=== PATIENT | female | born 1955 | race Caucasian/White ===

== ENCOUNTER 2023-08-23 14:17 | Inpatient (IN) ==
--- NOTE | 2023-08-23 14:42 | Emergency Department Note ---
Impression & Plan Abdominal pain, acute, epigastric, Small bowel obstruction, Enteritis ED Provider Note Provider: Willie Mcdonnell MD DATE OF SERVICE: 08/23/2023 CHIEF COMPLAINT: Abdominal pain HISTORY OF PRESENT ILLNESS: Patient is a 67-year-old female history of arthritis, GERD/ulcers, and stroke presenting here today reporting significant upper abdominal pain radiating to her back developing today with nausea. No trauma or syncope. No diarrhea. No history of similar. States it started around 7 AM. Had some food and did not change anything. Took some Tums at home and did not change pain. Has moderate a little bit from when she left [place] to come here. No trauma. No syncope. Pain in the epigastrium rating to the back as well as some chest discomfort. No pain in the arms or upper back or chest pain. History of appendectomy. PAST MEDICAL HISTORY: As noted above MEDICATIONS: Reviewed home medications includes aspirin daily as well as PPI SOCIAL HISTORY: Rare alcohol. Non-smoker PHYSICAL EXAM: GENERAL: alert and oriented in no acute distress on stretcher Head: normocephalic and atraumatic EYES: No injection, discharge or icterus. NECK: Trachea midline. ENT: Mucous membranes pink and moist. LUNGS: Airway patent. No retractions. Breath sounds clear HEART: Regular rate and rhythm. No chest wall tenderness ABDOMEN: Soft with some epigastric tenderness and guarding. No lower abdominal tenderness. BACK: No bilateral flank tenderness. SKIN: Acyanotic, warm, dry, without rashes EXTREMITIES: Without swelling, tenderness or deformity with some arthritic deformities to the hand NEUROLOGICAL: No focal deficits. No aphasia. No facial droop or slurred speech. Ambulatory. EK bpm normal sinus rhythm. No PVC or PAC. No acute ST segment elevation or depression with a QTc of 459. CONTINUOUS CARDIAC MONITORING: was ordered and showed a heart rate of 70s bpm in normal sinus rhythm Patient's laboratory studies and imaging reviewed. Differential includes Appendicitis, infections, diverticulitis, UTI, obstruction, mesenteric ischemia, aortic pathology, CAD/KS/ACS, inflammatory bowel disease, renal colic, PUD, pancreatitis, biliary pathology, hernia, volvulus, constipation, as well as other pathologies. IMPRESSION/MEDICAL DECISION MAKING: Patient without focal deficit and in good spirits. Moderate pain in the epigastrium radiating to the back. EKG obtained without significant acute changes. Is somewhat hypertensive here. Question if this is GI related such as pancreatitis, gastric ulcer/gastritis, or biliary related. Will wish to exclude dissection given location of pain. Troponin will be sent for completeness but seems less likely be true ACS. Doubt primary pulmonary complaint denies shortness of breath. Not hypoxic here. Nausea has moderated at this point. Given some morphine for pain. Will send for CTA of the chest and abdomen pelvis in addition to blood work for further elucidation of underlying pathology of her complaints. Blood work without anemia or thrombocytopenia. Slight leukocytosis of 13.7 as noted on blood work. Normal renal function. No significant LFT abnormalities or lipase elevation and doubt hepatitis or pancreatitis. Normal troponin. CT of the chest per radiology without evidence of dissection with small and trace pleural effusions and some coronary artery calcification. Abdominal CT without evidence of dissection per report but with some evidence however concerning for nonspecific enteritis as well as an area in the left mid abdomen that may be an associated ileus or developing small bowel obstruction. No free air or pneumatosis is noted. Given her symptoms do question if this might be a developing SBO. Discussed with the patient recommend that we monitor here at the hospital. Do not believe NG tube is needed at this point but low threshold. Not peritoneal and severe pain after dose of morphine and doubt ischemia. Discussed with hospitalist team for further care here. DIAGNOSIS: Epigastric pain, enteritis, SBO DISPOSITION: Hospitalist will evaluate Patient was agreeable with this plan. Past Med/Surg History Medical History CVA (cerebral vascular accident) History of nonmelanoma skin cancer Steroid dependence Primary insomnia Obesity Rheumatoid arthritis GERD (gastroesophageal reflux disease) Vasculopathy HTN (hypertension) Reactive airway disease without complication Dyslipidemia Surgical History Hx of tonsillectomy S/P appy S/P total knee arthroplasty Social History Smoking Status: Former smoker Tobacco Type: Cigarettes Cigarettes Per Day: 1 1/2 PPD; Hx Alcohol Use: Yes Hx Substance Use: No Preferred Language: Turkish Communication Ability: Effective Primary Products Inspectors Required: No Beliefs That Will Affect Care: None Current Living Situation: Spouse Feels Safe at Home: Yes Safety Concerns: Feels Safe At This Time Assistive Devices: Hearing Aid - Bilateral Allergies Allergies Allergy/AdvReac Type Severity Reaction Status Date / Time leflunomide [From Arava] AdvReac Unknown Unknown Verified 08/23/23 16:34 Sulfa (Sulfonamide AdvReac Unknown Unknown Verified 08/23/23 16:34 Antibiotics) Home Meds Home Medications Medication Instructions Recorded Confirmed abatacept 125 mg/mL subcutaneous 125 mg subcut WK 08/23/23 08/23/23 syringe (Orencia) albuterol sulfate 90 mcg/actuation 2 puff inhalation Q4H PRN 08/23/23 08/23/23 aerosol inhaler Shortness Of Breath alendronate 70 mg tablet 70 mg PO WK 08/23/23 08/23/23 aspirin 325 mg tablet 325 mg PO DAILY 08/23/23 08/23/23 cholecalciferol (vitamin D3) 125 125 mcg PO DAILY 08/23/23 08/23/23 mcg (5,000 unit) capsule fluticasone furoate 100 2 inh inhalation QAM 08/23/23 08/23/23 mcg-vilanterol 25 mcg/dose inhalation powder (Breo Ellipta) folic acid 1 mg tablet 1 mg PO QAM 08/23/23 08/23/23 hydrochlorothiazide 25 mg tablet 25 mg PO QAM 08/23/23 08/23/23 hydrocodone 5 mg-acetaminophen 325 1 tab PO Q6H PRN Pain 08/23/23 08/23/23 mg tablet hydroxychloroquine 200 mg tablet 200 mg PO HS 08/23/23 08/23/23 losartan 25 mg tablet 25 mg PO QAM 08/23/23 08/23/23 methotrexate sodium 2.5 mg tablet 20 mg PO WK 08/23/23 08/23/23 metoprolol succinate 25 mg 25 mg PO HS 08/23/23 08/23/23 tablet,extended release 24 hr multivitamin 1 tab PO DAILY 08/23/23 08/23/23 omeprazole 20 mg capsule,delayed 20 mg PO BID 08/23/23 08/23/23 release pravastatin 20 mg tablet 20 mg PO HS 08/23/23 08/23/23 prednisone 5 mg tablet 5 mg PO DAILY 08/23/23 08/23/23 temazepam 30 mg capsule 15 mg PO HS 08/23/23 08/23/23 Results & Data (ED) Vital Signs Vital Signs - 24 hr 08/23/23 14:21 08/23/23 14:46 08/23/23 14:46 Temperature 36.4 C L Temperature Source Temporal Artery Scan Pulse Rate 78 75 Pulse Rate [Right Finger] 73 Respiratory Rate 20 16 16 Respiratory Effort / Characteristics Non-Labored Spontaneous Respiratory Depth Normal Blood Pressure 160/92 H Blood Pressure [Left Arm] 140/83 Blood Pressure Mean 114 Blood Pressure Mean [Left Arm] 102 Pulse Oximetry 95 96 96 Oxygen Delivery Method Room Air Room Air Room Air Sepsis Recent Fever Within 48 Hours No Sepsis New/Unexplained Change in Mental Status N/A Sepsis Action Taken by Nursing No Action Required 08/23/23 16:17 Temperature Temperature Source Pulse Rate Pulse Rate [Right Finger] 72 Respiratory Rate 18 Respiratory Effort / Characteristics Respiratory Depth Blood Pressure Blood Pressure [Left Arm] 140/83 Blood Pressure Mean Blood Pressure Mean [Left Arm] 102 Pulse Oximetry 97 Oxygen Delivery Method Sepsis Recent Fever Within 48 Hours Sepsis New/Unexplained Change in Mental Status Sepsis Action Taken by Nursing Laboratory Data 08/23/23 14:40 08/23/23 14:40 Lab Results 08/23/23 Range/Units 14:40 WBC 13.70 H (4.8-10.8) K/ul RBC 4.60 (4.20-5.40) M/uL Hgb 14.3 (12.0-16.0) g/dl POC Hgb 14.6 (12.0-16.0) g/dl Hct 42.5 (37.0-47.0) % POC Hct 43 (37-47) % MCV 92.4 (80.0-100.0) fL MCH 31.1 (25.0-34.0) pg MCHC 33.6 (32.0-36.0) g/dL RDW Std Deviation 44.2 (36.4-46.3) fL RDW Coeff of Viraj 13.2 (11.5-14.5) % Plt Count 292 (130-400) K/uL MPV 10.5 (9.4-12.4) fL Immature Gran % (Auto) 0.5 % Neut % (Auto) 80.5 % Lymph % (Auto) 11.6 % Mesa % (Auto) 6.9 % Eos % (Auto) 0.2 % Baso % (Auto) 0.3 % Neut # (Auto) 11.03 H (1.40-6.50) K/uL Lymph # (Auto) 1.59 (1.20-3.40) K/uL Mesa # (Auto) 0.94 H (0.11-0.59) K/uL Eos # (Auto) 0.03 (0.00-0.50) K/uL Baso # (Auto) 0.04 (0.00-0.20) K/uL Immature Gran # (Auto) 0.07 (0.01-0.20) K/uL PT 11.1 (9.0-12.0) Seconds INR 1.0 (0.9-1.1) POC Sodium 133 L (135-144) mmol/L Sodium 133 L (136-145) mmol/L POC Potassium 3.4 (3.3-5.0) mmol/L Potassium 3.6 (3.5-5.1) mmol/L POC Chloride 96 L (101-112) mmol/L Chloride 97 L (98-107) mmol/L Carbon Dioxide 28 (21-32) mmol/L POC Total CO2 26 (24-31) mmol/L Anion Gap 8 (3-11) POC Anion Gap 14.0 L (16-25) mmol/L POC BUN 13 (7-18) mg/dl BUN 14 (6-23) mg/dl Creatinine 0.67 (0.6-1.2) mg/dl POC Creatinine 0.7 (0.6-1.3) mg/dl Est Cr Clr Drug Dosing 81.6 ml/min Est GFR ( Amer) 103.9 ml/min Est GFR (Non-Af Amer) 89.7 ml/min BUN/Creatinine Ratio 20.9 H (10-20) Glucose 117 H (70-99(Fasting)) mg/dl POC Glucose (other) 121 H (70-99) mg/dl Calcium 9.7 (8.6-10.3) mg/dl POC Ioniz Calcium Mikala 1.14 (1.12-1.32) mmol/l Total Bilirubin 0.9 (0.2-1.0) mg/dl AST 13 (13-39) U/L ALT 12 (7-52) U/L Alkaline Phosphatase 61 (34-104) U/L Troponin I High Sens 8.0 (0-14) pg/ml Total Protein 6.9 (6.0-8.3) gm/dl Albumin 4.1 (3.4-5.0) gm/dl Globulin 2.8 (2.5-4.0) gm/dl Albumin/Globulin Ratio 1.5 (0.9-2) Lipase 4 L (11-82) U/L Administered Medications Hydroxychloroquine Sulfate (Hydroxychloroquine Sulfate 200 Mg Tab) 200 mg PO HS PAOLA Stop: 09/22/23 20:59 Last Admin: 08/23/23 21:06 Dose: 200 mg Documented By: SAVANAH Potassium Chloride/Dextrose/Sod Cl (D5w And 1/2nss + 20meq Kcl) 20 meq in 1,000 mls @ 100 mls/hr IV .Q10H PAOLA; Protocol Stop: 09/22/23 18:14 Last Admin: 08/23/23 20:40 Dose: 100 mls/hr Documented By: SAVANAH Metoprolol Succinate (Metoprolol Succ 25mg Ext Rel Tab) 25 mg PO HS [facility] Stop: 09/22/23 20:59 Last Admin: 08/23/23 21:06 Dose: 25 mg Documented By: SAVANAH Pantoprazole Sodium (Pantoprazole 40 Mg Tab) 40 mg PO BID PAOLA Stop: 09/22/23 20:59 Last Admin: 08/23/23 21:06 Dose: 40 mg Documented By: SAVANAH Temazepam (Temazepam 15 Mg Capsule) 15 mg PO HS [facility] Stop: 09/22/23 20:59 Last Admin: 08/23/23 21:09 Dose: 15 mg Documented By: SAVANAH Discontinued Medications Ioversol (Optiray 350 500ml) 112 ml IV ONCE ONE Stop: 08/23/23 14:53 Last Admin: 08/23/23 14:52 Dose: 112 ml Documented By: MERCY Morphine Sulfate (Morphine Sulfate 4 Mg/Ml 1 Ml Carp\Vial) 4 mg IV NOW STA Stop: 08/23/23 14:43 Last Admin: 08/23/23 15:13 Dose: 4 mg Documented By: LYDIA Imaging Data Radiologist's Impression: Abdomen/Pelvis CTA 08/23/23 14:39 CT ANGIOGRAM OF THE ABDOMEN AND PELVIS CLINICAL HISTORY: Epigastric abdominal pain. COMPARISON STUDY: No priors. TECHNIQUE: Following the IV administration of 112 cc of Optiray 350, CT angiogram of the abdomen and pelvis was performed from the lung bases the proximal femora. Images are reviewed in the axial, sagittal, and coronal planes. 3-D MIPS images are created and assessed. IV contrast was administered without complication. A dose lowering technique was utilized adhering to the principles of ALARA. FINDINGS: Lower chest: The heart is enlarged and without pericardial effusion. The coronary arteries are densely calcified. There are small pleural effusions, left larger than right noting bibasilar scarring/atelectasis. There is no airspace consolidation typical for pneumonia. Liver: The contrast-enhanced liver is normal in size, contour, and attenuation. There is no intrahepatic biliary ductal dilatation. The main portal veins appear patent. Gallbladder: Unremarkable. Spleen: Normal in size and attenuation noting heterogeneous arterial phase enhancement. Pancreas: Unremarkable. Adrenal glands: There is nonspecific thickening of the adrenal glands. Kidneys: The contrast enhanced kidneys are normal in size and without hydronephrosis. The kidneys enhance symmetrically. Abdominal aorta and iliac arteries: There is advanced atherosclerotic calcification and mild ectasia of the abdominal aorta. The abdominal aorta is patent. No dissection is seen. The iliac arteries are patent bilaterally noting advanced atherosclerotic plaque and irregularity. Major branches of the abdominal aorta: The celiac trunk, superior mesenteric, and inferior mesenteric arteries are widely patent. Hepatic arterial anatomy is conventional. The splenic artery is patent. Single bilateral renal arteries are widely patent. Bowel: There are hyperemic appearing loops of relatively decompressed small bowel in the left lower quadrant (best seen on axial image #482) with surrounding infiltration and trace interloop fluid. There are distended and fluid-filled loops of more proximal small bowel in the left midabdomen which measure up to 2.8 cm in diameter. There is an apparent focal twisting/transition point in the left midabdomen seen on axial image #371. The distal small bowel appears decompressed. There is no pneumatosis intestinalis or portal venous gas. There are scattered colonic diverticula without CT evidence of acute diverticulitis. Mild/moderate fecal retention is noted throughout the colon. A small duodenal diverticulum is noted. The appendix is not visualized. Peritoneum: There is no intraperitoneal free air or abdominal ascites. Lymphadenopathy: None. Pelvic viscera: The bladder, uterus, and adnexa are normal as visualized. There are bilateral adnexal surgical clips. A small volume of free fluid is seen in the cul-de-sac. Skeletal structures: The skeletal structures are osteopenic. There is mild to moderate lumbosacral spondylosis. No lytic or blastic bony lesions are seen. Advanced arthritic changes seen in the left hip. IMPRESSION: 1. Unremarkable CT angiogram of the abdominal aorta and its major branches. 2. There are decompressed loops of small bowel in the left mid to lower abdomen which appear hyperemic with surrounding mesenteric infiltration and fluid. The appearance is consistent with a nonspecific enteritis. 3. The proximal small bowel loops are distended, and there is an apparent focal transition point in the left mid abdomen. Although this may be related to an associated ileus, a developing small bowel obstruction is not excluded. The distal small bowel loops are decompressed. Clinical correlation will be essential. 4. No intraperitoneal free air is identified. There is no pneumatosis intestinalis or portal venous gas. 5. Cardiomegaly and small pleural effusions. 6. Additional findings as above.. ACT 112: Negative or not required by law. Electronically signed by: Jorje Hu M.D. 08/23/2023 3:39 PM Chest CTA 08/23/23 14:39 CT ANGIOGRAPHY OF THE CHEST DISSECTION PROTOCOL CLINICAL HISTORY: chest/epigastric pain to back COMPARISON STUDY: No previous studies for comparison. TECHNIQUE: Before and following the IV administration of 112 mL of Optiray, helical axial images of the chest were obtained. Maximal intensity projections and sagittal and coronal reformats were viewed on an independent 3D workstation. IV contrast was administered without complication. Automated exposure control was utilized for the study. A dose lowering technique was utilized adhering to the principles of ALARA. CT DOSE: 2571.78 mGy.cm FINDINGS: The caliber of the thoracic aorta is normal. There is no thoracic aortic dissection or intramural hematoma. There is moderate atherosclerotic plaque of the thoracic aorta. The heart is mildly enlarged. There is no pericardial effusion. There is moderate coronary artery calcification. Small left and trace right pleural effusions are present. Subpleural opacities favor atelectasis. There is no consolidation to suggest pneumonia. Suspected mild pulmonary edema with interlobular septal thickening. There are no pulmonary emboli. No acute fractures within the bony thorax. The abdomen and pelvis CT will be reported separately. IMPRESSION: 1. No thoracic aortic dissection. 2. Small left and trace right pleural effusions. 3. Mild cardiomegaly and moderate coronary artery calcification. 4. Mild interstitial pulmonary edema. ACT 112: Negative or not required by law. Electronically signed by: Claudio Sterling M.D. 08/23/2023 3:15 PM Discharge Plan Visit Data Chief Complaint: Abdominal Pain Stated Complaint: ABD PAIN, BACK PAIN ED Provider: Willie Mcdonnell Discharge Problem: Abdominal pain, acute, epigastric, Small bowel obstruction, Enteritis Patient Disposition: Admitted As Inpatient Discharge Instructions Interventions: ED Discharge Assessment Last Done: 08/23/23 17:38
[2023-08-23] MEDS: OPTIRAY 350 500ml IV ONE (14:52)
[2023-08-23 14:53] LABS: iSTAT Creatinine 0.7 mg/dl (0.6-1.3); iSTAT Hemoglobin 14.6 g/dl (12.0-16.0); iSTAT Ionized Calcium 1.14 mmol/l (1.12-1.32); iSTAT Potassium 3.4 mmol/L (3.3-5.0)
[2023-08-23 15:02] LABS: Basophils # (auto) 0.04 K/uL (0.00-0.20); Basophils % (auto) 0.3 %; Eosinophils # (auto) 0.03 K/uL (0.00-0.50); Eosinophils % (auto) 0.2 %; Hematocrit (blood only) 42.5 % (37.0-47.0); Hemoglobin 14.3 g/dl (12.0-16.0); Immature Granulocytes # (auto) 0.07 K/uL (0.01-0.20); Immature Granulocytes % (auto) 0.5 %; Lymphocytes # (auto) 1.59 K/uL (1.20-3.40); Lymphocytes % (auto) 11.6 %; Mean Corpuscular Hemoglobin 31.1 pg (25.0-34.0); Mean Corpuscular Hgb Conc 33.6 g/dL (32.0-36.0); Mean Corpuscular Volume 92.4 fL (80.0-100.0); Mean Platelet Volume 10.5 fL (9.4-12.4); Monocytes # (auto) 0.94 K/uL (0.11-0.59); Monocytes % (auto) 6.9 %; Neutrophils # (auto) 11.03 K/uL (1.40-6.50); Neutrophils % (auto) 80.5 %; Platelet Count 292 K/uL (130-400); RDW Coefficient of Variation 13.2 % (11.5-14.5); RDW Standard Deviation 44.2 fL (36.4-46.3)
[2023-08-23] MEDS: MoRPHine SULFATE 4 MG/ML 1 ML CARP\\VIAL IV STA (15:13)
--- NOTE | 2023-08-23 15:16 | CT Scan Report ---
CT ANGIOGRAPHY OF THE CHEST DISSECTION PROTOCOL CLINICAL HISTORY: chest/epigastric pain to back COMPARISON STUDY: No previous studies for comparison. TECHNIQUE: Before and following the IV administration of 112 mL of Optiray, helical axial images of t he chest were obtained. Maximal intensity projections and sagittal and coronal reformats were viewed on an independent 3D workstation. IV contrast was administered without complication. Automated exp osure control was utilized for the study. A dose lowering technique was utilized adhering to the cassidy Monteiro. CT DOSE: 2571.78 mGy.cm FINDINGS: The caliber of the thoracic aorta is normal. There is no thoracic aortic dissection or int ramural hematoma. There is moderate atherosclerotic plaque of the thoracic aorta. The heart is mildly enlarged. There is no pericardial effusion. There is moderate coronary artery calcification. Small l eft and trace right pleural effusions are present. Subpleural opacities favor atelectasis. There is n o consolidation to suggest pneumonia. Suspected mild pulmonary edema with interlobular septal thicken ing. There are no pulmonary emboli. No acute fractures within the bony thorax. The abdomen and pelvis CT will be reported separately. IMPRESSION: 1. No thoracic aortic dissection. 2. Small left and trace right pleural effusions. 3. Mild cardiomegaly and moderate coronary artery calcification. 4. Mild interstitial pulmonary edema. ACT 112: Negative or not required by law. Electronically signed by: Claudio Sterling M.D. 08/23/2023 3:15 PM
[2023-08-23 15:17] LABS: Albumin Globulin Ratio 1.5 (0.9-2); Albumin Level 4.1 gm/dl (3.4-5.0); BUN Creatinine Ratio 20.9 (10-20); Bilirubin,Total 0.9 mg/dl (0.2-1.0); Calcium 9.7 mg/dl (8.6-10.3); Creatinine Clr Calc Pharmacy 81.6 ml/min; Est GFR (African American) 103.9 ml/min; Est GFR (Non-African American) 89.7 ml/min; Globulin 2.8 gm/dl (2.5-4.0); Potassium 3.6 mmol/L (3.5-5.1); Total Protein 6.9 gm/dl (6.0-8.3)
[2023-08-23 15:33] LABS: Prothrombin Time 11.1 Seconds (9.0-12.0)
--- NOTE | 2023-08-23 15:39 | Electrocardiogram Report ---
Test Reason : Blood Pressure : / mmHG Vent. Rate : 077 BPM Atrial Rate : 077 BPM P-R Int : 146 ms QRS Dur : 094 ms QT Int : 406 ms P-R-T Axes : 034 005 031 degrees QTc Int : 459 ms Normal sinus rhythm Minimal voltage criteria for LVH, may be normal variant Possible Inferior infarct , age undetermined Abnormal ECG No previous ECGs available Confirmed by Ayan Sams ([id number]) on 08/23/2023 3:38:25 PM Referred By: Confirmed By:Adrian Sams
--- NOTE | 2023-08-23 15:40 | CT Scan Report ---
CT ANGIOGRAM OF THE ABDOMEN AND PELVIS CLINICAL HISTORY: Epigastric abdominal pain. COMPARISON STUDY: No priors. TECHNIQUE: Following the IV administration of 112 cc of Optiray 350, CT angiogram of the abdomen and pelvis was performed from the lung bases the proximal femora. Images are reviewed in the axial, sagit binh, and coronal planes. 3-D MIPS images are created and assessed. IV contrast was administered witho ut complication. A dose lowering technique was utilized adhering to the principles of ALARA. FINDINGS: Lower chest: The heart is enlarged and without pericardial effusion. The coronary arteries are densel y calcified. There are small pleural effusions, left larger than right noting bibasilar scarring/atel ectasis. There is no airspace consolidation typical for pneumonia. Liver: The contrast-enhanced liver is normal in size, contour, and attenuation. There is no intrahepa tic biliary ductal dilatation. The main portal veins appear patent. Gallbladder: Unremarkable. Spleen: Normal in size and attenuation noting heterogeneous arterial phase enhancement. Pancreas: Unremarkable. Adrenal glands: There is nonspecific thickening of the adrenal glands. Kidneys: The contrast enhanced kidneys are normal in size and without hydronephrosis. The kidneys enh ance symmetrically. Abdominal aorta and iliac arteries: There is advanced atherosclerotic calcification and mild ectasia of the abdominal aorta. The abdominal aorta is patent. No dissection is seen. The iliac arteries are patent bilaterally noting advanced atherosclerotic plaque and irregularity. Major branches of the abdominal aorta: The celiac trunk, superior mesenteric, and inferior mesenteric arteries are widely patent. Hepatic arterial anatomy is conventional. The splenic artery is patent. Single bilateral renal arteries are widely patent. Bowel: There are hyperemic appearing loops of relatively decompressed small bowel in the left lower q uadrant (best seen on axial image #482) with surrounding infiltration and trace interloop fluid. Ther e are distended and fluid-filled loops of more proximal small bowel in the left midabdomen which penelope ure up to 2.8 cm in diameter. There is an apparent focal twisting/transition point in the left midabd omen seen on axial image #371. The distal small bowel appears decompressed. There is no pneumatosis i ntestinalis or portal venous gas. There are scattered colonic diverticula without CT evidence of acut e diverticulitis. Mild/moderate fecal retention is noted throughout the colon. A small duodenal diver ticulum is noted. The appendix is not visualized. Peritoneum: There is no intraperitoneal free air or abdominal ascites. Lymphadenopathy: None. Pelvic viscera: The bladder, uterus, and adnexa are normal as visualized. There are bilateral adnexal surgical clips. A small volume of free fluid is seen in the cul-de-sac. Skeletal structures: The skeletal structures are osteopenic. There is mild to moderate lumbosacral sp ondylosis. No lytic or blastic bony lesions are seen. Advanced arthritic changes seen in the left hip . IMPRESSION: 1. Unremarkable CT angiogram of the abdominal aorta and its major branches. 2. There are decompressed loops of small bowel in the left mid to lower abdomen which appear hyperemi c with surrounding mesenteric infiltration and fluid. The appearance is consistent with a nonspecific enteritis. 3. The proximal small bowel loops are distended, and there is an apparent focal transition point in t he left mid abdomen. Although this may be related to an associated ileus, a developing small bowel ob struction is not excluded. The distal small bowel loops are decompressed. Clinical correlation will b e essential. 4. No intraperitoneal free air is identified. There is no pneumatosis intestinalis or portal venous g as. 5. Cardiomegaly and small pleural effusions. 6. Additional findings as above.. ACT 112: Negative or not required by law. Electronically signed by: Jorje Hu M.D. 08/23/2023 3:39 PM
--- NOTE | 2023-08-23 16:09 | History & Physical Report ---
Date of Service August 23, 2023 History of Present Illness Chief Complaint: abdominal pain Primary Care Provider: Ellis Matos MD Patient is 67 year old female with PMH reports this morning started with epigastric discomfort radiated to back and nausea and vomiting Past Med/Surg History Social History Smoking Status: Former smoker Preferred Language: Mauritian Feels Safe at Home: Yes Results & Data Results & Data Vital Signs (Past 12 Hours) Vital Signs Temp Pulse Pulse Resp BP BP Pulse Ox 08/23/23 14:46 75 16 96 08/23/23 14:46 73 16 140/83 96 08/23/23 14:21 36.4 C L 78 20 160/92 H 95 O2 Del Method 08/23/23 14:46 Room Air 08/23/23 14:46 Room Air 08/23/23 14:21 Room Air
--- NOTE | 2023-08-23 16:28 | History & Physical Report ---
Date of Service August 23, 2023 Assessment & Plan (1) Abdominal pain, acute, epigastric: (2) Small bowel obstruction: Plan: Patient is a 67-year-old female with PMH HTN, dyslipidemia, CVA, RA, chronic prednisone use, vasculopathy presents to the ER with abdominal pain, nausea that started today. Denies vomiting, fever/chills. Last BM yesterday In ER afebrile, vital stable. WBC: 13.7, lipase: 4, negative troponin CT abdomen pelvis: Unremarkable CT angiogram of the abdominal aorta and its major branches. There are decompressed loops of small bowel in the left mid to lower abdomen which appear hyperemic with surrounding mesenteric infiltration and fluid. The appearance is consistent with a nonspecific enteritis. The proximal small bowel loops are distended, and there is an apparent focal transition point in the left mid abdomen. Although this may be related to an associated ileus, a developing small bowel obstruction is not excluded. The distal small bowel loops are decompressed. No intraperitoneal free air is identified. There is no pneumatosis intestinalis or portal venous gas. CTA chest: No thoracic aortic dissection. Small left and trace right pleural effusions. Mild cardiomegaly and moderate coronary artery calcification. Mild interstitial pulmonary edema. In ER given morphine 4 mg IV Patient denies any recurrent abdominal pain. Patient reports nausea has resolved. Has not had any vomiting during ER course NPO Gentle IVF If develops worsening nausea, vomiting plan to place NG tube KUB in a.m. General surgery consult CBC, BMP in a.m. (3) Rheumatoid arthritis: (4) Steroid dependence: Plan: Follows with Dr. Sierra On abatacept and methotrexate weekly Continue prednisone, hydroxychloroquine (5) HTN (hypertension): Plan: BP stable Continue losartan, metoprolol succinate, HCTZ (6) GERD (gastroesophageal reflux disease): Plan: Continue PPI (7) Dyslipidemia: Plan: Hold pravastatin for now (8) CVA (cerebral vascular accident): Plan: History CVA On aspirin. Hold statin for now (9) Obesity: Plan: BMI: 33 DVT Prophylaxis SCDs for now Full Code as per discussion with pt Follows with Dr Matos for routine care Pt was seen and care coordinated with Dr Billings. See addendum I spent a total of 76 minutes reviewing notes, outpatient records, labs, medication, coordinating, documenting and providing care for this patient excluding time spent in the performance of separately billed services. History of Present Illness Chief Complaint: Abdominal pain Primary Care Provider: Ellis Matos MD Patient is a 67-year-old female presents to the ER with abdominal pain that started today. This began approximately 24 hours prior to arrival with patient seeing her primary care provider via telemedicine on the morning of just prior to coming to the ER. She reported experiencing upper abdominal pain since this morning and has been burping more feeling intermittent nausea. She denies any fevers chills dysphagia odynophagia vomiting constipation or diarrhea. Last bowel movement was yesterday. Reports two loose BM's yesterday but this in not unusual for patient. Patient reported history of appendectomy 15 years ago. She is steroid-dependent taking prednisone daily for rheumatoid arthritis and takes omeprazole 20 mg twice daily. She reports a history of EGD with ulcers in the past last noted EGD was March 2019 with a normal esophagus and nonbleeding gastric ulcers that were biopsied and negative and normal examined duodenum. Patient had telemedicine visit today and sucralfate was to be given however decision was made to be evaluated at ER instead. Given that her pain was worsening as the day progressed she presented to the ER. Per ER provider her upper abdominal pain/lower chest radiates to her back. Patient has no history of trauma or syncope and no history of similar symptoms in the past. She reports that when symptoms began around 7 AM and initially thought she was hungry so had granola bar and that did not change her pain. Pain progressed throughout the day. She also took Tums at home which did not help. She has no pain in the arms or upper back and no other chest pain. Denies fever/chills, diaphoresis, melena, hematochezia, CHENG, dizziness, syncope, vision changes, neck pain, CP, SOB, orthopnea, palpitations, rhinorrhea, paresthesias, weakness, extremity edema, rashes, urinary symptoms. In ER an EKG was obtained without significantly acute changes. CTA of the chest abdomen pelvis ruled out evidence of dissection. This did find evidence of nonspecific enteritis versus associated ileus versus small bowel obstruction. No free air or pneumatosis was noted. No NG tube was placed at this point as she was stable and not vomiting. Allergies Allergy/AdvReac Type Severity Reaction Status Date / Time leflunomide [From Arava] AdvReac Unknown Unknown Verified 08/23/23 16:34 Sulfa (Sulfonamide AdvReac Unknown Unknown Verified 08/23/23 16:34 Antibiotics) Home Medications Medication Instructions Recorded Confirmed Type abatacept 125 mg/mL subcutaneous 125 mg subcut WK 08/23/23 08/23/23 History syringe (Orencia) albuterol sulfate 90 mcg/actuation 2 puff inhalation Q4H PRN 08/23/23 08/23/23 History aerosol inhaler Shortness Of Breath alendronate 70 mg tablet 70 mg PO WK 08/23/23 08/23/23 History aspirin 325 mg tablet 325 mg PO DAILY 08/23/23 08/23/23 History cholecalciferol (vitamin D3) 125 125 mcg PO DAILY 08/23/23 08/23/23 History mcg (5,000 unit) capsule fluticasone furoate 100 2 inh inhalation QAM 08/23/23 08/23/23 History mcg-vilanterol 25 mcg/dose inhalation powder (Breo Ellipta) folic acid 1 mg tablet 1 mg PO QAM 08/23/23 08/23/23 History hydrochlorothiazide 25 mg tablet 25 mg PO QAM 08/23/23 08/23/23 History hydrocodone 5 mg-acetaminophen 325 1 tab PO Q6H PRN Pain 08/23/23 08/23/23 History mg tablet hydroxychloroquine 200 mg tablet 200 mg PO HS 08/23/23 08/23/23 History losartan 25 mg tablet 25 mg PO QAM 08/23/23 08/23/23 History methotrexate sodium 2.5 mg tablet 20 mg PO WK 08/23/23 08/23/23 History metoprolol succinate 25 mg 25 mg PO HS 08/23/23 08/23/23 History tablet,extended release 24 hr multivitamin 1 tab PO DAILY 08/23/23 08/23/23 History omeprazole 20 mg capsule,delayed 20 mg PO BID 08/23/23 08/23/23 History release pravastatin 20 mg tablet 20 mg PO HS 08/23/23 08/23/23 History prednisone 5 mg tablet 5 mg PO DAILY 08/23/23 08/23/23 History temazepam 30 mg capsule 15 mg PO HS 08/23/23 08/23/23 History Past Med/Surg History Medical History (Updated 08/23/23 @ 18:18 by Kirsten Marley PA-C) CVA (cerebral vascular accident) History of nonmelanoma skin cancer Steroid dependence Primary insomnia Obesity Rheumatoid arthritis GERD (gastroesophageal reflux disease) Vasculopathy HTN (hypertension) Reactive airway disease without complication Dyslipidemia Surgical History Hx of tonsillectomy S/P appy S/P total knee arthroplasty Social History (Updated 08/23/23 @ 17:11 by Kirsten Marley PA-C) Smoking Status: Former smoker Hx Alcohol Use: Yes (1 mixed drink a week) Hx Substance Use: No Preferred Language: Sami Feels Safe at Home: Yes Review of Systems Review of Systems: All systems reviewed & are unremarkable except as noted in HPI & below Physical Exam Physical Exam: General: no acute distress, non-ill appearing, overweight female Head: normocephalic, atraumatic Eyes: conjunctiva non-injected, anicteric ENT: normal inspection external ears, nose, mucous membranes moist Neck: supple, trachea midline Lungs: clear, no respiratory distress, no wheezing/rhonchi/rales CV: RRR, no murmur Abd: normal BS, soft, +tender to palpation epigastric and slight to LLE without rebound or guarding Ext: no cyanosis, no calf tenderness, BLE large without pitting edema Neuro: A&O x 3, no focal deficits noted, normal affect Skin: warm, dry Results & Data Results & Data Vital Signs (Past 12 Hours) Vital Signs Temp Pulse Pulse Resp BP BP Pulse Ox 08/23/23 14:46 75 16 96 08/23/23 14:46 73 16 140/83 96 08/23/23 14:21 36.4 C L 78 20 160/92 H 95 O2 Del Method 08/23/23 14:46 Room Air 08/23/23 14:46 Room Air 08/23/23 14:21 Room Air Laboratory Results Short CBC 08/23/23 Range/Units 14:40 WBC 13.70 H (4.8-10.8) K/ul Hgb 14.3 (12.0-16.0) g/dl Hct 42.5 (37.0-47.0) % Plt Count 292 (130-400) K/uL BMP 08/23/23 14:40 Sodium 133 L Potassium 3.6 Chloride 97 L Carbon Dioxide 28 BUN 14 Creatinine 0.67 Glucose 117 H Calcium 9.7 Liver Function 08/23/23 Range/Units 14:40 Total Bilirubin 0.9 (0.2-1.0) mg/dl AST 13 (13-39) U/L ALT 12 (7-52) U/L Alkaline Phosphatase 61 (34-104) U/L Albumin 4.1 (3.4-5.0) gm/dl Diagnostic Findings Abdomen/Pelvis CTA 08/23/23 14:39 CT ANGIOGRAM OF THE ABDOMEN AND PELVIS CLINICAL HISTORY: Epigastric abdominal pain. COMPARISON STUDY: No priors. TECHNIQUE: Following the IV administration of 112 cc of Optiray 350, CT angiogram of the abdomen and pelvis was performed from the lung bases the proximal femora. Images are reviewed in the axial, sagittal, and coronal planes. 3-D MIPS images are created and assessed. IV contrast was administered without complication. A dose lowering technique was utilized adhering to the principles of ALARA. FINDINGS: Lower chest: The heart is enlarged and without pericardial effusion. The coronary arteries are densely calcified. There are small pleural effusions, left larger than right noting bibasilar scarring/atelectasis. There is no airspace consolidation typical for pneumonia. Liver: The contrast-enhanced liver is normal in size, contour, and attenuation. There is no intrahepatic biliary ductal dilatation. The main portal veins appear patent. Gallbladder: Unremarkable. Spleen: Normal in size and attenuation noting heterogeneous arterial phase enhancement. Pancreas: Unremarkable. Adrenal glands: There is nonspecific thickening of the adrenal glands. Kidneys: The contrast enhanced kidneys are normal in size and without hydronephrosis. The kidneys enhance symmetrically. Abdominal aorta and iliac arteries: There is advanced atherosclerotic calcification and mild ectasia of the abdominal aorta. The abdominal aorta is patent. No dissection is seen. The iliac arteries are patent bilaterally noting advanced atherosclerotic plaque and irregularity. Major branches of the abdominal aorta: The celiac trunk, superior mesenteric, and inferior mesenteric arteries are widely patent. Hepatic arterial anatomy is conventional. The splenic artery is patent. Single bilateral renal arteries are widely patent. Bowel: There are hyperemic appearing loops of relatively decompressed small bowel in the left lower quadrant (best seen on axial image #482) with surrounding infiltration and trace interloop fluid. There are distended and fluid-filled loops of more proximal small bowel in the left midabdomen which measure up to 2.8 cm in diameter. There is an apparent focal twisting/transition point in the left midabdomen seen on axial image #371. The distal small bowel appears decompressed. There is no pneumatosis intestinalis or portal venous gas. There are scattered colonic diverticula without CT evidence of acute diverticulitis. Mild/moderate fecal retention is noted throughout the colon. A small duodenal diverticulum is noted. The appendix is not visualized. Peritoneum: There is no intraperitoneal free air or abdominal ascites. Lymphadenopathy: None. Pelvic viscera: The bladder, uterus, and adnexa are normal as visualized. There are bilateral adnexal surgical clips. A small volume of free fluid is seen in the cul-de-sac. Skeletal structures: The skeletal structures are osteopenic. There is mild to moderate lumbosacral spondylosis. No lytic or blastic bony lesions are seen. Advanced arthritic changes seen in the left hip. IMPRESSION: 1. Unremarkable CT angiogram of the abdominal aorta and its major branches. 2. There are decompressed loops of small bowel in the left mid to lower abdomen which appear hyperemic with surrounding mesenteric infiltration and fluid. The appearance is consistent with a nonspecific enteritis. 3. The proximal small bowel loops are distended, and there is an apparent focal transition point in the left mid abdomen. Although this may be related to an associated ileus, a developing small bowel obstruction is not excluded. The distal small bowel loops are decompressed. Clinical correlation will be essential. 4. No intraperitoneal free air is identified. There is no pneumatosis intestinalis or portal venous gas. 5. Cardiomegaly and small pleural effusions. 6. Additional findings as above.. ACT 112: Negative or not required by law. Electronically signed by: Jorje Hu M.D. 08/23/2023 3:39 PM Chest CTA 08/23/23 14:39 CT ANGIOGRAPHY OF THE CHEST DISSECTION PROTOCOL CLINICAL HISTORY: chest/epigastric pain to back COMPARISON STUDY: No previous studies for comparison. TECHNIQUE: Before and following the IV administration of 112 mL of Optiray, helical axial images of the chest were obtained. Maximal intensity projections and sagittal and coronal reformats were viewed on an independent 3D workstation. IV contrast was administered without complication. Automated exposure control was utilized for the study. A dose lowering technique was utilized adhering to the principles of ALARA. CT DOSE: 2571.78 mGy.cm FINDINGS: The caliber of the thoracic aorta is normal. There is no thoracic aortic dissection or intramural hematoma. There is moderate atherosclerotic plaque of the thoracic aorta. The heart is mildly enlarged. There is no pericardial effusion. There is moderate coronary artery calcification. Small left and trace right pleural effusions are present. Subpleural opacities favor atelectasis. There is no consolidation to suggest pneumonia. Suspected mild pulmonary edema with interlobular septal thickening. There are no pulmonary emboli. No acute fractures within the bony thorax. The abdomen and pelvis CT will be reported separately. IMPRESSION: 1. No thoracic aortic dissection. 2. Small left and trace right pleural effusions. 3. Mild cardiomegaly and moderate coronary artery calcification. 4. Mild interstitial pulmonary edema. ACT 112: Negative or not required by law. Electronically signed by: Claudio Sterling M.D. 08/23/2023 3:15 PM Supervising Physician Co-Signing Physician Notes I have seen and examined the patient and have discussed the case with the provider above. I have reviewed the advanced practitioner's documentation, and I agree with, and take responsibility for that plan of care. 67-year-old female presented with abdominal pain that began today. After treatment in the ER today she feels better but is still having diffuse abdominal pain. Notably she is on chronic opiate therapy and takes hydrocodone/a cetaminophen multiple times daily. She denies any recent abnormal food that may have contributed to a food related infection. She denies any history of diarrhea but has a chronic IBS issue at baseline. She denies any nausea or vomiting. She did take Pepcid and Tums this morning with no relief. On exam she is hemodynamically stable and afebrile and oxygenating well on room air. She is oriented with capacity to make decisions. She is obese. Abdomen is soft with diffuse tenderness worse in the left upper quadrant and right and left lower quadrants. There is no distention. Exam is otherwise noted above. Workup including CBC reveals an elevated white blood cell count of 14 K with left shift. Electrolytes are within normal limits with some evidence of possible mild dehydration. Lipase is normal. Imaging ruled out dissection but did reveal possible enteritis that is nonspecific and proximal small bowel loops that were distended with a focal transition point which may be related to an ileus versus developing small bowel obstruction. 1. Abdominal pain secondary to possible developing small bowel obstruction in the setting of chronic opiate use. Minimize opiate use and patient is aware of this part of the plan. Conservative measures including bowel rest and IV fluid hydration for the time being. Mitigate nausea with antiemetics as needed. Monitor for clinical resolution of symptoms. DO Manuelito
[2023-08-23] MEDS ORDERED: HYDROCODONE/ACETAMOPHEN 5/325MG TAB PO PRN (16:37)
[2023-08-23] MEDS ORDERED: ONDANSETRON INJ 2 MG/ML 2 ML VIAL IV PRN (18:06)
[2023-08-23] MEDS ORDERED: MoRPHine SULFATE 2 MG/ML CARP IV PRN (18:06)
[2023-08-23] MEDS ORDERED: ACETAMINOPHEN 325 MG TAB PO PRN (18:06)
--- NOTE | 2023-08-23 18:26 | Surgery Consultation ---
Date of Consultation August 23, 2023 Assessment & Plan (1) Small bowel obstruction: (2) Abdominal pain, acute, epigastric: Plan 67-year-old woman with prior history of appendectomy presents with enteritis versus possibly developing small bowel obstruction. No surgical intervention is required at this time. Recommend conservative management including n.p.o., IV fluids, bowel rest. We will continue to monitor. We will await return of bowel function. History of Present Illness Reason for Consultation: Possible small bowel obstruction Requesting Physician: Jerri Billings DO Attending Physician: Jerri Billings DO History of Present Illness 67-year-old woman with a past surgical history of open appendectomy presents with a 1 day history of increasing abdominal pain in the upper abdomen. This was accompanied by nausea but no vomiting. She denies fevers or chills. She last had a bowel movement yesterday. She denies passing flatus today. She has been burping. She denies any diarrhea. CT scan demonstrates enteritis versus possibly developing small bowel obstruction. Allergies Allergy/AdvReac Type Severity Reaction Status Date / Time leflunomide [From Arava] AdvReac Unknown Unknown Verified 08/23/23 16:34 Sulfa (Sulfonamide AdvReac Unknown Unknown Verified 08/23/23 16:34 Antibiotics) Home Medications Medication Instructions Recorded Confirmed Type abatacept 125 mg/mL subcutaneous 125 mg subcut WK 08/23/23 08/23/23 History syringe (Orencia) albuterol sulfate 90 mcg/actuation 2 puff inhalation Q4H PRN 08/23/23 08/23/23 History aerosol inhaler Shortness Of Breath alendronate 70 mg tablet 70 mg PO WK 08/23/23 08/23/23 History aspirin 325 mg tablet 325 mg PO DAILY 08/23/23 08/23/23 History cholecalciferol (vitamin D3) 125 125 mcg PO DAILY 08/23/23 08/23/23 History mcg (5,000 unit) capsule fluticasone furoate 100 2 inh inhalation QAM 08/23/23 08/23/23 History mcg-vilanterol 25 mcg/dose inhalation powder (Breo Ellipta) folic acid 1 mg tablet 1 mg PO QAM 08/23/23 08/23/23 History hydrochlorothiazide 25 mg tablet 25 mg PO QAM 08/23/23 08/23/23 History hydrocodone 5 mg-acetaminophen 325 1 tab PO Q6H PRN Pain 08/23/23 08/23/23 History mg tablet hydroxychloroquine 200 mg tablet 200 mg PO HS 08/23/23 08/23/23 History losartan 25 mg tablet 25 mg PO QAM 08/23/23 08/23/23 History methotrexate sodium 2.5 mg tablet 20 mg PO WK 08/23/23 08/23/23 History metoprolol succinate 25 mg 25 mg PO HS 08/23/23 08/23/23 History tablet,extended release 24 hr multivitamin 1 tab PO DAILY 08/23/23 08/23/23 History omeprazole 20 mg capsule,delayed 20 mg PO BID 08/23/23 08/23/23 History release pravastatin 20 mg tablet 20 mg PO HS 08/23/23 08/23/23 History prednisone 5 mg tablet 5 mg PO DAILY 08/23/23 08/23/23 History temazepam 30 mg capsule 15 mg PO HS 08/23/23 08/23/23 History Patient History Medical History CVA (cerebral vascular accident) History of nonmelanoma skin cancer Steroid dependence Primary insomnia Obesity Rheumatoid arthritis GERD (gastroesophageal reflux disease) Vasculopathy HTN (hypertension) Reactive airway disease without complication Dyslipidemia Surgical History Hx of tonsillectomy S/P appy S/P total knee arthroplasty Social History Smoking Status: Former smoker Tobacco Type: Cigarettes Cigarettes Per Day: 1 1/2 PPD; Hx Alcohol Use: Yes Hx Substance Use: No Preferred Language: Omani Communication Ability: Effective License Registration Examiner Required: No Beliefs That Will Affect Care: None Current Living Situation: Spouse Feels Safe at Home: Yes Safety Concerns: Feels Safe At This Time Assistive Devices: Hearing Aid - Bilateral Review of Systems Review of Systems: All systems reviewed & are unremarkable except as noted in HPI & below Physical Exam Constitutional: WD/WN, vitals as above Eyes: PERRL, conjunctivae normal, anicteric sclerae Neck: trachea midline, no thyromegaly Respiratory: normal respiratory effort; no respiratory distress and no labored breathing Cardiovascular: Rate/Rhythm: regular rate and regular rhythm Gastrointestinal (Abdomen): Inspection/Auscultation: abdomen normal to inspection; abdomen not distended Percussion/Palpation: + abdomen tender ( Upper abdomen with deep palpation) and abdomen soft; no guarding and abdomen not rigid McBurney's incision scar Skin: no rashes, warm and dry Psychiatric: A+Ox3, euthymic affect Results & Data Vital Signs (Past 12 Hours) Vital Signs Temp Pulse Pulse Resp BP BP Pulse Ox 08/23/23 18:07 36.7 C 78 18 159/83 H 97 08/23/23 18:06 159/83 H 97 08/23/23 17:36 69 08/23/23 16:17 72 18 140/83 97 08/23/23 14:46 75 16 96 08/23/23 14:46 73 16 140/83 96 08/23/23 14:21 36.4 C L 78 20 160/92 H 95 O2 Del Method 08/23/23 18:07 Room Air 08/23/23 18:06 Room Air 08/23/23 17:36 08/23/23 16:17 08/23/23 14:46 Room Air 08/23/23 14:46 Room Air 08/23/23 14:21 Room Air Laboratory Results 08/23/23 Range/Units 14:40 WBC 13.70 H (4.8-10.8) K/ul RBC 4.60 (4.20-5.40) M/uL Hgb 14.3 (12.0-16.0) g/dl POC Hgb 14.6 (12.0-16.0) g/dl Hct 42.5 (37.0-47.0) % POC Hct 43 (37-47) % MCV 92.4 (80.0-100.0) fL MCH 31.1 (25.0-34.0) pg MCHC 33.6 (32.0-36.0) g/dL RDW Std Deviation 44.2 (36.4-46.3) fL RDW Coeff of Viraj 13.2 (11.5-14.5) % Plt Count 292 (130-400) K/uL MPV 10.5 (9.4-12.4) fL Immature Gran % (Auto) 0.5 % Neut % (Auto) 80.5 % Lymph % (Auto) 11.6 % [place] % (Auto) 6.9 % Eos % (Auto) 0.2 % Baso % (Auto) 0.3 % Neut # (Auto) 11.03 H (1.40-6.50) K/uL Lymph # (Auto) 1.59 (1.20-3.40) K/uL [place] # (Auto) 0.94 H (0.11-0.59) K/uL Eos # (Auto) 0.03 (0.00-0.50) K/uL Baso # (Auto) 0.04 (0.00-0.20) K/uL Immature Gran # (Auto) 0.07 (0.01-0.20) K/uL PT 11.1 (9.0-12.0) Seconds INR 1.0 (0.9-1.1) POC Sodium 133 L (135-144) mmol/L Sodium 133 L (136-145) mmol/L POC Potassium 3.4 (3.3-5.0) mmol/L Potassium 3.6 (3.5-5.1) mmol/L POC Chloride 96 L (101-112) mmol/L Chloride 97 L (98-107) mmol/L Carbon Dioxide 28 (21-32) mmol/L POC Total CO2 26 (24-31) mmol/L Anion Gap 8 (3-11) POC Anion Gap 14.0 L (16-25) mmol/L POC BUN 13 (7-18) mg/dl BUN 14 (6-23) mg/dl Creatinine 0.67 (0.6-1.2) mg/dl POC Creatinine 0.7 (0.6-1.3) mg/dl Est Cr Clr Drug Dosing 81.6 ml/min Est GFR ( Amer) 103.9 ml/min Est GFR (Non-Af Amer) 89.7 ml/min BUN/Creatinine Ratio 20.9 H (10-20) Glucose 117 H (70-99(Fasting)) mg/dl POC Glucose (other) 121 H (70-99) mg/dl Calcium 9.7 (8.6-10.3) mg/dl POC Ioniz Calcium Mikala 1.14 (1.12-1.32) mmol/l Total Bilirubin 0.9 (0.2-1.0) mg/dl AST 13 (13-39) U/L ALT 12 (7-52) U/L Alkaline Phosphatase 61 (34-104) U/L Troponin I High Sens 8.0 (0-14) pg/ml Total Protein 6.9 (6.0-8.3) gm/dl Albumin 4.1 (3.4-5.0) gm/dl Globulin 2.8 (2.5-4.0) gm/dl Albumin/Globulin Ratio 1.5 (0.9-2) Lipase 4 L (11-82) U/L Diagnostic Findings CT ANGIOGRAM OF THE ABDOMEN AND PELVIS CLINICAL HISTORY: Epigastric abdominal pain. COMPARISON STUDY: No priors. TECHNIQUE: Following the IV administration of 112 cc of Optiray 350, CT angiogra m of the abdomen and pelvis was performed from the lung bases the proximal femora. Images are reviewed in the axial, sagittal, and coronal planes. 3-D MIPS images are created and assessed. IV contrast was administered without complication. A dose lowering technique was utilized adhering to the principles of ALARA. FINDINGS: Lower chest: The heart is enlarged and without pericardial effusion. The coronary arteries are densely calcified. There are small pleural effusions, left larger than right noting bibasilar scarring/atelectasis. There is no airspace consolidation typical for pneumonia. Liver: The contrast-enhanced liver is normal in size, contour, and attenuation. There is no intrahepatic biliary ductal dilatation. The main portal veins appear patent. Gallbladder: Unremarkable. Spleen: Normal in size and attenuation noting heterogeneous arterial phase enhancement. Pancreas: Unremarkable. Adrenal glands: There is nonspecific thickening of the adrenal glands. Kidneys: The contrast enhanced kidneys are normal in size and without hydronephrosis. The kidneys enhance symmetrically. Abdominal aorta and iliac arteries: There is advanced atherosclerotic calcification and mild ectasia of the abdominal aorta. The abdominal aorta is patent. No dissection is seen. The iliac arteries are patent bilaterally noting advanced atherosclerotic plaque and irregularity. Major branches of the abdominal aorta: The celiac trunk, superior mesenteric, and inferior mesenteric arteries are widely patent. Hepatic arterial anatomy is conventional. The splenic artery is patent. Single bilateral renal arteries are widely patent. Bowel: There are hyperemic appearing loops of relatively decompressed small bowel in the left lower quadrant (best seen on axial image #482) with surrounding infiltration and trace interloop fluid. There are distended and fluid-filled loops of more proximal small bowel in the left midabdomen which measure up to 2.8 cm in diameter. There is an apparent focal twisting/transition point in the left midabdomen seen on axial image #371. The distal small bowel appears decompressed. There is no pneumatosis intestinalis or portal venous gas. There are scattered colonic diverticula without CT evidence of acute diverticulitis. Mild/moderate fecal retention is noted throughout the colon. A small duodenal diverticulum is noted. The appendix is not visualized. Peritoneum: There is no intraperitoneal free air or abdominal ascites. Lymphadenopathy: None. Pelvic viscera: The bladder, uterus, and adnexa are normal as visualized. There are bilateral adnexal surgical clips. A small volume of free fluid is seen in the cul-de-sac. Skeletal structures: The skeletal structures are osteopenic. There is mild to moderate lumbosacral spondylosis. No lytic or blastic bony lesions are seen. Advanced arthritic changes seen in the left hip. IMPRESSION: 1. Unremarkable CT angiogram of the abdominal aorta and its major branches. 2. There are decompressed loops of small bowel in the left mid to lower abdomen which appear hyperemic with surrounding mesenteric infiltration and fluid. The appearance is consistent with a nonspecific enteritis. 3. The proximal small bowel loops are distended, and there is an apparent focal transition point in the left mid abdomen. Although this may be related to an associated ileus, a developing small bowel obstruction is not excluded. The distal small bowel loops are decompressed. Clinical correlation will be essential. 4. No intraperitoneal free air is identified. There is no pneumatosis intestinalis or portal venous gas. 5. Cardiomegaly and small pleural effusions. 6. Additional findings as above.. ACT 112: Negative or not required by law. Electronically signed by: Jorje Hu M.D. 08/23/2023 3:39 PM
[2023-08-23] MEDS: D5W AND 1/2NSS + 20MEQ KCL 20 MEQ/1,000 ML BAG IV SCH (20:40)
[2023-08-23] MEDS: HYDROXYCHLOROQUINE SULFATE 200 MG TAB PO SCH (21:06)
[2023-08-23] MEDS: PANTOprazole 40 MG TAB PO SCH (21:06)
[2023-08-23] MEDS: METOPROLOL SUCC 25MG EXT REL TAB PO SCH (21:06)
[2023-08-23] MEDS: TEMAZEPAM 15 MG CAPSULE PO SCH (21:09)
[2023-08-23 21:57] LABS: Appearance Urine Clear (Clear); Bilirubin Urine Negative (Negative); Blood Urine Negative (Negative); Color Urine Yellow; Glucose Urine UA Negative (Negative); Ketones Urine Negative (Negative); Leukocyte Esterase Urine Negative (Negative); Nitrite Urine Negative (Negative); Protein Urine Negative (Negative); Specific Gravity Urine 1.025 (1.000-1.030); Urobilinogen Urine Negative (Negative); pH Urine 7.5 (4.5-7.5)
[2023-08-24 07:07] LABS: Hematocrit (blood only) 39.6 % (37.0-47.0); Hemoglobin 13.5 g/dl (12.0-16.0); Mean Corpuscular Hemoglobin 31.3 pg (25.0-34.0); Mean Corpuscular Hgb Conc 34.1 g/dL (32.0-36.0); Mean Corpuscular Volume 91.7 fL (80.0-100.0); Mean Platelet Volume 10.2 fL (9.4-12.4); Platelet Count 264 K/uL (130-400); RDW Coefficient of Variation 13.3 % (11.5-14.5); RDW Standard Deviation 45.1 fL (36.4-46.3); Red Blood Count 4.32 M/uL (4.20-5.40); White Blood Count 7.97 K/ul (4.8-10.8)
[2023-08-24 07:35] LABS: BUN Creatinine Ratio 15.2 (10-20); Calcium 8.9 mg/dl (8.6-10.3); Creatinine Clr Calc Pharmacy 84.2 ml/min; Est GFR (African American) 104.5 ml/min; Est GFR (Non-African American) 90.1 ml/min; Magnesium 1.9 mg/dl (1.7-2.4); Phosphorus 3.5 mg/dl (2.5-4.9); Potassium 3.6 mmol/L (3.5-5.1)
--- NOTE | 2023-08-24 07:52 | XRay Report ---
KUB CLINICAL HISTORY: r/o sbo COMPARISON STUDY: CTA of the abdomen and pelvis August 23, 2023. FINDINGS: Tubal ligation clips and contrast within the bladder are incidentally noted. The bowel gas pattern is normal. Amount of stool is within normal limits. IMPRESSION: No radiographic evidence for a bowel obstruction. ACT 112: Negative or not required by law. Electronically signed by: Claudio Sterling M.D. 08/24/2023 7:50 AM
[2023-08-24] MEDS: predniSONE 5 MG TAB PO SCH (08:04)
[2023-08-24] MEDS: ASPIRIN 325 MG ECTAB PO SCH (08:04)
[2023-08-24] MEDS: LOSARTAN POTASSIUM 25 MG TAB PO SCH (08:04)
[2023-08-24] MEDS: hydroCHLOROthiazide 25 MG TAB PO SCH (08:04)
[2023-08-24] MEDS: FLUTICASONE/VILANTEROL 100/25MCG 14 PUFFS/INHALER INH SCH (08:04)
[2023-08-24] MEDS: FOLIC ACID 1 MG TAB PO SCH (08:05)
--- OUTSIDE RECORDS SUMMARY | 2023-08-24 08:30 | External Medical Summary | Summary of Care ---
Author Name Unknown Organization [facility] Address [address] [facility] [place] [address] Phone [phone] Care Team Providers Care Web Site Administrator Name Role Phone Ellis Matos MD Primary Care Provider [phone] Reason for Visit * Reason Onset Date Comments Appointment 08/07/2023 Pre Cert Number 08/07/2023 Encounter Details Date Type Department Care Team (Late st Contact Info) Description 08/07/2023 Telephone Rheumatology [facility], David Oliveira [address] [place] [address] [place] [address] Jeny Thompson, [facility] [address] [place] [address] Appointment; Pre Cert Number Allergies Active Allergy Reactions Criticality Noted Date Comments Leflunomide Rash 07/08/2014 Sulfa Antibiotics Rash 01/25/2011 documented as of this encounter (statuses as of 08/13/2023) Medications Medication Sig Dispensed Refills Start Date End Date Status CALTRATE 600+D 600-400 MG-UNIT PO TABS 1 daily 0 Active ASPIRIN 325 MG PO TABS 1 daily 0 Active MULTIVITAMINS PO TABS 1 daily 0 Active albuterol-ipratropiu m (DUONEB) 2.5-0.5 MG/3ML nebulizer solution As needed 0 10/16/2016 Active Cholecalciferol (VITAMIN D) 125 MCG (5000 UT) CAPS Take by mouth. 0 Active Triamcinolone Acetonide 0.1 % External Cream (Aristocort) Apply topically to affected area 2 times a day. Apply to rash on arms and legs 80 g 2 08/02/2020 Active Ventolin HFA 108 (90 Base) MCG/ACT Inhalation Aerosol Solution Inhale by mouth 2 Puffs every 4 hours as needed for Wheezing. 18 g 1 10/13/2021 Active valACYclovir HCl 1 GM Oral Tablet (Valtrex) Take 1 Tablet by mouth in the morning. 30 Tablet 5 11/27/2022 Active Alendronate Sodium 70 MG Oral Tablet (Fosamax) Take 1 Tablet by mouth once a week. 12 Tablet 2 12/05/2022 Active predniSONE 5 MG Oral Tablet (Deltasone)Indicatio ns:Rheumatoid arthritis involving multiple sites with positive rheumatoid factor (HCC) take 1-2 tablets by mouth every morning if needed 100 Tablet 2 12/19/2022 Active Pravastatin Sodium 20 MG Oral Tablet (Pravachol)Indicatio ns:History of CVA (cerebrovascular accident) Take 1 Tablet by mouth in the morning. 90 Tablet 0 01/09/2023 Active Omeprazole 20 MG Oral Capsule Delayed Release (PriLOSEC) take 1 capsule by mouth every morning AND 1 CAPSULE BEFORE BEDTIME 180 Capsule 3 01/18/2023 Active Albuterol Sulfate 0.63 MG/3ML Inhalation Nebulization Solution (Accuneb) Inhale 1 Vial via nebulizer every 4 hours as needed for Wheezing. 300 mL 1 02/13/2023 Active Temazepam 30 MG Oral Capsule (Restoril) Take 1 Capsule by mouth at bedtime as needed for Sleep. 30 Capsule 3 04/24/2023 Active Hydroxychloroquine Sulfate 200 MG Oral Tablet (Plaquenil)Indicatio ns:Rheumatoid arthritis involving multiple sites with positive rheumatoid factor (HCC) take 1 tablet by mouth at bedtime 90 Tablet 3 04/26/2023 Active Metoprolol Succinate ER 25 MG Oral Tablet Extended Release 24 Hour (toPROL XL)Indications:HTN, goal below 130/80 take 1 tablet by mouth once daily 90 Tablet 2 04/24/2023 Active Folic Acid 1 MG Oral Tablet take 1 tablet by mouth once daily 90 Tablet 3 05/16/2023 Active Breo Ellipta 100-25 MCG/ACT Inhalation Aerosol Powder Breath Activated inhale 1 puff by mouth and INTO THE LUNGS once daily - RINSE MOUTH WELL AFTER USE 0 04/02/2023 Active Benzonatate 100 MG Oral Capsule (Tessalon Perlzac) take 1 capsule by mouth three times a day if needed 0 03/12/2023 Active Methotrexate 2.5 MG Oral TabletIndications:Rh eumatoid arthritis involving multiple sites with positive rheumatoid factor (HCC) Take 8 Tablets by mouth once a week. 32 Tablet 5 07/19/2023 Active HYDROcodone-Acetamin ophen 5-325 MG Oral TabletIndications:Rh eumatoid arthritis involving multiple sites with positive rheumatoid factor (HCC) Take 1 Tablet by mouth every 6 hours as needed for Pain, Moderate. For ongoing therapy. May fill 07/19/23 or later 120 Tablet 0 07/19/2023 Active documented as of this encounter (statuses as of 08/13/2023) Active Problems Problem Noted Date Diagnosed Date Hx of nonmelanoma skin cancer 06/13/2023 Overview: basal cell carcinoma (mid forehead 12/22, L caodaism hairline 12/22) S/P total knee arthroplasty, left 12/10/2022 Obesity, Class II, BMI 35-39.9, isolated (see ac tual BMI) 12/01/2021 Reactive airway disease without complication 09/2021 Gastroesophageal reflux disease with esophagitis 05/22/2019 History of CVA (cerebrovascular accident) 2018 Dyslipidemia 11/24/2018 Primary insomnia 11/24/2018 Long-term use of immunosuppressant medication Vasculopathy 08/29/2017 Overview: Palmar side of fingers - rheumatology treating with trental Rheumatoid arthritis involvi ng multiple sites with positive rheumatoid factor 01/20/2016 HTN, goal below 130/80 MEDICATION USE AGREEMENT documented as of this encounter (statuses as of 08/13/2023) Resolved Problems Problem Noted Date Diagnosed Date Resolved Date History of 2019 novel mcgowan virus disease (COVID-19) 08/02/2021 12/01/2021 Primary osteoarthritis of both knees 11/30/2020 12/25/2022 Primary osteoarthritis of left knee 12/13/2017 11/30/2020 Preoperative general physical examination 09/17/2016 12/25/2022 Encounter for long-term (cur rent) use of medications 08/11/2012 11/24/2018 Overview: ICD-10 update of inactive term ARTHRITIS,RHEUMATOID 016 documented as of this encounter (statuses as of 08/13/2023) Immunizations Name Administration Dates Next Due COVID-19 mRNA, LNP-s, No Pre serve, 2-Dose Series (Moderna) 02/06/2021,07/29/2020,07/01/2020 COVID-19, mRNA, LNP-s, PF, B ooster, 100mcg/0.5mg (Moderna) 08/22/2021 PPD 08/01/2009 Pneumococcal Conjugate Vacc, 13 Valent (Prevnar) 05/22/2019 Pneumococcal Polysaccharide PPV23 (Pneumovax) 04/04/2018,09/17/2016,07/18/2010 Season Influenza, Quad, PF, Adjuvanted, 65+ Yrs, IM (FLUAD) 04/17/2023,02/17/2020 Seasonal Influenza Virus Vac cine, Unspecified Formulation 06/06/2021,02/17/2020,05/22/2019,05/12,03/27/2017,03/09/2015 Seasonal Influenza, PF, 6 M & above, IM , (FluLaval or Fluzone) 05/22/2019 Seasonal Influenza, QUAD, wi th Preserv, 6 mons & Above, 0.5 mL, IM 05/12/2018 Seasonal Influenza, Quadriva lent Hd (Fluzone Hd) 06/06/2021 Seasonal Influenza, Split, I IV3, With Preserve, Inj 03/27/2017,03/09/2015,04/07/2014,03/09,04/23/2012,05/03/2011 TD - Tetanus/Diptheria (ADULT) 03/02/2013 documented as of this encounter Social History Tobacco Use Types Packs/Day Years Used Date Smoking Tobacco: Former Cigarettes Q uit: 12/01/1998 Smokeless Tobacco: Never Alcohol Use Standard Drinks/Week Comments Yes 0 (1 standard drink = 0.6 oz pur e alcohol) rarely PHQ-2 Answer Date Recorded PHQ-2 Score 0 02/17/2020 Hunger Vital Sign Answer Date Recorded Within the past 12 months, y ou worried that your food would run out before you got the money to buy more. Never true 11/16/19 23 Within the past 12 months, t he food you bought just didn't last and you didn't have money to get more. Never true 11/15/2022 Sex and Gender Information Value Date Recorded Sex Assigned at Female 05/31/2020 3:31 PM EST Gender Identity Female 05/31/2020 3:31 PM EST Sexual Orientation Straight 05/31/2020 3: 31 PM EST Job Start Date Occupation Industry Not on file Not on file Not on file documented as of this encounter Functional Status Functional Status Response Date of Assess ment Are you deaf or do you have serious difficulty h earing? No 12/10/2022 Are you blind or do you have serious difficulty seeing, even when wearing glasses? No 12/10/2022 Do you have serious difficul ty walking or climbing stairs? (5 years old or older) No 12/10/2022 Do you have difficulty dress ing or bathing? (5 years old or older) No 12/10/2022 Because of a physical, menta l, or emotional condition, do you have difficulty doing errands alone such as visiting a doctor s office or shopping? (15 years old or older) No 12/11/19 Cognitive Status Response Date of Assessm ent Because of a physical, menta l, or emotional condition, do you have serious difficulty concentrating, remembering, or making decisions? (5 years old or older) No 12/10/2022 documented as of this encounter Miscellaneous Notes * Telephone Encounter - Ashely Garcia CPhT - 08/13/2023 7:52 AM EDT Patient Phone Numbers Spoke with patient to schedule MTDM appointment for Medication Management. Appointment scheduled asnoted below. 08/12/23 Thank you, Ashely hCau CPhT [employer] III [facility] ([facility] (Formerly Telepharm[facility]) 08/13/2023,7:52 AM * Telephone Encounter - Jeny Thompson RP - 08/07/2023 10:08 AM EST LMOM for non qual Rheumatology Pharmacist Appointment Request Department & Provider: Rheumatology [facility] [[id number]] - Pharmacist Rheumatology [facility] [[id number]] Patient to be scheduled for visit type: Telephonic Medicine Visit [[id number]] Length of visit: 30 min Reason for visit: Medication Co-management nonqual Time Frame: within 2 weeks Request routed to [facility] Specialty Scheduling Pool ([id number]) Please route this encounter back to Rheum Pharmacist Refill Pool/Class [p [phone]] if unable to schedule patient after 3 attempts. documented in this encounter Plan of Treatment Upcoming Encounters Date Type Department Care Team (Late st Contact Info) Description 11/04/2023 3:40 PM EDT Office Visit Rheumatology [place] [id number] [place] [address] Josh Sierra MD [facility] [place] [address] 12/12/2023 10:00 AM EDT Office Visit Orthopaedics [facility] [address] [place] [address] Mirza Chapman, [address] [place] [address] 07/30/2024 10:20 AM EST Office Visit [address] [place] [address] Diana Olivares PA-C [address] [place] [address] [place] [address] Scheduled Procedures Name Priority Associated Diagnoses Date/Ti me COLONOSCOPY FLEXIBLE PROXIMAL DIAGNOSTIC Recall History of colon polyps Health Maintenance Due Date Last Done Comments Zoster Vaccines (1 of 2) 1972 DTaP,Tdap,and Td Vaccines (1 - Tdap) 03/03/2013 03/02/2013 Depression Screening 02/16/2021 02/17/2020 COVID-19 Vaccine (5 - 2022- season) 2023 08/22/2021, 02/06/2021, 07/29/2020, Additional history exists Pneumococcal Vaccine: 65+ Years (4 of 4 - PPSV23 or PCV20) 04/04/2023 05/22/2019, 04/04/2018, 09/17/2016, Additional history exists COLONOSCOPY-EVERY 5 YRS AGES 18-100 03/03/2024 03/03/2019, 03/03/2019 GFR 06/28/2024 06/28/2023, 05/03, 01/31/2023, Additional history exists Albumin/Creatinine Ratio 07/13/2024 07/13/2021 Mammogram 07/29/2024 07/29/2023, 07/05, 03/01/2020, Additional history exists Diabetes Screening 06/28/2026 06/28/2023, 1 07/17/2022, 01/31/2023, Additional history exists Lipid Panel 05/13/2028 05/13/2023, 01/03, 12/05/2021, Additional history exists DXA Scan 04/16/2029 04/16/2022, 04/03, 02/07/2016, Additional history exists Influenza Vaccine (FLU shot) Completed , 06/06/2021, 06/06/2021, Additional history exists GARDASIL-HPV IMMUNIZATION SERIES Aged Out No longer eligible based on patient's age to complete this topic Hepatitis B Aged Out No longer eligi ble based on patient's age to complete this topic MENINGOCOCCAL (MENACTRA/MENVEO) Aged Out No longer eligible based on patient's age to complete this topic documented as of this encounter Medical Devices Implanted Type Area Pcb Design Engineer Device Identifier Shelf Expiration Date Model / Serial / Lot Knee Triathlon Bead No Amol L 3 - [id number] Implanted:Qty: 1 on 12/10/2022 by Mirza Chapman DO at OR [facility] Left: Knee KATIE : ORTHOPAEDICS 08/02/2027 5517-[id number] / / [id number] Baseplate #3 Tritanium - [id number] Implanted:Qty: 1 on 12/10/2022 by Mirza Chapman, DO at OR [facility] Left: Knee KATIE : ORTHOPAEDICS 09/04/2027 5536-[id number] / / [id number] Knee X3 Ins Pos Cs Sz3 11 - [id number] Implanted:Qty: 1 on 12/10/2022 by Mirza Chapman, DO at OR [facility] Left: Knee KATIE : ORTHOPAEDICS 08/26/2027 [id number] / / [id number] documented as of this encounter Advance Directives Documents on File Type Date Recorded 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 Question Answer Comments Discussion of Advance Directives occurred with: Patient Care Teams Web Site Administrator Relationship Specialty Start Date End Date Ellis Matos MD [address] [place] [address] PCP - General Family Medicine 11/24/18 documented as of this encounter
--- OUTSIDE RECORDS SUMMARY | 2023-08-24 08:30 | External Medical Summary | Summary of Care ---
Author Name Unknown Organization [facility] Address [address] [place] [address] Phone [phone] Care Team Providers Care Scientific Aide Name Role Phone Ellis Matos MD Primary Care Provider [phone] Reason for Visit * Reason Comments Rheum Follow Up Dosage Adjustment Via Phone (anticoag Cl inic) Encounter Details Date Type Department Care Team (Late st Contact Info) Description 08/12/2023 12:00 PM EDT [facility] [address], [place] [id number] Agc5, Pharmacist Rheumatology [address] [place] [address] Rheumatoid arthritis involving multiple sites with positive rheumatoid factor (HCC)* Allergies Active Allergy Reactions Criticality Noted Date Comments Leflunomide Rash 07/08/2014 Sulfa Antibiotics Rash 01/25/2011 documented as of this encounter (statuses as of 08/12/2023) Medications Medication Sig Dispensed Refills Start Date End Date Status CALTRATE 600+D 600-400 MG-UNIT PO TABS 1 daily 0 Active ASPIRIN 325 MG PO TABS 1 daily 0 Active MULTIVITAMINS PO TABS 1 daily 0 Active albuterol-ipratrop ium (DUONEB) 2.5-0.5 MG/3ML nebulizer solution As needed 0 10/16/2016 Active Cholecalciferol (VITAMIN D) 125 MCG (5000 UT) CAPS Take by mouth. 0 Ac tive Triamcinolone Acetonide 0.1 % External Cream (Aristocort) [...] 12/05/2022 Active predniSONE 5 MG Oral Tablet (Deltasone)Indicat ions:Rheumatoid arthritis involving multiple sites with positive rheumatoid factor (HCC) take 1-2 tablets by mouth every morning if needed 100 Tablet 2 12/19/2022 Active Pravastatin Sodium 20 MG Oral Tablet (Pravachol)Indicat ions:History of CVA (cerebrovascular accident) Take 1 Tablet [...] Active Hydroxychloroquine Sulfate 200 MG Oral Tablet (Plaquenil)Indicat ions:Rheumatoid arthritis involving multiple sites with positive rheumatoid factor (HCC) take 1 tablet by mouth at bedtime 90 Tablet 3 04/26/2023 Active Metoprolol Succinate ER 25 MG Oral Tablet Extended Release 24 Hour (toPROL XL)Indications:HTN , goal below 130/80 take 1 tablet by [...] Active Benzonatate 100 MG Oral Capsule (Tessalon Perles) take 1 capsule by mouth three times a day if needed 0 03/12/2023 Active Methotrexate 2.5 MG Oral TabletIndications: Rheumatoid arthritis involving multiple sites with positive rheumatoid factor (HCC) Take 8 Tablets by mouth once a week. 32 Tablet 5 07/19/2023 Active HYDROcodone-Acetam inophen 5-325 MG Oral TabletIndications: Rheumatoid arthritis involving multiple sites with positive rheumatoid factor (HCC) Take 1 Tablet by mouth every 6 hours as needed for Pain, Moderate. For ongoing therapy. May fill 07/19/23 or later 120 Tablet 0 07/19/2023 Active Losartan Potassium 25 MG Oral Tablet (Cozaar)Indication s:HTN, goal below 130/80 take 1 tablet by mouth every morning 90 Tablet 1 08/07/2023 Active hydroCHLOROthiazid e 25 MG Oral Tablet (Hydrodiuril)Indic ations:HTN, goal below 130/80 take 1 tablet by mouth every morning 90 Tablet 3 08/10/2023 Active Orencia 125 MG/ML Subcutaneous Solution Prefilled Syringe (Abatacept)Indicat ions:Rheumatoid arthritis involving multiple sites with positive rheumatoid factor (HCC) Inject 125 mg under the skin once a week. 4 mL 11 08/12/2023 Active Orencia 125 MG/ML Subcutaneous Solution Prefilled Syringe (Abatacept)Indicat ions:Rheumatoid arthritis involving multiple sites with positive rheumatoid factor (HCC) Inject 125 mg (1 pen) under the skin once a week. 4 mL 11 05/21/2023 4 Discontinue d(Refill) documented as of this encounter (statuses as of 08/12/2023) Active Problems Problem Noted Date Diagnosed Date Hx of nonmelanoma skin cancer 06/13/2023 Overview: basal cell carcinoma (mid forehead 12/22, L yarsani hairline 12/22) S/P total knee arthroplasty, left [...] as of this encounter (statuses as of 08/12/2023) Resolved Problems Problem Noted Date Diagnosed Date Resolved Date History of 2018 novel mcgowan virus disease (COVID-19) 08/02/2021 12/01/2021 Primary osteoarthritis of both knees 11/30/2020 12/25/2022 Primary osteoarthritis of left knee 12/13/2017 11/30/2020 Preoperative general physical examination 09/17/2016 12/25/2022 Encounter for long-term (cur rent) use of medications 08/11/2012 11/24/2018 Overview: ICD-10 update of inactive term ARTHRITIS,RHEUMATOID 016 documented as of this encounter (statuses as of 08/12/2023) Immunizations Name Administration Dates Next Due COVID-19 [...] money to buy more. Never true 11/16/19 Within the past 12 months, t he [...] No 12/10/2022 documented as of this encounter Progress Notes * Mary Alvarez, [facility] - 08/12/2023 1:54 PM EDT After connecting to the patient via telephone, the patient was identified by name and date of . Patient was then informed that this was a telephone call only visit. The patient agreed to participate. Visit Disposition: Routine follow-up Total call duration was 10 minutes. Clinical Pharmacy Service (Rheumatology): Medication Management PHYSICIAN ACTION NEEDED: No action needed PROTOCOL IN PLACE Visit: status check ASSESSMENT (M05.79) Rheumatoid arthritis involving multiple sites with positive rheumatoid factor (HCC) (primary encounter diagnosis) Patient is on the following medication(s): Orencia 125mg once weekly - patient reports taking this once every 10 days MTX 2.5mg - 8 tablets once weekly FA 1mg - one tablet daily except for day of MTX Hydroxychloroquine 200mg - one tablet daily Prednisone 5mg - one tablet daily Hydrocodone/acetaminophen 5-325mg - one tablet every 6 hours as needed for pain - patient reports usually taking 1 tablet daily Patient reports cold weather and rain have been aggravating factors lately. Otherwise, reports no changes since last appointment with . PLAN OF ACTION Medication Regimen: CONTINUE as follows: Orencia 125mg every 10 days MTX 2.5mg - 8 tablets once weekly FA 1mg - one tablet daily except for day of MTX Hydroxychloroquine 200mg - one tablet daily Prednisone 5mg - one tablet daily Hydrocodone/acetaminophen 5-325mg - one tablet every 6 hours as needed for pain Follow-Up Appointment(s): Pharmacist: no follow-up necessary Physician: 11/04/2023 with Lore A Forsht is a 67 year old year old female presently on a medication regimen of Orencia, MTX/FA, hydroxychloroquine, prednisone, hydrocodone/acetaminophen. CURRENT MEDICATION REGIMEN Patient has been on this medication for over a year Patient account of regimen effectiveness: improvement in condition/symptoms Patient reports side effects while being on medication: no Chronic use of prednisone or NSAIDS: yes DISEASE ACTIVITY ASSESSMENT Morning stiffness lasting more than 30 minutes in the morning: no Symptoms improve throughout the day: yes Any flares in the past month?: no Infections: yes , had a cold and was on a z pack, finished this about 3 weeks ago and feels much better Swelling: yes - in the hands, comes and goes LABORATORY VALUES Lab Results Component Value Date/Time WBC 7.94 06/28/2023 10:11 AM WBC 11.10 (H) 05/16/2023 10:19 AM WBC 11.75 (H) 01/31/2023 10:54 AM WBC 9.44 05/31/2020 03:59 PM WBC 10.67 03/01/2020 01:26 PM WBC 16.94 (H) 11/10/2019 03:34 PM Lab Results Component Value Date/Time HGB 13.6 06/28/2023 10:11 AM HGB 13.0 05/16/2023 10:19 AM HGB 13.6 01/31/2023 10:54 AM HGB 13.5 05/31/2020 03:59 PM HGB 13.8 03/01/2020 01:26 PM HGB 14.5 11/10/2019 03:34 PM Lab Results Component Value Date/Time HCT 41.6 06/28/2023 10:11 AM HCT 39.3 05/16/2023 10:19 AM HCT 41.7 01/31/2023 10:54 AM HCT 42.2 05/31/2020 03:59 PM HCT 41.5 03/01/2020 01:26 PM HCT 43.1 11/10/2019 03:34 PM Lab Results Component Value Date/Time PLT 257 06/28/2023 10:11 AM PLT 295 05/16/2023 10:19 AM PLT 288 01/31/2023 10:54 AM PLT 249 05/31/2020 03:59 PM PLT 253 03/01/2020 01:26 PM PLT 290 11/10/2019 03:34 PM Lab Results Component Value Date/Time CREATININE - [facility] 0.8 06/28/2023 10:11 AM CREATININE - [facility] 0.7 05/16/2023 10:19 AM CREATININE - [facility] 0.7 01/31/2023 10:54 AM CREATININE - [facility] 1.0 05/31/2020 03:59 PM CREATININE - [facility] 0.8 03/01/2020 01:26 PM CREATININE - [facility] 0.9 11/10/2019 03:34 PM CREATININE SIXTO 56 07/30/2019 10:17 AM CREATININE SIXTO 104 02/27/2018 11:32 AM CREATININE SIXTO 50 01/15/2017 10:30 AM CREATININE SIXTO - [facility] 115 05/16/2023 10:24 AM CREATININE SIXTO - [facility] 22 08/02/2021 12:57 PM CREATININE SIXTO - [facility] 52 08/02/2020 11:44 AM CREATININE, RANDOM URINE - [facility] 33 07/13/2021 11:09 AM Lab Results Component Value Date/Time BUN - [facility] 14 06/28/2023 10:11 AM BUN - [facility] 10 05/16/2023 10:19 AM BUN - [facility] 13 01/31/2023 10:54 AM BUN - [facility] 13 05/31/2020 03:59 PM BUN - [facility] 10 03/01/2020 01:26 PM BUN - [facility] 19 11/10/2019 03:34 PM Lab Results Component Value Date/Time AST - [facility] 16 06/28/2023 10:11 AM AST - [facility] 17 05/16/2023 10:19 AM AST - [facility] 17 01/31/2023 10:54 AM AST - [facility] 18 05/31/2020 03:59 PM AST - [facility] 16 03/01/2020 01:26 PM AST - [facility] 16 11/10/2019 03:34 PM Lab Results Component Value Date/Time ALT - [facility] 16 06/28/2023 10:11 AM ALT - [facility] 18 05/16/2023 10:19 AM ALT - [facility] 17 01/31/2023 10:54 AM ALT - [facility] 24 05/31/2020 03:59 PM ALT - [facility] 14 03/01/2020 01:26 PM ALT - [facility] 12 11/10/2019 03:34 PM Lab Results Component Value Date/Time LDL (CALCULATED)-OUTSIDE LAB 106 (A) 04/18/2017 12:00 AM LDL CHOLESTEROL (CALCULATED) - [facility] 119 05/13/2023 11:39 AM LDL CHOLESTEROL (CALCULATED) - [facility] 133 (H) 01/31/2023 10:54 AM LDL CHOLESTEROL (CALCULATED) - [facility] 122 12/05/2021 12:12 PM LDL CHOLESTEROL (CALCULATED) - [facility] 148 (H) 11/10/2019 03:32 PM LDL CHOLESTEROL (CALCULATED) - [facility] 132 (H) 01/01/2019 11:41 AM LDL CHOLESTEROL (DIRECT MEASURE) - [facility] NOT APPLICABLE 11/10/2019 03:32 PM Mary Alvarez RPh [facility] Clinical Pharmacist Rheumatology Department 08/12/2023,1:54 PM documented in this encounter Plan of Treatment Upcoming Encounters Date Type Department Care Team (Late st Contact Info) Description 11/04/2023 3:40 PM EDT Office Visit Rheumatology [address] [place] [address] Josh Sierra MD [address] [place] [address] [place] [address] 12/12/2023 10:00 AM EDT Office Visit Orthopaedics [facility] [address] [place] [address] Mirza Chapman DO [address] [place] [address] 07/30/2024 10:20 AM EST [address] [address] Diana Olivares, PAJv [address] [place] [address] [place] [phone] Scheduled Procedures Name Priority Associated Diagnoses Date/Ti [...] Additional history exists Lipid Panel 05/13/2028 05/13/2023, 08/06/2022, 12/05/2021, Additional history exists DXA Scan 04/16/2029 [...] this encounter Medical Devices Implanted Type Area Motor Assembly Supervisor Device Identifier Shelf Expiration Date Model / Serial / Lot Knee Triathlon Bead No Amol L 3 - [id number] Implanted:Qty: 1 on 12/10/2022 by Mirza Chapman DO at OR [facility] Left: Knee KATIE : ORTHOPAEDICS 08/02/2027 5517-F-301 / / [id number] Baseplate #3 Tritanium - [id number] Implanted:Qty: 1 on 12/10/2022 by Mirza Chapman DO at OR [facility] Left: Knee KATIE : ORTHOPAEDICS 09/04/2027 5536-B-300 / / [id number] Knee X3 Ins Pos Cs Sz3 11 - [id number] Implanted:Qty: 1 on 12/10/2022 by Mirza Chapman DO at OR [facility] Left: Knee KATIE : ORTHOPAEDICS 08/26/2027 5531-G-311 -[id number] / / [id number] documented as of this encounter Visit Diagnoses Diagnosis Rheumatoid arthritis involving multiple sites with positive rheumatoid factor (HCC)- Primary documented in this encounter Advance Directives Documents on File Type Date Recorded 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 Question Answer Comments Discussion of Advance Directives occurred with: Patient Care Teams Scientific Aide Relationship Specialty Start Date End Date Ellis Matos MD [address] [place] [address] PCP - General Family Medicine 11/24/18 documented as of this encounter
--- OUTSIDE RECORDS SUMMARY | 2023-08-24 08:30 | External Medical Summary | Summary of Care ---
Author Name Unknown Organization [facility] Address [address] [facility] [place] [address] Phone [phone] Care Team Providers Care Staff Analyst Name Role Phone Gael Matos MD Primary Care Provider [phone] Reason for Visit * Reason Comments eRx-Medication Refill Encounter Details Date Type Department Care Team (Late st Contact Info) Description 08/17/2023 Refill Family [facility] [address] [place] [address] Gael Matos MD [address] [place] [address] HTN, goal below 130/80 Allergies Active Allergy Reactions Criticality Noted Date Comments Leflunomide Rash 07/08/2014 Sulfa Antibiotics Rash 01/25/2011 documented as of this encounter (statuses as of 08/19/2023) Medications Medication Sig Dispensed Refills Start Date [...] the morning. 30 Tablet 5 11/27/2022 Active predniSONE 5 MG Oral Tablet (Deltasone)Indicatio [...] Active Losartan Potassium 25 MG Oral Tablet (Cozaar)Indications: HTN, goal below 130/80 take 1 tablet by mouth every morning 90 Tablet 1 08/07/2023 Active hydroCHLOROthiazide 25 MG Oral Tablet (Hydrodiuril)Indicat ions:HTN, goal below 130/80 take 1 tablet by mouth every morning 90 Tablet 3 08/10/2023 Active Alendronate Sodium 70 MG Oral Tablet (Fosamax) Take 1 Tablet by mouth once a week. 12 Tablet 1 08/14/2023 Active Orencia 125 MG/ML Subcutaneous Solution Prefilled Syringe (Abatacept)Indicatio ns:Rheumatoid arthritis involving multiple sites with positive rheumatoid factor (HCC) Inject 125 mg (1 syringe) under the skin once a week. 4 mL 11 08/12/2023 Active documented as of this encounter (statuses as of 08/19/2023) Active Problems Problem Noted Date Diagnosed Date Hx of nonmelanoma skin cancer 06/13/2023 Overview: basal cell carcinoma (mid forehead 12/22, L christian hairline 12/22) S/P total knee arthroplasty, left [...] as of this encounter (statuses as of 08/19/2023) Resolved Problems Problem Noted Date Diagnosed Date [...] as of this encounter (statuses as of 08/19/2023) Immunizations Name Administration Dates Next Due COVID-19 [...] encounter Miscellaneous Notes * Telephone Encounter - Gael Zuluaga [facility] - 08/19/2023 12:38 PM EDT Refused Prescriptions: Disp Refills Losartan Potassium 25 MG Oral Tablet (Coza*90 Tab*1 Sig: take 1tablet by mouth every morningRefused By: GAEL ZULUAGA for Refusal: Duplicate Request--- documented in this encounter Plan of Treatment Upcoming Encounters Date Type Department Care Team (Late st Contact Info) Description 11/04/2023 3:40 PM EDT Office [address] [place] [address] Josh Sierra MD [address] [place] [address] [place] [address] 12/12/2023 10:00 AM EDT Office Visit Orthopaedics [facility] [address] [place] [address] Mirza Chapman, [address] [place] [address] 07/30/2024 10:20 AM EST Office Visit Dermatology[address], [place] [phone] Diana Olivares, PA-C [address] [place] [address] [place] [phone] Scheduled Procedures Name Priority Associated Diagnoses Date/Ti me COLONOSCOPY FLEXIBLE PROXIMAL DIAGNOSTIC Recall History of colon polyps Health Maintenance Due Date Last Done Comments Zoster Vaccines (1 of 2) 1972 DTaP,Tdap,and Td Vaccines (1 - Tdap) 03/03/2013 03/02/2013 Depression Screening 02/16/2021 02/17/2020 COVID-19 Vaccine (5 - 2022-24 season) 2023 08/22/2021, 02/06/2021, 07/29/2020, Additional history [...] this encounter Medical Devices Implanted Type Area Production Clerk Device Identifier Shelf Expiration Date Model / Serial / Lot Knee Triathlon Bead No Amol L 3 - [id number] Implanted:Qty: 1 on 12/10/2022 by Mirza Chapman, DO at OR [facility] Left: Knee KATIE : ORTHOPAEDICS 08/02/2027 5517-F-301 / / [id number] Baseplate #3 Tritanium - [id number] Implanted:Qty: 1 on 12/10/2022 by Mirza Chapman, DO at OR [facility] Left: Knee KATIE : ORTHOPAEDICS 09/04/2027 5536-B-300 / / [id number] Knee X3 Ins Pos Cs Sz3 11 - [id number] Implanted:Qty: 1 on 12/10/2022 by Mirza Chapman, at OR [facility] Left: Knee KATIE : ORTHOPAEDICS 08/26/2027 5531-G-311 -[id number] / / [id number] documented as of this encounter Visit Diagnoses Diagnosis HTN, goal below 130/80 Unspecified essential hypertension documented in this encounter Advance Directives Documents on File Type Date Recorded Patient Supervisor Telephone Answering Service 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 Question Answer Comments Discussion of Advance Directives occurred with: Patient Care Teams Staff Analyst Relationship Specialty Start Date End Date Gael Matos MD [address] [place] [address] PCP - General Family Medicine 11/24/18 documented as of this encounter
--- OUTSIDE RECORDS SUMMARY | 2023-08-24 08:30 | External Medical Summary | Summary of Care ---
Author Name Unknown Organization [facility] Address [address] [facility] [facility] [address] Phone [phone] Care Team Providers Care Lidder Name Role Phone Ellis Matos MD Primary Care Provider [phone] Reason for Visit * Reason Onset Date Comments Medication Refill 08/09/2023 Encounter Details Date Type Department Care Team (Late st Contact Info) Description 08/09/2023 Refill Rheumatology [place] [address] [facility] [place] [address] Bradford Briseno MD [facility] [place] [address] Encounter for long-term (current) use of medications* Allergies Active Allergy Reactions Criticality Noted Date Comments Leflunomide Rash 07/08/2014 Sulfa Antibiotics Rash 01/25/2011 documented as of this encounter (statuses as of 08/14/2023) Medications Medication Sig Dispensed Refills Start Date [...] 11/27/2022 Active predniSONE 5 MG Oral Tablet (Deltasone)Indicat [...] a week. 12 Tablet 1 08/14/2023 Active Alendronate Sodium 70 MG Oral Tablet (Fosamax) Take 1 Tablet by mouth once a week. 12 Tablet 2 12/05/2022 4 Discontinue d(Refill) Orencia 125 MG/ML Subcutaneous Solution Prefilled Syringe (Abatacept)Indicat ions:Rheumatoid arthritis involving multiple sites with positive rheumatoid factor (HCC) Inject 125 mg (1 pen) under the skin once a week. 4 mL 11 05/21/2023 4 Discontinue d(Refill) documented as of this encounter (statuses as of 08/14/2023) Active Problems Problem Noted Date Diagnosed Date Hx of nonmelanoma skin cancer 06/13/2023 Overview: basal cell carcinoma (mid forehead 12/22, L pentecostal hairline 12/22) S/P total knee arthroplasty, left [...] as of this encounter (statuses as of 08/14/2023) Resolved Problems Problem Noted Date Diagnosed Date [...] as of this encounter (statuses as of 08/14/2023) Immunizations Name Administration Dates Next Due COVID-19 [...] encounter Miscellaneous Notes * Telephone Encounter - Isacc Nova, [facility] - 08/14/2023 1:08 PM EDTSigned Prescriptions: Disp Refills Alendronate Sodium 70 MG Oral Tablet (Fosa*12 Tab*1 Sig: Take 1 Tablet by mouth once a week.Authorizing Provider: BRADFORD BRISENO User: ISACC NOVA E * Telephone Encounter - Isacc Nova [facility] - 08/14/2023 1:01 PM EDT Rheumatology: Refill Request(s) Per review of the refill parameters, Medication was refilled Vitamin D lab ordered to be completed with next routine labs. Isacc Nova [facility] Clinical Pharmacist Rheumatology Department 08/14/2023,1:01 PM * Telephone Encounter - Thiago Winters - 08/10/2023 8:22 AM ESTPending Prescriptions: Disp Refills Alendronate Sodium 70 MG Oral Tablet (Fosa*12 Tab*2 Sig: Take 1 Tablet by mouth once a week. * Telephone Encounter - Thiago Winters - 08/10/2023 8:20 AM EST Did you pend patient's preferred pharmacy and medication before forwarding?yes Pharmacy: [id number] [address] [facility] Pending Prescriptions: Disp Refills Alendronate Sodium 70 MG Oral Tablet (Fos*12 Tab*2 Sig: Take 1 Tablet by mouth once a week. Last Visit: 05/16/2023 (in office), Visit date not found (telemedicine) Next Visit: 11/04/2023 If no future appointments scheduled, and last appointment is greater than a year ago, please schedule patient for a follow-up appointment Last date the medication was ordered: 12/05/2022 Is this request for a controlled substance?No Urine Drug Screen: Results for orders placed or performed in visit on 05/16/23 PAIN MANAGEMENT DRUG PANEL, URINE W/ INTERPRETATION Result Value Compliance Interpretation Based on the medication information provided: The absence of hydrocodone, dihydrocodeine and hydromorphone could be due to low-dose and/or intermittent use of hydrocodone. The presence of temazepam and oxazepam is CONSISTENT with the temazepam use. Amphetamines Screen, U Negative Benzodiazepines Screen, U Refer to confirmation results (A) Cannabinoids Screen, U Negative Cocaine Metabolite Screen, U Negative Fentanyl Screen, U Negative Hydrocodone Screen, U Refer to confirmation results (A) Methadone Metabolite Screen, U Negative Morphine/Codeine Screen, U Negative Oxycodone Screen, U Negative Valid Interpretation Normal Creatinine, U 115 Narrative Cutoff Concentrations: Drug Level Amphetamines 500 ng/mL Benzodiazepines 100 ng/mL Cannabinoids 50 ng/mL Cocaine Metabolite 150 ng/mL Fentanyl 1 ng/mL Hydrocodone / Hydromorphone 300 ng/mL Methadone Metabolite 100 ng/mL Morphine / Codeine 300 ng/mL Oxycodone / Oxymorphone 100 ng/mL Screening results are presumptive and can only be used for medical purposes. Confirmatory testing is available upon request. Results for orders placed or performed in visit on 02/27/18 OPIOIDS/BENZO COMPLIANCE MONITORING TEST Result Value URINE DRUG SCREEN RESULT Amphetamine NEGATIVE Barbiturates NEGATIVE Benzodiazepines NEGATIVE Cannabinoids NEGATIVE Cocaine Metabolite NEGATIVE METHADONE METABOLITE NEGATIVE Morphine / Codeine REFER TO CONFIRMATION RESULT (A) OXYCODONE REFER TO CONFIRMATION RESULT (A) COMMENT THE ABOVE SCREENING RESULTS ARE PRESUMPTIVE AND CAN ONLY BE USED FOR MEDICAL PURPOSES. CONFIRMATORY TESTING IS AVAILABLE UPON REQUEST. Cutoff Concentration URINE VALID INTERP NORMAL CREATININE SIXTO 104 NITRITE SIXTO 38 pH SIXTO 5.3 Patient Phone Numbers [place] [phone] Labs: Lab Results Component Value Date/Time CREAT 0.8 06/28/2023 10:11 AM CREAT 1.0 05/31/2020 03:59 PM POTASSIUM 3.9 06/28/2023 10:11 AM POTASSIUM 4.4 05/31/2020 03:59 PM LDLCALC 119 05/13/2023 11:39 AM LDLCALC 148 (H) 11/10/2019 03:32 PM LDLDIRECT NOT APPLICABLE 11/10/2019 03:32 PM ALT 16 06/28/2023 10:11 AM ALT 24 05/31/2020 03:59 PM HGBA1C 5.4 11/20/2022 11:26 AM documented in this encounter Plan of Treatment Upcoming Encounters Date Type Department Care Team (Late st Contact Info) Description 11/04/2023 3:40 PM EDT Office Visit Rheumatology [address] [place] [address] Bradford Briseno MD [address] [place] [address] [place] [address] 12/12/2023 10:00 AM EDT [facility] [place] [address] Mirza Chapman DO [address] [place] [address] 07/30/2024 10:20 AM EST Office [address], [address] [address] Diana Olivares PAJv [address] [place] [address] [place] [address] Scheduled Orders Name Type Priority Associated Diagnoses Orde r Schedule 25-HYDROXY VITAMIN D Lab Routine Encounter for long-term (current) use of medications Expected: 08/28/2023 (Approximate), Expires: 08/13/2024 Scheduled Procedures Name Priority Associated Diagnoses Date/Ti [...] this encounter Medical Devices Implanted Type Area Refuse Driver Device Identifier Shelf Expiration Date Model / Serial / Lot Knee Triathlon Bead No Amol L 3 - [id number] Implanted:Qty: 1 on 12/10/2022 by Mirza Chapman DO at OR [facility] Left: Knee KATIE : ORTHOPAEDICS 08/02/2027 5517-F-301 / / [id number] Baseplate #3 Tritanium - [id number] Implanted:Qty: 1 on 12/10/2022 by Mirza Chapman DO at OR [facility] Left: Knee KATIE : ORTHOPAEDICS 09/04/2027 5536-B-300 / / [id number] Knee X3 Ins Pos Cs Sz3 11 - [id number] Implanted:Qty: 1 on 12/10/2022 by Mirza Chapman DO at OR [facility] Left: Knee KATIE : ORTHOPAEDICS 08/26/2027 5531-G-311 -[id number] / / [id number] documented as of this encounter Visit Diagnoses Diagnosis Encounter for long-term (current) use of medications- Primary Encounter for long-term (current) use of other medications documented in this encounter Advance Directives Documents on File Type Date Recorded 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 Question Answer Comments Discussion of Advance Directives occurred with: Patient Care Teams Lidder Relationship Specialty Start Date End Date Ellis Matos MD [address] [facility] [place] [address] PCP - General Family Medicine 11/24/18 documented as of this encounter
--- OUTSIDE RECORDS SUMMARY | 2023-08-24 08:31 | External Medical Summary | Summary of Care ---
Author Name Unknown Organization [facility] Address [address] [facility] [place] [address] Phone [phone] Care Team Providers Care Temporary Staff Accountant Name Role Phone Gael De La Cruz MD Primary Care Provider [phone] Reason for Visit * Reason Comments eRx-Medication Refill Encounter Details Date Type Department Care Team (Late st Contact Info) Description 08/06/2023 Refill Family [facility] [address] [place] [address] Gael De La Cruz MD [address] [place] [address] HTN, goal below 130/80 Allergies Active Allergy Reactions Criticality Noted Date Comments Leflunomide Rash 07/08/2014 Sulfa Antibiotics Rash 01/25/2011 documented as of this encounter (statuses as of 08/07/2023) Medications Medication Sig Dispensed Refills Start Date End Date Status CALTRATE 600+D 600-400 MG-UNIT PO TABS 1 daily 0 Active ASPIRIN 325 MG PO TABS 1 daily 0 Active MULTIVITAMINS PO TABS 1 daily 0 Active albuterol-ipratro pium (DUONEB) 2.5-0.5 MG/3ML nebulizer solution As needed [...] for Wheezing. 18 g 1 10/13/2021 Active hydroCHLOROthiazi de 25 MG Oral Tablet (Hydrodiuril)Shoshana cations:HTN, goal below 130/80 Take 1 Tablet by mouth in the morning. 90 Tablet 3 08/20/2022 Active valACYclovir HCl 1 GM Oral Tablet (Valtrex) Take 1 Tablet by mouth in the morning. 30 Tablet 5 11/27/2022 Active Alendronate Sodium 70 MG Oral Tablet (Fosamax) Take 1 Tablet by mouth once a week. 12 Tablet 2 12/05/2022 Active predniSONE 5 MG Oral Tablet (Deltasone)Indica tions:Rheumatoid arthritis involving multiple sites with positive rheumatoid factor (HCC) take 1-2 tablets by mouth every morning if needed 100 Tablet 2 12/19/2022 Active Pravastatin Sodium 20 MG Oral Tablet (Pravachol)Indica tions:History of CVA (cerebrovascular accident) Take 1 Tablet [...] for Sleep. 30 Capsule 3 04/24/2023 Active Hydroxychloroquin e Sulfate 200 MG Oral Tablet (Plaquenil)Indica tions:Rheumatoid arthritis involving multiple sites with positive rheumatoid factor (HCC) take 1 tablet by mouth at bedtime 90 Tablet 3 04/26/2023 Active Metoprolol Succinate ER 25 MG Oral Tablet Extended Release 24 Hour (toPROL XL)Indications:HT N, goal below 130/80 take 1 tablet by [...] a day if needed 0 03/12/2023 Active Orencia 125 MG/ML Subcutaneous Solution Prefilled Syringe (Abatacept)Indica tions:Rheumatoid arthritis involving multiple sites with positive rheumatoid factor (HCC) Inject 125 mg (1 pen) under the skin once a week. 4 mL 11 05/21/2023 Active Methotrexate 2.5 MG Oral TabletIndications :Rheumatoid arthritis involving multiple sites with positive rheumatoid factor (HCC) Take 8 Tablets by mouth once a week. 32 Tablet 5 07/19/2023 Active HYDROcodone-Aceta minophen 5-325 MG Oral TabletIndications :Rheumatoid arthritis involving multiple sites with positive rheumatoid factor (HCC) Take 1 Tablet by mouth every 6 hours as needed for Pain, Moderate. For ongoing therapy. May fill 07/19/23 or later 120 Tablet 0 07/19/2023 Active Losartan Potassium 25 MG Oral Tablet (Cozaar)Indicatio ns:HTN, goal below 130/80 take 1 tablet by mouth every morning 90 Tablet 1 08/07/2023 Active Losartan Potassium 25 MG Oral Tablet (Cozaar)Indicatio ns:HTN, goal below 130/80 TAKE ONE TABLET BY MOUTH EVERY DAY IN THE MORNING 90 Tablet 3 08/20/2022 4 Discontinued documented as of this encounter (statuses as of 08/07/2023) Active Problems Problem Noted Date Diagnosed Date Hx of nonmelanoma skin cancer 06/13/2023 Overview: basal cell carcinoma (mid forehead 12/22, L spiritism hairline 12/22) S/P total knee arthroplasty, left [...] as of this encounter (statuses as of 08/07/2023) Resolved Problems Problem Noted Date Diagnosed Date [...] as of this encounter (statuses as of 08/07/2023) Immunizations Name Administration Dates Next Due COVID-19 [...] encounter Miscellaneous Notes * Telephone Encounter - Shawn Melvin [facility] - 08/07/2023 12:44 PM EST Signed Prescriptions: Disp Refills Losartan Potassium 25 MG Oral Tablet (Coza*90 Tab*1 Sig: take 1 tablet by mouth every morningAuthorizing Provider: GAEL DE LA CRUZ User: SHAWN MELVIN documented in this encounter Plan of Treatment Upcoming Encounters Date Type Department Care Team (Late st Contact Info) Description 11/04/2023 3:40 PM EDT Office Visit [facility]umatology [address] [place] [address] Josh Sierra MD [address] [place] [address] [place] [address] 12/12/2023 10:00 AM EDT Office Visit Orthopaedics [facility] [address] [place] [address] Mirza Chapman DO [address] [place] [address] 07/30/2024 10:20 AM EST Office Visit [address] [place] [phone] Diana Olivares PA-C [address] [place] [address] [place] [phone] Scheduled Procedures Name Priority Associated Diagnoses Date/Ti [...] this encounter Medical Devices Implanted Type Area Chief Of Surgery Device Identifier Shelf Expiration Date Model / Serial / Lot Knee Triathlon Bead No Amol L 3 - [id number] Implanted:Qty: 1 on 12/10/2022 by Mirza Chapman, at OR [facility] Left: Knee KATIE : ORTHOPAEDICS 08/02/2027 5517-F-301 / / [id number] Baseplate #3 Tritanium - [id number] Implanted:Qty: 1 on 12/10/2022 by Mirza Chapman, DO at [facility] Left: Knee KATIE : ORTHOPAEDICS 09/04/2027 5536-B-300 / / [id number] Knee X3 Ins Pos Cs Sz3 11 - [id number] Implanted:Qty: 1 on 12/10/2022 by Mirza Chapman, DO at OR [facility] Left: Knee KATIE : ORTHOPAEDICS 08/26/2027 5531-G-311 -[id number] / / [id number] documented as of this encounter Visit Diagnoses Diagnosis HTN, goal below 130/80 Unspecified essential hypertension documented in this encounter Advance Directives Documents on File Type Date 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 Question Answer Comments Discussion of Advance Directives occurred with: Patient Care Teams Temporary Staff Accountant Relationship Specialty Start Date End Date Gael De La Cruz MD [address] [place] [address] PCP - General Family Medicine 11/24/18 documented as of this encounter
--- OUTSIDE RECORDS SUMMARY | 2023-08-24 08:31 | External Medical Summary ---
Author Name Unknown Address Unknown Organization K0G:[facility] [address] [place] [id number] Laboratory Report Ordering Provider Test Date Status SUZANNA FELDER 06/28/2023 10:11:42 Final Observation Date Value Abnormality Reference (Units ) Status BUN 06/28/2023 10:11:42 14 6-20 (mg/dL) Final Creatinine 06/28/2023 10:11:42 0.8 0.5-1.0 (mg/dL) Final Glomerular filtration rate/1.73 sq M.predicted [Volume Rate/Area] in Serum, Plasma or Blood by Creatinine-based formula (CKD-EPI) 06/28/2023 10:11:42 82 >=60 (mL/min) Final eGFR is calculated based on the CKD-EPI 2020 equation SODIUM 06/28/2023 10:11:42 140 135-146 (m mol/L) Final Potassium 06/28/2023 10:11:42 3.9 3.5-5.1 (m mol/L) Final Cl 06/28/2023 10:11:42 100 98-107 (mm ol/L) Final CO2 06/28/2023 10:11:42 26 22-32 (mmo l/L) Final Anion gap 06/28/2023 10:11:42 14 7-15 (mmol /L) Final Glucose 06/28/2023 10:11:42 74 70-120 (mg /dL) Final Albumin 06/28/2023 10:11:42 4.0 3.8-5.0 (g /dL) Final AST (Aspartate aminotransferase) 06/28/2023 10:11:42 16 10-35 (U/L) Final Alk Phos 06/28/2023 10:11:42 75 35-130 (U/ L) Final Bilirubin, Total 06/28/2023 10:11:42 0.5 <=1 .2 (mg/dL) Final Calcium 06/28/2023 10:11:42 9.2 8.4-10.2 ( mg/dL) Final Protein 06/28/2023 10:11:42 6.4 6.0-8.3 (g /dL) Final ALT (Alanine aminotransferase) 06/28/2023 10:11:42 16 10-35 (U/L) Final Performing Location [facility] [address] [facility] [address]
--- OUTSIDE RECORDS SUMMARY | 2023-08-24 08:31 | External Medical Summary ---
Author Name Unknown Address Unknown Organization [facility] [address] [facility] [address] [place] [id number] Laboratory Report Ordering Provider Test Date Status SUZANNA FELDER 06/28/2023 10:11:42 Final Observation Date Value Abnormality Reference (Units ) Status WBC, Total 06/28/2023 10:11:42 7.94 4.00-10.8 0 (K/uL) Final RBC 06/28/2023 10:11:42 4.28 3.85-5.15 (M/uL) Final Hemoglobin 06/28/2023 10:11:42 13.6 12.0-15.3 (g/dL) Final HCT 06/28/2023 10:11:42 41.6 36.0-45.2 (%) Final MCV 06/28/2023 10:11:42 97.2 81.5-97.5 (fL) Final MCH 06/28/2023 10:11:42 31.8 27.0-34.0 (pg) Final MCHC 06/28/2023 10:11:42 32.7 32.0-36.0 (g/dL) Final RDW 06/28/2023 10:11:42 13.4 11.5-15.5 (%) Final Platelets 06/28/2023 10:11:42 257 140-400 (K /uL) Final MPV 06/28/2023 10:11:42 11.1 6.6-11.1 ( fL) Final Performing [facility] [address] [place] [id number]
--- OUTSIDE RECORDS SUMMARY | 2023-08-24 08:31 | External Medical Summary | Summary of Care ---
Author Name Unknown Organization [facility] Address [address] [facility] [place] [address] Phone [phone] Care Team Providers Care Slice Cutting Machine Operator Name Role Phone Ellis Matos MD Primary Care Provider [phone] Reason for Visit * Reason Comments eRx-Medication Refill Encounter Details Date Type Department Care Team (Late st Contact Info) Description 07/17/2023 Refill Rheumatology [place] [address] [place] [address] Josh Sierra MD [facility] [place] [address] Rheumatoid arthritis involving multiple sites with positive rheumatoid factor (HCC) Allergies Active Allergy Reactions Criticality Noted Date Comments Leflunomide Rash 07/08/2014 Sulfa Antibiotics Rash 01/25/2011 documented as of this encounter (statuses as of 07/19/2023) Medications Medication Sig Dispensed Refills Start Date End Date Status CALTRATE 600+D 600-400 MG-UNIT PO TABS 1 daily 0 Active ASPIRIN 325 MG PO TABS 1 daily 0 Active MULTIVITAMINS PO TABS 1 daily 0 Active albuterol-ipratropi um (DUONEB) 2.5-0.5 MG/3ML nebulizer solution As needed [...] for Wheezing. 18 g 1 10/13/2021 Active hydroCHLOROthiazide 25 MG Oral Tablet (Hydrodiuril)Indica tions:HTN, goal below 130/80 Take 1 Tablet by mouth in the morning. 90 Tablet 3 08/20/2022 Active valACYclovir HCl 1 GM Oral Tablet (Valtrex) Take 1 Tablet by mouth in the morning. 30 Tablet 5 11/27/2022 Active Alendronate Sodium 70 MG Oral Tablet (Fosamax) Take 1 Tablet by mouth once a week. 12 Tablet 2 12/05/2022 Active Losartan Potassium 25 MG Oral Tablet (Cozaar)Indications :HTN, goal below 130/80 TAKE ONE TABLET BY MOUTH EVERY DAY IN THE MORNING 90 Tablet 3 08/20/2022 08/20/2023 Active predniSONE 5 MG Oral Tablet (Deltasone)Indicati ons:Rheumatoid arthritis involving multiple sites with positive rheumatoid factor (HCC) take 1-2 tablets by mouth every morning if needed 100 Tablet 2 12/19/2022 Active Methotrexate 2.5 MG Oral TabletIndications:R heumatoid arthritis involving multiple sites with positive rheumatoid factor (HCC) take 8 tablets by mouth every week 32 Tablet 5 01/02/2023 Active Pravastatin Sodium 20 MG Oral Tablet (Pravachol)Indicati ons:History of CVA (cerebrovascular accident) Take 1 Tablet [...] for Sleep. 30 Capsule 3 04/24/2023 Active HYDROcodone-Acetami nophen 5-325 MG Oral TabletIndications:R heumatoid arthritis involving multiple sites with positive rheumatoid factor (HCC) Take 1 Tablet by mouth every 6 hours as needed for Pain, Moderate. For ongoing therapy. May fill 04/24/23 or later 120 Tablet 0 04/24/2023 Active Hydroxychloroquine Sulfate 200 MG Oral Tablet (Plaquenil)Indicati ons:Rheumatoid arthritis involving multiple sites with positive rheumatoid [...] Orencia 125 MG/ML Subcutaneous Solution Prefilled Syringe (Abatacept)Indicati ons:Rheumatoid arthritis involving multiple sites with positive rheumatoid factor (HCC) Inject 125 mg (1 pen) under the skin once a week. 4 mL 11 05/21/2023 Active documented as of this encounter (statuses as of 07/19/2023) Active Problems Problem Noted Date Diagnosed Date Hx of nonmelanoma skin cancer 06/13/2023 Overview: basal cell carcinoma (mid forehead 12/22, L uatsdin hairline 12/22) S/P total knee arthroplasty, left [...] as of this encounter (statuses as of 07/19/2023) Resolved Problems Problem Noted Date Diagnosed Date [...] as of this encounter (statuses as of 07/19/2023) Immunizations Name Administration Dates Next Due COVID-19 [...] Miscellaneous Notes * Telephone Encounter - Isacc Jackson, [facility] - 07/19/2023 11:06 AM EST Refused Prescriptions: Disp Refills Methotrexate Sodium 2.5 MG Oral Tablet 32 Tab*5 Sig: take 8 tablets by mouth every weekRefused By: ISACC JACKSONeason for Refusal: Duplicate Request-------- * Telephone Encounter - Isacc Jackson RP - 07/19/2023 10:58 AM EST Duplicate request. See RE 07/18/23. Thank you, Isacc Jackson, PharmD [facility] Clinical Pharmacist Rheumatology Department [phone] 07/19/2023 documented in this encounter Plan of Treatment Upcoming Encounters Date Type Department Care Team (Late st Contact Info) Description 07/25/2023 10:00 AM EST Office Visit Family Practice [facility] [address] [place] [address] Bijal Hernandez CRNP [address] [place] [address] 07/29/2023 12:00 PM EST Imaging Radiology [facility] 1st Floor, [place] [address] [place] [address] 11/04/2023 3:40 PM EDT Office Visit Rheumatology [address] [place] [address] Josh Sierra MD [address] [place] [address] [place] [address] 12/12/2023 10:00 AM EDT Office Visit Orthopaedics [facility] [address] [place] [address] Mirza Chapman, DO [address] [place] [address] 07/30/2024 10:20 AM EST Office Visit Dermatology, [place] [address] [facility] [place] [address] Diana Olivares, DAMIAN [address] [place] [address] [place] [address] Scheduled Procedures Name Priority Associated Diagnoses Date/Ti me COLONOSCOPY FLEXIBLE PROXIMAL DIAGNOSTIC Recall History of colon polyps Health Maintenance Due Date Last Done Comments Zoster Vaccines (1 of 2) 1972 DTaP,Tdap,and Td Vaccines (1 - Tdap) 03/03/2013 03/02/2013 Depression Screening 02/16/2021 02/17/2020 COVID-19 Vaccine (5 - season) 2023 08/22/2021, 02/06/2021, 07/29/2020, Additional history exists Pneumococcal Vaccine: 65+ Years (4 of 4 - PPSV23 or PCV20) 04/04/2023 05/22/2019, 04/04/2018, 09/17/2016, Additional history exists Mammogram 07/25/2023 07/25/2022, 02/02, 10/30/2018, Additional history exists COLONOSCOPY-EVERY 5 YRS AGES 18-100 03/03/2024 03/03/2019, 03/03/2019 GFR 06/28/2024 06/28/2023, 05/03, 01/31/2023, Additional history exists Albumin/Creatinine Ratio 07/13/2024 07/13/2021 Diabetes Screening 06/28/2026 06/28/2023, 1 07/17/2022, 01/31/2023, [...] this encounter Medical Devices Implanted Type Area Risk Management Specialist Device Identifier Shelf Expiration Date Model / Serial / Lot Knee Triathlon Bead No Amol L 3 - [id number] Implanted:Qty: 1 on 12/10/2022 by Mirza Chapman, DO at OR [facility] Left: Knee KATIE : ORTHOPAEDICS 08/02/2027 5517-F-301 / / [id number] Baseplate #3 Tritanium - [id number] Implanted:Qty: 1 on 12/10/2022 by Mirza Chapman, DO at [facility] Left: Knee KATIE : ORTHOPAEDICS 09/04/2027 5536-B-300 / / [id number] Knee X3 Ins Pos Cs Sz3 11 - [id number] Implanted:Qty: 1 on 12/10/2022 by Mirza Chapman, DO at OR [facility] Left: Knee KATIE : ORTHOPAEDICS 08/26/2027 [id number]-G-[id number] -[id number] / / [id number] documented as of this encounter Visit Diagnoses Diagnosis Rheumatoid arthritis involving multiple sites with positive rheumatoid factor (HCC) documented in this encounter Advance Directives Documents on File Type Date Recorded 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 Question Answer Comments Discussion of Advance Directives occurred with: Patient Care Teams Slice Cutting Machine Operator Relationship Specialty Start Date End Date Ellis Matos MD [address] [place] [address] PCP - General Family Medicine 11/24/18 documented as of this encounter
--- OUTSIDE RECORDS SUMMARY | 2023-08-24 08:31 | External Medical Summary | Summary of Care ---
Author Name Unknown Organization [facility] Address [address] [facility] [place] [address] Phone [phone] Care Team Providers Care Micropaleontologist Name Role Phone Ellis Matos MD Primary Care Provider [phone] Reason for Visit * Reason Onset Date Comments Scheduling 06/28/2023 Encounter Details Date Type Department Care Team (Late st Contact Info) Description 06/28/2023 Telephone Family Practice [facility] [address] [place] [address] Ellis Matos MD [address] [place] [address] Scheduling Allergies Active Allergy Reactions Criticality Noted Date Comments Leflunomide Rash 07/08/2014 Sulfa Antibiotics Rash 01/25/2011 documented as of this encounter (statuses as of 07/02/2023) Medications Medication Sig Dispensed Refills Start Date [...] as of this encounter (statuses as of 07/02/2023) Active Problems Problem Noted Date Diagnosed Date Hx of nonmelanoma skin cancer 06/13/2023 Overview: basal cell carcinoma (mid forehead 12/22, L sabianism hairline 12/22) S/P total knee arthroplasty, left [...] as of this encounter (statuses as of 07/02/2023) Resolved Problems Problem Noted Date Diagnosed Date [...] as of this encounter (statuses as of 07/02/2023) Immunizations Name Administration Dates Next Due COVID-19 [...] encounter Miscellaneous Notes * Telephone Encounter - Rosalee Baker MED ASSIST - 06/29/2023 8:01 AM EST Ok to schedule with AP * Telephone Encounter - Elmo James OSA - 06/28/2023 10:05 AM EST Pt's appt was canceled and rescheduled, pt did not get the message and stopped at my desk in clinic. I told her the date she was rescheduled for, this appt will not work for the pt. Please advise if there's any way to reschedule something sooner, [facility]'s next opening isn't until September. Ok to offer AP? documented in this encounter Plan of Treatment Upcoming Encounters Date Type Department Care Team (Late st Contact Info) Description 07/25/2023 10:00 AM EST Office Visit Family Practice [facility] [address] [place] [address] Bijal Hernandez CRNP [address] [place] [address] 07/29/2023 12:00 PM EST Imaging Radiology [facility] [facility] [address] [place] [address] 11/04/2023 3:40 PM EDT Office Visit Rheumatology [address] [place] [address] Josh Sierra MD [address] [place] [address] [place] [address] 12/12/2023 10:00 AM EDT Office Visit Orthopaedics [facility] [address] [place] [address] Mirza Chapman DO [address] [place] [address] 07/30/2024 10:20 AM EST Office Visit Dermatology[address] [place] [address] Diana Olivares PA-C [address] [place] [address] [place] [address] Scheduled Procedures Name Priority Associated Diagnoses Date/Ti me COLONOSCOPY FLEXIBLE PROXIMAL DIAGNOSTIC Recall History of colon polyps Health Maintenance Due Date Last Done Comments Zoster Vaccines (1 of 2) 1972 DTaP,Tdap,and Td Vaccines (1 - Tdap) 03/03/2013 03/02/2013 Depression Screening 02/16/2021 02/17/2020 COVID-19 Vaccine (5 - 2022- season) 2023 08/22/2021, 02/06/2021, 07/29/2020, Additional history exists Pneumococcal Vaccine: 65+ Years (4 - PPSV23 or PCV20) 04/04/2023 05/22/2019, 04/04/2018, 09/17/2016, Additional history exists Mammogram 07/25/2023 07/25/2022, 02/02, 10/30/2018, Additional history exists COLONOSCOPY-EVERY 5 YRS AGES 18-100 03/03/2024 03/03/2019, 03/03/2019 GFR 06/28/2024 06/28/2023, 05/03, 01/31/2023, Additional history exists Albumin/Creatinine Ratio 07/13/2024 07/13/2021 Diabetes Screening 06/28/2026 06/28/2023, 1 07/17/2022, 01/31/2023, Additional history exists Lipid Panel 05/13/2028 05/13/2023, 0806/2022, 12/05/2021, Additional history exists DXA Scan 04/16/2029 04/16/2022, 09/0 11/2015, 02/07/2016 Influenza Vaccine (FLU shot) Completed , 06/06/2021, [...] this encounter Medical Devices Implanted Type Area Straight Knife Cutter Machine Device Identifier Shelf Expiration Date Model / Serial / Lot Knee X3 Ins Pos Cs Sz3 11 - [id number] Implanted:Qty: 1 on 12/10/2022 by Mirza Chapman DO at OR [facility] Left: Knee KATIE : ORTHOPAEDICS 08/26/2027 [id number]-G-[id number] / / [id number] documented as of this encounter Advance Directives Documents on File Type Date Recorded 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 Question Answer Comments Discussion of Advance Directives occurred with: Patient Care Teams Micropaleontologist Relationship Specialty Start Date End Date Ellis Matos MD [address] [facility] [place] [address] PCP - General Family Medicine 11/24/18 documented as of this encounter
--- OUTSIDE RECORDS SUMMARY | 2023-08-24 08:31 | External Medical Summary | Summary of Care ---
Author Name Unknown Organization [facility] Address [address] [facility] [address] Phone [phone] Care Team Providers Care Staff Registered Nurse Name Role Phone Ellis Matos MD Primary Care Provider [phone] Encounter Details Date Type Department Care Team ([facility] st Contact Info) Description 07/17/2023 Specialty Pharmacy [facility], [address] [address] Medication, [place] Specialty Refill, [address] [address] Allergies Active Allergy Reactions Criticality Noted Date Comments Leflunomide Rash 07/08/2014 Sulfa Antibiotics Rash 01/25/2011 documented as of this encounter (statuses as of 07/17/2023) Medications Medication Sig Dispensed Refills Start Date [...] as of this encounter (statuses as of 07/17/2023) Active Problems Problem Noted Date Diagnosed Date Hx of nonmelanoma skin cancer 06/13/2023 Overview: basal cell carcinoma (mid forehead 12/22, L roman catholic hairline 12/22) S/P total knee arthroplasty, left [...] as of this encounter (statuses as of 07/17/2023) Resolved Problems Problem Noted Date Diagnosed Date [...] as of this encounter (statuses as of 07/17/2023) Immunizations Name Administration Dates Next Due COVID-19 [...] as of this encounter Progress Notes * Dana Hernandez CPhT - 07/17/2023 8:26 AM EST Prescribed medication: Medication: Orencia Shipment date: 07/22 Delivery method: Specialty Mail Location Medication Delivered too? Prescription Address: [address] [place] [address] [place] [address] Dana Hernandez CPhT [facility] 07/17/2023,8:26 AM documented in this encounter Plan of Treatment Upcoming Encounters Date Type Department Care Team (Late st Contact Info) Description 07/25/2023 10:00 AM EST Office Visit Family Practice [facility] [address] [facility] [place] [address] Bijal Hernandez CRNP [address] [facility] [place] [address] 07/29/2023 12:00 PM EST Imaging Radiology [facility] [facility] [address] [facility] [place] [address] 11/04/2023 3:40 PM EDT Office Visit Rheumatology [address] [place] [address] Josh Sierra MD [address] [place] [address] [place] [address] 12/12/2023 10:00 AM EDT Office Visit Orthopaedics [facility] [address] [facility] [place] [address] Mirza Chapman DO [address] [facility] [place] [address] 07/30/2024 10:20 AM EST Office Visit Dermatology[address] [place] [address] Diana Olivares PAJv [address] [place] [address] [place] [address] Scheduled Procedures Name Priority Associated Diagnoses Date/Ti me COLONOSCOPY FLEXIBLE PROXIMAL DIAGNOSTIC Recall History of colon polyps Health Maintenance Due Date Last Done Comments Zoster Vaccines (1 of 2) 1972 DTaP,Tdap,and Td Vaccines (1 - Tdap) 03/03/2013 03/02/2013 Depression Screening 02/16/2021 02/17/2020 COVID-19 Vaccine ( - 2022- season) 2023 08/22/2021, 02/06/2021, 07/29/2020, [...] this encounter Medical Devices Implanted Type Area Drafter Refrigeration Device Identifier Shelf Expiration Date Model / Serial / Lot Knee X3 Ins Pos Cs Sz3 11 - [id number] Implanted:Qty: 1 on 12/10/2022 by Mirza Chapman, DO at OR [facility] Left: Knee KATIE : ORTHOPAEDICS 08/26/2027 [id number]-G-[id number] / / [id number] documented as of this encounter Advance Directives Documents on File Type Date Recorded 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 Question Answer Comments Discussion of Advance Directives occurred with: Patient Care Teams Staff Registered Nurse Relationship Specialty Start Date End Date Ellis Matos MD [address] [place] [address] PCP - General Family Medicine 11/24/18 documented as of this encounter
--- OUTSIDE RECORDS SUMMARY | 2023-08-24 08:31 | External Medical Summary | Summary of Care ---
Author Name Unknown Organization [facility] Address [address] [facility] [place] [address] Phone [phone] Care Team Providers Care Supervisor Clam Bed Name Role Phone Gael Matos MD Primary Care Provider [phone] Reason for Visit * Reason Comments Follow Up Lesions check on gregg k Encounter Details Date Type Department Care Team (Late st Contact Info) Description 06/20/2023 9:20 AM EST Office Visit Dermatology[address] [address] Diana Olivares PA-C [address] [place] [address] [place] [address] Hx of nonmelanoma skin cancer*; Nevus lipomatosus cutaneous superficialis; Multiple nevi; Seborrheic keratosis; Scar condition and fibrosis of skin Allergies Active Allergy Reactions Criticality Noted Date Comments Leflunomide Rash 07/08/2014 Sulfa Antibiotics Rash 01/25/2011 documented as of this encounter (statuses as of 06/21/2023) Medications Medication Sig Dispensed Refills Start Date [...] as of this encounter (statuses as of 06/21/2023) Active Problems Problem Noted Date Diagnosed Date Hx of nonmelanoma skin cancer 06/13/2023 Overview: basal cell carcinoma (mid forehead 12/22, L sikh hairline 12/22) S/P total knee arthroplasty, left [...] as of this encounter (statuses as of 06/21/2023) Resolved Problems Problem Noted Date Diagnosed Date [...] as of this encounter (statuses as of 06/21/2023) Immunizations Name Administration Dates Next Due COVID-19 [...] No 12/10/2022 documented as of this encounter Patient Instructions * Patient Instructions* Diana Olivares PA-C - 06/20/2023 9:00 AM EST SUNSCREEN USE AND SUN PROTECTION: 1. The best protection is sun avoidance. Seek shade if you can, especially between 10am to 4pm (peak sun hours). 2. Use sunscreen with an SPF (Sun Protection Factor - the number on most sunscreen bottles) of 30 or more that protects from Ultraviolet A (UVA) and Ultraviolet B (UVB) wavelength light (strongly recommend SPF 50). This is referred to as broad spectrum sun protection because it protects from most wa velengths in both spectrums of UVA and UVB light. Unfortunately, even though the protection is broad it is not complete, therefore making sun avoidance the best protection. UVB and UVA have both beenimplicated in causing skin cancers. Older sunscreens only protected from UVB and sunscreens with added UVA protection should contain Titanium dioxide, Zinc oxide, or Avobenzone. Other oil free, non-comedogenic lotion with SPF 30 or greater is fine. 3. Use sun protection if outside for 15 minutes or more. Apply 20-30 minutes before going out and reapply every 1-2 hours. No sunscreen is truly water ''proof'' and it will wash away with sweat, swimming and rubbing. 4. Wear tightly woven, loose fitting (cooler) long sleeved clothing, UV-blocking sun glasses (eyes need protection as well) and wide-brimmed hatwear (no straw hats with holes because light still getsthrough). Strongly recommended *Neutrogena Pure and Free Baby SPF 60 (have separate face and body lotions) orCeraVe AM facial lotion (with SPF 30). If looking for non toxic alternatives-look for non-savita particle zinc. Product examples; Think sport, Think baby, Ricco, [employer] botanicals, [place]ba TriActives, [place] baby. "Baby" products can be used for all ages. documented in this encounter Progress Notes * Hardeep Carl MD - 06/21/2023 9:12 AM EST I have seen and examined the patient via teledermatology review of chart note and photos with Diana Olivares PA-C. I have reviewed and agree with the assessment and plan. * Diana Olivares PA-C - 06/20/2023 8:58 AM EST SUBJECTIVE: HPI: Lore Brito is a 67 year old female seen at the request of Gael Matos MD for evaluation and treatment of lesion/full skin exam. No vulvar exams performed, no vulvar discoloration and/or lesions to be assessed per pt. - Tanning bed history. + Blistering sunburns. Found lesion on back 2+ weeks ago, asymptomatic. No tx to date. Previous Drs. Arriaza/Cirilo/Dewayne patient. RA, treated with MTX, prednisone, plaquenil. 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 REVIEW OF SYSTEMS: SKIN: No other new or changing moles. HEME/LYMPH: No new or enlarging lumps or bumps. CONSTITUTIONAL: No nausea, vomiting, fevers, chills, diarrhea. No recent unintended weight loss, night sweats, appetite or malaise. RESP: negative MSK/EXT: Negative or as per HPI GI: negative CV: Negative or as per HPI Rest of systems are negative or as per HPI SKIN CANCER HX: basal cell carcinoma (mid forehead 12/22, L sikh/hairline 12/22) Reviewed, same day as visit, 0 [facility] Dermatology lab work(s)/pathology report(s) as well as those sent by referring provider prior to seeing pt. Past Medical History: Diagnosis Date Arthritis, rheumatoid (HCC) CVA (cerebral infarction) 11/2014 Dyslipidemia 11/24/2018 Gastroesophageal reflux disease with esophagitis 05/22/2019 History of 2019 novel coronavirus disease (COVID-19) History of CVA (cerebrovascular accident) 05/22/2019 HTN, goal below 130/80 HTN, goal to be determined Long-term use of immunosuppressant medication 11/24/2018 MEDICATION USE AGREEMENT Motion sickness Obesity, Class II, BMI 35-39.9, isolated (see actual BMI) 12/01/2021 Primary insomnia 11/24/2018 Primary osteoarthritis of both knees 11/30/2020 Reactive airway disease without complication 06/06/2021 TIA (transient ischemic attack) 2000 FAMILY HISTORY: Skin CA: None Skin Disorders: none SOCIAL HISTORY: Social History Tobacco Use Smoking status: Former Types: Cigarettes Quit date: 12/01/1998 Years since quittin.5 Smokeless tobacco: Never Substance Use Topics Alcohol use: Yes Comment: rarely Vaping/E-Cigarette Use Vaping/E-Cigarette Use Never User Vaping/E-Cigarette Substances Vaping/E-Cigarette Devices MEDICA TIONS: Current Outpatient Medications Medication Sig Dispense Refill CALTRATE 600+D 600-400 MG-UNIT PO TABS 1 daily ASPIRIN 325 MG PO TABS 1 daily MULTIVITAMINS PO TABS 1 daily albuterol-ipratropium (DUONEB) 2.5-0.5 MG/3ML nebulizer solution As needed 0 Cholecalciferol (VITAMIN D) 125 MCG (5000 UT) CAPS Take by mouth. Triamcinolone Acetonide 0.1 % External Cream (Aristocort) Apply topically to affected area 2 times a day. Apply to rash on arms and legs 80 g 2 Ventolin HFA 108 (90 Base) MCG/ACT Inhalation Aerosol Solution Inhale by mouth 2 Puffs every 4 hours as needed for Wheezing. 18 g 1 hydroCHLOROthiazide 25 MG Oral Tablet (Hydrodiuril) Take 1 Tablet by mouth in the morning. 90 Tablet 3 valACYclovir HCl 1 GM Oral Tablet (Valtrex) Take 1 Tablet by mouth in the morning. 30 Tablet 5 Alendronate Sodium 70 MG Oral Tablet (Fosamax) Take 1 Tablet by mouth once a week. 12 Tablet 2 Losartan Potassium 25 MG Oral Tablet (Cozaar) TAKE ONE TABLET BY MOUTH EVERY DAY IN THE MORNING 90 Tablet 3 predniSONE 5 MG Oral Tablet (Deltasone) take 1-2 tablets by mouth every morning if needed 100 Tablet 2 Methotrexate 2.5 MG Oral Tablet take 8 tablets by mouth every week 32 Tablet 5 Pravastatin Sodium 20 MG Oral Tablet (Pravachol) Take 1 Tablet by mouth in the morning. 90 Tablet 0 Omeprazole 20 MG Oral Capsule Delayed Release (PriLOSEC) take 1 capsule by mouth every morning AND 1 CAPSULE BEFORE BEDTIME 180 Capsule 3 Albuterol Sulfate 0.63 MG/3ML Inhalation Nebulization Solution (Accuneb) Inhale 1 Vial via nebulizer every 4 hours as needed for Wheezing. 300 mL 1 Temazepam 30 MG Oral Capsule (Restoril) Take 1 Capsule by mouth at bedtime as needed for Sleep. 30 Capsule 3 HYDROcodone-Acetaminophen 5-325 MG Oral Tablet Take 1 Tablet by mouth every 6 hours as needed for Pain, Moderate. For ongoing therapy. May fill 04/24/23 or later 120 Tablet 0 Hydroxychloroquine Sulfate 200 MG Oral Tablet (Plaquenil) take 1 tablet by mouth at bedtime 90 Tablet 3 Metoprolol Succinate ER 25 MG Oral Tablet Extended Release 24 Hour (toPROL XL) take 1 tablet by mouth once daily 90 Tablet 2 Folic Acid 1 MG Oral Tablet take 1 tablet by mouth once daily 90 Tablet 3 Breo Ellipta 100-25 MCG/ACT Inhalation Aerosol Powder Breath Activated inhale 1 puff by mouth and INTO THE LUNGS once daily - RINSE MOUTH WELL AFTER USE Benzonatate 100 MG Oral Capsule (Tessalon Perles) take 1 capsule by mouth three times a day if needed Orencia 125 MG/ML Subcutaneous Solution Prefilled Syringe (Abatacept) Inject 125 mg (1 pen) under the skin once a week. 4 mL 11 No current facility-administered medications for this visit. ALLERGY: Arava [leflunomide] and Sulfa antibiotics OBJECT CHARLOTTE: GEN: alert, no distress, appears oriented, pleasant, and cooperative. SKIN: Detailed exam of hair, face including lids and lips, neck, chest, abdomen, back, bilateral upper ext. (arm, hand, fingers), bilateral lower ext. (leg, foot, toes), palpation of scalp, fingernails, toenails, inguinal areas, groin (mons pubis), buttocks, and anus completed: 1. L sikh and mid forehead-2 white linear atrophic scars. 2. L lower back and R groin crease- 2 1-4cm skin colored soft fleshy pedunculated plaques. 3. Scalp/face/neck/trunk/bilat arms and legs-Many sharply defined, variegated brown, waxy flat papules with velvety to finely verrucous surfaces. 4. Trunk/bilat arms and legs-About 50 total; 2-4mm light and light-medium brown macules and very few soft papules. ASSESS MENT/PLAN: 1. Scars s/p squamous cell carcinomas on L sikh and mid forehead-No sign of recurrence. 2. 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 3. Seborrheic/Benign Keratosis(-es) on scalp/face/neck/trunk/bilat arms and legs-no tx needed, pt given reassurance and written education about diagnosis. 4. Nevi on trunk/bilat arms and legs-no tx needed, pt given reassurance and written education aboutdiagnosis. Skin cancer brochure given and ABCDE's discussed with patient. Annual full body skin examination (unless I recommended otherwise), self-examination, and sun protection (SPF 30+ daily to sun exposed areas, with reapplication every 1-2 hours when out in sun for long periods of time) advised and discussed. Recommended sooner follow up for new or changing lesions. These changes include rapid enlargement, changes in color or shape or symptoms, bleeding, or other concerns. The common features and behavior of non-melanoma skin cancers (e.g. BCC/SCC) as well as the ABCDEs and ugly duckling features of melanoma were also reviewed. Patient alone today. Photo(s) of #1-4 taken, pt verbally consented to having photo(s) taken. Follow-up: 1 year for full skin exam Photos and chart reviewed by Dr. Hardeep Carl. Presum ed diagnoses, expected natural histories, and management options discussed with the patient at length. Questions were addressed and anticipatory guidance provided. They were instructed to contact me if additional questions, concerns, or problems develop in the interim. -There were no barriers to learning and no other pain was related to today's visit. The patient and/or person accompanying patient demonstrates understanding of the visit and treatment. Diana Olivares PA-C 06/20/2023 8:58 AM Ref: GAEL MATOS[[id number]] [address] [address] (office) [phone] (fax) PCP: GAEL MATOS [address] [address] [phone] documented in this encounter Nursing Notes * Clemencia Lew LPN - 06/20/2023 9:26 AM EST Patient identified by full name and date of . Chief Complaint Patient presents with Follow Up Lesions check on back documented in this encounter Plan of Treatment Upcoming Encounters Date Type Department Care Team (Late st Contact Info) Description 06/28/2023 10:20 AM EST Office Visit [facility] [address] [place] [address] Gael Matos MD [address] [place] [address] 07/29/2023 12:00 PM EST Imaging Radiology [facility] [address] [facility] [place] [address] 11/04/2023 3:40 PM EDT Office Visit Rheumatology [place] [id number] [facility] [place] [address] Josh Sierra MD [address] [facility] [place] [address] 12/12/2023 10:00 AM EDT Office Visit Orthopaedics [facility] [address] [place] [address] Mirza Chapman, [address] [place] [address] 07/30/2024 10:20 AM EST Office Visit [address] [place] [address] Diana Olivares, DAMIAN [address] [place] [address] [place] [address] Scheduled Procedures Name Priority Associated Diagnoses Date/Ti [...] YRS AGES 18-100 03/03/2024 03/03/2019, 03/03/2019 GFR 05/16/2024 05/16/2023, 01/03, 12/11/2022, Additional history exists Albumin/Creatinine Ratio 07/13/2024 07/13/2021 Diabetes Screening 05/16/2026 05/16/2023, 0 01/31/2023, 12/11/2022, Additional history exists Lipid Panel 05/13/2028 05/13/2023, 01/03, 12/05/2021, Additional history exists DXA Scan 04/16/2029 04/16/2022, 0911/2015, 02/07/2016 Influenza Vaccine (FLU shot) Completed , [...] this encounter Medical Devices Implanted Type Area Manager Programs Device Identifier Shelf Expiration Date Model / Serial / Lot Knee X3 Ins Pos Cs Sz3 11 - [id number] Implanted:Qty: 1 on 12/10/2022 by Mirza Chapman, at OR [facility] Left: Knee KATIE : ORTHOPAEDICS 08/26/2027 [id number]-G-[id number] / / [id number] documented as of this encounter Procedures Procedure Name Priority Date/Time Associated Diagnosis Comments DERM IMAGE (SITE) Routine 06/20/2023 Hx of nonmelanoma skin cancer Nevus lipomatosus cutaneous superficialis Multiple nevi Seborrheic keratosis Scar condition and fibrosis of skin documented in this encounter Results * DERM IMAGE (SITE) (06/20/2023) 06/20/2023 Diana Olivares PA-C DIGITAL PHOTOG MARISOL documented in this encounter Visit Diagnoses Diagnosis Hx of nonmelanoma skin cancer- Primary Personal history of other malignant neoplasm of skin Nevus lipomatosus cutaneous superficialis Lipoma of other skin and subcutaneous tissue Multiple nevi Benign neoplasm of skin, site unspecified Seborrheic keratosis Other seborrheic keratosis Scar condition and fibrosis of skin documented in this encounter Advance Directives Documents on File Type Date 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 Question Answer Comments Discussion of Advance Directives occurred with: Patient Care Teams Supervisor Clam Bed Relationship Specialty Start Date End Date Gael Matos MD [address] [facility] [place] [address] PCP - General Family Medicine 11/24/18 documented as of this encounter
--- OUTSIDE RECORDS SUMMARY | 2023-08-24 08:31 | External Medical Summary | Summary of Care ---
Author Name Unknown Organization [facility] Address [address] [place] [place] [place] [address] Phone [phone] Care Team Providers Care Forestry Adviser Name Role Phone Ellis Matos MD Primary Care Provider [phone] Reason for Visit * Reason Onset Date Comments Medication Refill 07/19/2023 Encounter Details Date Type Department Care Team (Late st Contact Info) Description 07/19/2023 Refill Rheumatology, [address] [address] Josh Briseno MD [facility] [place] [address] Rheumatoid arthritis involving multiple sites with positive [...] for Wheezing. 18 g 1 10/13/2021 Active hydroCHLOROthiazid e 25 MG Oral Tablet (Hydrodiuril)Indic ations:HTN, goal below 130/80 Take 1 Tablet by [...] Oral Tablet (Cozaar)Indication s:HTN, goal below 130/80 TAKE ONE TABLET BY MOUTH EVERY DAY IN THE MORNING 90 Tablet 3 08/20/2022 Active predniSONE 5 MG Oral Tablet (Deltasone)Indicat [...] a week. 4 mL 11 05/21/2023 Active HYDROcodone-Acetam inophen 5-325 MG Oral TabletIndications: Rheumatoid arthritis involving multiple sites with positive rheumatoid factor (HCC) Take 1 Tablet by mouth every 6 hours as needed for Pain, Moderate. For ongoing therapy. May fill 07/19/23 or later 120 Tablet 0 07/19/2023 Active Methotrexate 2.5 MG Oral TabletIndications: Rheumatoid arthritis involving multiple sites with positive rheumatoid factor (HCC) take 8 tablets by mouth every week 32 Tablet 5 01/02/2023 4 Discontinue d(Refill) HYDROcodone-Acetam inophen 5-325 MG Oral TabletIndications: Rheumatoid arthritis involving multiple sites with positive rheumatoid factor (HCC) Take 1 Tablet by mouth every 6 hours as needed for Pain, Moderate. For ongoing therapy. May fill 04/24/23 or later 120 Tablet 0 04/24/2023 4 Discontinue d(Refill) documented as of this encounter (statuses as of 07/19/2023) Active Problems Problem Noted Date Diagnosed Date Hx of nonmelanoma skin cancer 06/13/2023 Overview: basal cell carcinoma (mid forehead 12/22, L confucianist hairline 12/22) S/P total knee arthroplasty, left [...] encounter Miscellaneous Notes * Telephone Encounter - Josh Briseno MD - 07/19/2023 12:52 PM ESTSigned Prescriptions: Disp Refills HYDROcodone-Acetaminophen 5-325 MG Oral Ta*120 Ta*0 Sig: Take 1 Tablet by mouth every 6 hours as needed for Pain, Moderate. For ongoing therapy. May fill 07/19/23 orlaterAuthorizing Provider: JOSH BRISENO * Telephone Encounter - Josh Briseno MD - 07/19/2023 12:51 PM EST I have reviewed the patients controlled substance dispensing history in the Prescription Drug Monitoring Program in compliance with the [facility] regulations before prescribing a controlled substance. Last Tox Screen Results: Results for orders placed or performed in [...] 104 NITRITE SIXTO 38 pH SIXTO 5.3 * Telephone Encounter - Mera Chavis LPN - 07/19/2023 11:58 AM ESTPending Prescriptions: Disp Refills HYDROcodone-Acetaminophen 5-325 MG Oral Ta*120 Ta*0 Sig: Take 1 Tablet by mouth every 6 hours as needed for Pain, Moderate. For ongoing therapy. May fill 07/19/23 or later * Telephone Encounter - Mera Chavis LPN - 07/19/2023 11:58 AM EST Pending Prescriptions: Disp Refills HYDROcodone-Acetaminophen 5-325 MG Oral T*120 Ta*0 Sig: Take 1 Tablet by mouth every 6 hours as needed for Pain, Moderate. For ongoing therapy. May fill 07/19/23 or later Last Visit: Visit date not found (in office), Visit date not found (telemedicine) Next Visit: Visit date not found Patient Active Problem List Diagnosis Code HTN, goal below 130/80 I10 Rheumatoid arthritis involving multiple sites with positive rheumatoid factor (HCC) M05.79 MEDICATION USE AGREEMENT CX9142 Vasculopathy I99.9 Dyslipidemia E78.5 Primary insomnia F51.01 Long-term use of immunosuppressant medication Z79.60 Gastroesophageal reflux disease with esophagitis K21.00 History of CVA (cerebrovascular accident) Z86.73 Reactive airway disease without complication J45.909 Obesity, Class II, BMI 35-39.9, isolated (see actual BMI) E66.9 S/P total knee arthroplasty, left Z96.652 Hx of nonmelanoma skin cancer Z85.828 documented in this encounter Plan of Treatment Upcoming Encounters Date Type Department Care Team (Late st Contact Info) Description 07/25/2023 10:00 AM EST Office Visit Family Practice [facility] [address] [place] [address] Bijal Hernandez CRNP [address] [place] [address] 07/29/2023 12:00 PM EST Imaging Radiology [facility] [address] [place] [address] 11/04/2023 3:40 PM EDT Office Visit Rheumatology [address] [place] [address] Josh Briseno MD [address] [place] [address] [place] [address] 12/12/2023 10:00 AM EDT Office Visit Orthopaedics [facility] [address] [place] [address] Mirza Chapman DO [address] [place] [address] 07/30/2024 10:20 AM EST Office Visit Dermatology[address] [place] [address] Diana Olivares PA-C [address] [place] [address] [place] [phone] Scheduled Procedures Name Priority Associated Diagnoses Date/Ti [...] this encounter Medical Devices Implanted Type Area Vp Analytics Device Identifier Shelf Expiration Date Model / Serial / Lot Knee Triathlon Bead No Amol L 3 - [id number] Implanted:Qty: 1 on 12/10/2022 by Mirza Chapman, DO at [facility] Left: Knee KATIE : ORTHOPAEDICS 08/02/2027 [id number] / / [id number] Baseplate #3 Tritanium - [id number] Implanted:Qty: 1 on 12/10/2022 by Mirza Chapman, at [facility] Left: Knee KATIE : ORTHOPAEDICS 09/04/2027 [id number] / / [id number] Knee X3 Ins Pos Cs Sz3 11 - [id number] Implanted:Qty: 1 on 12/10/2022 by Mirza Chapman, DO at [facility] Left: Knee KATIE : ORTHOPAEDICS 08/26/2027 [id number] / / [id number] documented as of this encounter Visit Diagnoses Diagnosis Rheumatoid arthritis involving multiple sites with positive rheumatoid factor (HCC) documented in this encounter Advance Directives Documents on File Type Date Recorded Patient Office Support Specialist 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 Question Answer Comments Discussion of Advance Directives occurred with: Patient Care Teams Forestry Adviser Relationship Specialty Start Date End Date Ellis Matos MD [address] [place] [address] PCP - General Family Medicine 11/24/18 documented as of this encounter
--- OUTSIDE RECORDS SUMMARY | 2023-08-24 08:31 | External Medical Summary | Summary of Care ---
Author Name Unknown Organization [facility] [address] [facility] [address] Phone [phone] Care Team Providers Care Software Sales Consultant Name Role Phone Ellis Matos MD Primary Care Provider [phone] Reason for Visit * Reason Onset Date Comments Medication Refill 07/18/2023 Encounter Details Date Type Department Care Team (Late st Contact Info) Description 07/18/2023 Refill Rheumatology [place] [address] [place] [address] Bradford Briseno MD [facility] [place] [address] Rheumatoid arthritis involving multiple sites with positive [...] 11 05/21/2023 Active Methotrexate 2.5 MG Oral TabletIndications: Rheumatoid arthritis involving multiple sites with positive rheumatoid factor (HCC) Take 8 Tablets by mouth once a week. 32 Tablet 5 07/19/2023 Active Methotrexate 2.5 MG Oral TabletIndications: [...] basal cell carcinoma (mid forehead 12/22, L mandaen hairline 12/22) S/P total knee arthroplasty, left [...] encounter Miscellaneous Notes * Telephone Encounter - Bradford Briseno MD - 07/19/2023 12:53 PM ESTSigned Prescriptions: Disp Refills Methotrexate 2.5 MG Oral Tablet 32 Tab*5 Sig: Take 8 Tablets by mouth once a week.Authorizing Provider: BRADFORD BRISENO * Telephone Encounter - Bradford Briseno MD - 07/19/2023 12:53 PM EST Okay to continue with methotrexate. Will refill. * Telephone Encounter - Varsha Jackson [facility] - 07/19/2023 10:58 AM EST Pending Prescriptions: Disp Refills Methotrexate 2.5 MG Oral Tablet 32 Tab*5 Sig: Take 8 Tablets by mouth once a week. * Telephone Encounter - Varsha Jackson [facility] - 07/19/2023 10:43 AM EST Rheumatology: Refill Request(s) Per review of the refill parameters, Medication was NOT refilled d/t following concern: Chart review shows history of basal cell carcinoma being followed by Dermatology. Most recent derm OV 06/20/23 suggested follow up in 1 year. UpToDate lists basal cell carcinoma as a possible adverse reaction to MTX in postmarketing studies. Please approve refills if current tx remains appropriate. Most recent MTX monitoring labs on 06/28/23 were normal. Varsha Jackson [facility] Clinical Pharmacist Rheumatology Department 07/19/2023,10:43 AM * Telephone Encounter - Thiago Winters - 07/18/2023 7:44 PM ESTPending Prescriptions: Disp Refills Methotrexate 2.5 MG Oral Tablet 32 Tab*5 * Telephone Encounter - Thiago Winters - 07/18/2023 7:42 PM EST Did you pend patient's preferred pharmacy and medication before forwarding?yes Pharmacy: [id number] Pending Prescriptions: Disp Refills Methotrexate 2.5 MG Oral Tablet 32 Tab*5 Last Visit: 05/16/2023 (in office), Visit date not found (telemedicine) Next Visit: 11/04/2023 If no future appointments scheduled, and last appointment is greater than a year ago, please schedule patient for a follow-up appointment Last date the medication was ordered: 12/14/2022 Is this request for a controlled substance?No [...] 38 pH SIXTO 5.3 Patient Phone Numbers Labs: Lab Results Component Value Date/Time CREAT [...] Description 07/25/2023 10:00 AM EST Office Visit [address] [place] [address] Bijal Hernandez CRNP [address] [place] [address] 07/29/2023 12:00 PM EST Imaging Radiology [facility] 1st [facility] [place] [address] [place] [address] 11/04/2023 3:40 PM EDT Office Visit Rheumatology [address] [place] [address] Bradford Briseno MD [address] [place] [address] [place] [address] 12/12/2023 10:00 AM EDT Office Visit Orthopaedics [facility] [address] [place] [address] Mirza Chapman, 132 [facility] [place] [address] 07/30/2024 10:20 AM EST Office Visit [facility], [address] [address] Diana Olivares, PA-C [address] [place] [address] [place] [address] Scheduled Procedures Name Priority Associated Diagnoses Date/Ti [...] this encounter Medical Devices Implanted Type Area Service Line Layer Device Identifier Shelf Expiration Date Model / Serial / Lot Knee Triathlon Bead No Amol L 3 - [id number] Implanted:Qty: 1 on 12/10/2022 by Mirza Chapman DO at OR [facility] Left: Knee KATIE : ORTHOPAEDICS 08/02/2027 5517-F-[id number] / / [id number] Baseplate #3 Tritanium - [id number] Implanted:Qty: 1 on 12/10/2022 by Mirza Chapman DO at OR [facility] Left: Knee KATIE : ORTHOPAEDICS 09/04/2027 5536-B-300 / / [id number] Knee X3 Ins Pos Cs Sz3 11 - [id number] Implanted:Qty: 1 on 12/10/2022 by Mirza Chapman DO at OR [facility] Left: Knee KAITE : ORTHOPAEDICS 08/26/2027 5531-G-[id number] -[id number] / / [id number] documented as of this encounter Visit Diagnoses Diagnosis Rheumatoid arthritis involving multiple sites with positive rheumatoid factor (HCC) documented in this encounter Advance Directives Documents on File Type Date Recorded Patient Silhouette Artist 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 Question Answer Comments Discussion of Advance Directives occurred with: Patient Care Teams Software Sales Consultant Relationship Specialty Start Date End Date Ellis Matos MD [address] [place] [address] PCP - General Family Medicine 11/24/18 documented as of this encounter
--- OUTSIDE RECORDS SUMMARY | 2023-08-24 08:31 | External Medical Summary | Summary of Care ---
Author Name Unknown Organization [facility] Address [address] [facility] [place] [address] Phone [phone] Care Team Providers Care Restorative Aide Name Role Phone Ellis Matos MD Primary Care Provider [phone] Reason for Visit * Reason Onset Date Comments Health Maintenance 06/18/2023 Encounter Details Date Type Department Care Team (Late st Contact Info) Description 06/18/2023 Telephone Family Practice [facility] [address] [place] [address] Ellis Matos MD [address] [place] [address] Health Maintenance Allergies Active Allergy Reactions Criticality Noted Date Comments Leflunomide Rash 07/08/2014 Sulfa Antibiotics Rash 01/25/2011 documented as of this encounter (statuses as of 06/18/2023) Medications Medication Sig Dispensed Refills Start Date [...] needed for Pain, Moderate. For ongoing therapy. October/22/23 or later 120 Tablet 0 04/24/2023 Active [...] as of this encounter (statuses as of 06/18/2023) Active Problems Problem Noted Date Diagnosed Date Hx of nonmelanoma skin cancer 06/13/2023 Overview: basal cell carcinoma (mid forehead 12/22, L anabaptist hairline 12/22) S/P total knee arthroplasty, left [...] as of this encounter (statuses as of 06/18/2023) Resolved Problems Problem Noted Date Diagnosed Date [...] as of this encounter (statuses as of 06/18/2023) Immunizations Name Administration Dates Next Due COVID-19 [...] encounter Miscellaneous Notes * Telephone Encounter - Rayna LuuNAGI - 06/18/2023 3:27 PM EST Care Gaps Comprehensive Care Outreach Last Office/Telemedicine Visit: 12/25/2022 (in office), 06/27/2022 (telemedicine) Next Office Visit: 06/28/2023 Hemoglobin AIC Results: Lab Results Component Value Date/Time HEMOGLOBIN A1C - ADRIANER 5.4 11/20/2022 11:26 AM Reviewed Health Maintenance below: Health Maintenance Topic Date Due Zoster Vaccines (1 of 2) Never done DTaP,Tdap,and Td Vaccines (1 - Tdap) 03/03/2013 Depression Screening 02/16/2021 COVID-19 Vaccine ( - 2022- season) 2023 Pneumococcal Vaccine: 65+ Years (4 - PPSV23 or PCV20) 04/04/2023 Mammogram 07/25/2023 Mamm jul 25 already scheduled Awv my g Care Gap Outreach Action Taken: DSI MET-TECH message sent documented in this encounter Plan of Treatment Upcoming Encounters Date Type Department Care Team (Late st Contact Info) Description 06/20/2023 9:20 AM EST Office Visit Dermatology[address] [place] [address] Diana Olivares PA-C [address] [place] [address] [place] [address] 06/28/2023 10:20 AM EST Office Visit Family Practice [facility] [address] [place] [address] Ellis Matos MD 132 [facility] [place] [address] 07/29/2023 12:00 PM EST Imaging Radiology [facility] 1st [facility] [address] [place] [address] 11/04/2023 3:40 PM EDT Office Visit Rheumatology [address] [place] [address] Josh Sierra MD [address] [place] [address] [place] [address] 12/12/2023 10:00 AM EDT Office Visit Orthopaedics [facility] [address] [place] [address] Mirza Chapman, [address] [place] [address] Scheduled Procedures Name Priority Associated Diagnoses Date/Ti [...] this encounter Medical Devices Implanted Type Area Tower Truck Driver Device Identifier Shelf Expiration Date Model / Serial / Lot Knee X3 Ins Pos Cs Sz3 11 - [id number] Implanted:Qty: 1 on 12/10/2022 by Mirza Chapman, DO at OR [facility] Left: Knee KATIE : ORTHOPAEDICS 08/26/2027 5531-G-[id number] / / [id number] documented as of this encounter Advance Directives Documents on File Type Date Recorded Patient Track Dresser 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 Question Answer Comments Discussion of Advance Directives occurred with: Patient Care Teams Restorative Aide Relationship Specialty Start Date End Date Ellis Matos MD [address] [place] [address] PCP - General Family Medicine 11/24/18 documented as of this encounter
--- OUTSIDE RECORDS SUMMARY | 2023-08-24 08:31 | External Medical Summary | Summary of Care ---
Author Name Unknown Organization [facility] Address [address] [facility] [place] [address] Phone [phone] Care Team Providers Care Weather Strip Installer Name Role Phone Gael De La Cruz MD Primary Care Provider [phone] Reason for Visit * Reason Comments Follow Up Lesions check on gregg k Encounter Details Date Type Department Care Team (Late st Contact Info) Description 06/20/2023 9:20 AM EST Office Visit Dermatology[address] [address] Diana Olivares PA-C [address] [place] [address] [place] [address] Hx of nonmelanoma skin cancer*; Nevus lipomatosus cutaneous superficialis; Multiple nevi; Seborrheic keratosis; Scar condition and fibrosis of skin Allergies Active Allergy Reactions Criticality Noted Date Comments Leflunomide Rash 07/08/2014 Sulfa Antibiotics Rash 01/25/2011 documented as of this encounter (statuses as of 06/20/2023) Medications Medication Sig Dispensed Refills Start Date [...] as of this encounter (statuses as of 06/20/2023) Active Problems Problem Noted Date Diagnosed Date Hx of nonmelanoma skin cancer 06/13/2023 Overview: basal cell carcinoma (mid forehead 12/22, L hindu hairline 12/22) S/P total knee arthroplasty, left [...] as of this encounter (statuses as of 06/20/2023) Resolved Problems Problem Noted Date Diagnosed Date [...] as of this encounter (statuses as of 06/20/2023) Immunizations Name Administration Dates Next Due COVID-19 [...] Product examples; Think sport, Think baby, [employer], [employer], [employer] botanicals, [employer], [place] baby. "Baby" products can be used for all ages. documented in this encounter Progress Notes * Diana Olivares PA-C - 06/20/2023 8:58 AM EST SUBJECTIVE: HPI: Lore Brito is a 67 year old female seen at the request of Gael De La Cruz MD for evaluation and treatment of lesion/full skin exam. No vulvar exams performed, no vulvar discoloration and/or lesions to be assessed per pt. - Tanning bed history. + Blistering sunburns. Found lesion on back 2+ weeks ago, asymptomatic. No tx to date. Previous Drs. Arriaza/Cirilo/Dewayne patient. RA, treated with MTX, prednisone, plaquenil. Top Collar Baster Documentation Patient offered contract mail carrier and declined. REVIEW OF SYSTEMS: SKIN: No [...] basal cell carcinoma (mid forehead 12/22, L hindu/hairline 12/22) Reviewed, same day as visit, 0 [facility] Dermatology lab work(s)/pathology report(s) as well as [...] pubis), buttocks, and anus completed: 1. L hindu and mid forehead-2 white linear atrophic scars. [...] Scars s/p squamous cell carcinomas on L hindu and mid forehead-No sign of recurrence. 2. [...] Olivares PA-C 06/20/2023 8:58 AM Ref: GAEL DE LA CRUZ[[id number]] [address] [place] [address] (office) [phone] (fax) PCP: GAEL DE LA CRUZ [address] [place] [address] [phone] documented in this encounter Nursing Notes * Clemencia Lew LPN - 06/20/2023 9:26 AM EST Patient identified by full name and date of . Chief Complaint Patient presents with Follow Up Lesions check on back documented in this encounter Plan of Treatment Upcoming Encounters Date Type Department Care Team (Late st Contact Info) Description 06/28/2023 10:20 AM EST Office Visit Family Practice [facility] [address] [place] [address] Gael De La Cruz MD [address] [place] [address] 07/29/2023 12:00 PM EST Imaging Radiology [address] [place] [address] 11/04/2023 3:40 PM EDT Office Visit Rheumatology [address] [place] [address] Josh Sierra MD [address] [place] [address] [place], [place] [address] 12/12/2023 10:00 AM EDT Office Visit Orthopaedics [facility] [address] [place] [address] Mirza Chapman, DO [address] [place] [address] 07/30/2024 10:20 AM EST [facility] [address] [facility], [place] [address] Diana Olivares, PAAdelfoC [address] [place] [address] [place] [address] Scheduled Procedures Name Priority Associated Diagnoses Date/Ti [...] Additional history exists Lipid Panel 05/13/2028 05/13/2023, 08/3 06/2022, 12/05/2021, Additional history exists DXA Scan 04/16/2029 04/16/2022, 090 11/2015, 02/07/2016 Influenza Vaccine (FLU shot) Completed [...] this encounter Medical Devices Implanted Type Area Leaf Tinner Device Identifier Shelf Expiration Date Model / Serial / Lot Knee X3 Ins Pos Cs Sz3 11 - [id number] Implanted:Qty: 1 on 12/10/2022 by Mirza Chapman, at OR [facility] Left: Knee KATIE : ORTHOPAEDICS [...] Documents on File Type Date Recorded Patient Shanker Out 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 Question Answer Comments Discussion of Advance Directives occurred with: Patient Care Teams Weather Strip Installer Relationship Specialty Start Date End Date Gael De La Cruz MD [address] [place] [address] PCP - General Family Medicine 11/24/18 documented as of this encounter
--- OUTSIDE RECORDS SUMMARY | 2023-08-24 08:31 | External Medical Summary | Summary of Care ---
Author Name Unknown Organization [facility] Address [address] [facility] [place] [address] Phone [phone] Care Team Providers Care Relay Shop Tester Name Role Phone Ellis Matos MD Primary Care Provider [phone] Reason for Visit * Reason Comments Outpatient Testing Encounter Details Date Type Department Care Team (Latest Contact Info) Description 06/28/2023 10:40 AM EST Laboratory Laboratory, [facility] [address] [facility] [place] [address] [facility] [address] [facility] [address] Rheumatoid arthritis involving multiple sites with positive rheumatoid factor (HCC); Long-term use of immunosuppressant medication Allergies Active Allergy Reactions Criticality Noted Date Comments Leflunomide Rash 07/08/2014 Sulfa Antibiotics Rash 01/25/2011 documented as of this encounter (statuses as of 06/28/2023) Medications Medication Sig Dispensed Refills Start Date [...] as of this encounter (statuses as of 06/28/2023) Active Problems Problem Noted Date Diagnosed Date Hx of nonmelanoma skin cancer 06/13/2023 Overview: basal cell carcinoma (mid forehead 12/22, L synagogue hairline 12/22) S/P total knee arthroplasty, left [...] as of this encounter (statuses as of 06/28/2023) Resolved Problems Problem Noted Date Diagnosed Date [...] as of this encounter (statuses as of 06/28/2023) Immunizations Name Administration Dates Next Due COVID-19 [...] No 12/10/2022 documented as of this encounter Plan of Treatment Upcoming Encounters Date Type Department Care Team (Late st Contact Info) Description 07/17/2023 12:20 PM EST Office Visit Family Practice [facility] [address] [place] [address] Ellis Matos MD [address] [place] [address] 07/29/2023 12:00 PM EST Imaging Radiology [address] [place] [address] 11/04/2023 3:40 PM EDT Office Visit Rheumatology [address] [place], [place] [address] Josh Sierra MD [address] [place] [address] [place] [address] 12/12/2023 10:00 AM EDT Office Visit Orthopaedics [facility] [address] [place] [address] Mirza Chapman DO [address] [place] [address] 07/30/2024 10:20 AM EST Office Visit [address] [address] Diana Olivares, PAJv [address] [place] [address] [place] [address] Pending Results Name Type Priority Associated Diagnoses Date /Time COMPREHENSIVE METABOLIC PANEL Lab Routine Rheumatoid arthritis involving multiple sites with positive rheumatoid factor (HCC) Long-term use of immunosuppressant medication 06/28/2023 10:11 AM EST Scheduled Procedures Name Priority Associated Diagnoses Date/Ti me COLONOSCOPY FLEXIBLE PROXIMAL DIAGNOSTIC Recall History of colon polyps Health Maintenance Due Date Last Done Comments Zoster Vaccines (1 of 2) 1972 DTaP,Tdap,and Td Vaccines (1 - Tdap) 03/03/2013 03/02/2013 Depression Screening 02/16/2021 02/17/2020 COVID-19 Vaccine ( season) 2023 08/22/2021, 02/06/2021, 07/29/2020, Additional history [...] this encounter Medical Devices Implanted Type Area Truck Farmer Device Identifier Shelf Expiration Date Model / Serial / Lot Knee X3 Ins Pos Cs Sz3 11 - [id number] Implanted:Qty: 1 on 12/10/2022 by Mirza Chapman, DO at OR [facility] Left: Knee KATIE : ORTHOPAEDICS 08/26/2027 5531-G-[id number] -[id number] / / [id number] documented as of this encounter Procedures Procedure Name Priority Date/Time Associated Diagnosis Comments DIFFERENTIAL, AUTOMATED Routine 06/28/2023 10:11 AM EST Rheumatoid arthritis involving multiple sites with positive rheumatoid factor (HCC) Long-term use of immunosuppressant medication CBC Routine 06/28/2023 10:11 AM EST Rheumatoid arthritis involving multiple sites with positive rheumatoid factor (HCC) Long-term use of immunosuppressant medication CBC Routine 06/28/2023 10:11 AM EST Rheumatoid arthritis involving multiple sites with positive rheumatoid factor (HCC) Long-term use of immunosuppressant medication documented in this encounter Results * DIFFERENTIAL, AUTOMATED (06/28/2023 10:11 AM EST) Pathologist [facility] WBC 7.94 4.00 - 10.80 K/uL 06/28/2023 10:26 AM EST [facility] Neutrophils % 62.9 40.0 - 75.0 % 06/28/2023 10:26 AM EST [facility] [place] [facility] Lymphocytes % 22.8 18.0 - 42.0 % 06/28/2023 10:26 AM EST [facility] [place] [facility] Monocytes % 9.9 1.0 - 11.0 % 06/28/2023 10:26 AM EST [facility] [place] [facility] Eosinophils % 3.8 0.0 - 6.0 % 06/28/2023 10:26 AM EST [facility] [place] [facility] Basophils % 0.6 0.0 - 2.0 % 06/28/2023 10:26 AM EST [facility] [place] [facility] Absolute Neutrophils 4.99 1.80 - 7.70 K/uL 06/28/2023 10:26 AM EST [facility] [place] [facility] [facility] Absolute Lymphocytes 1.81 1.00 - 4.80 K/ul 06/28/2023 10:26 AM EST [facility] [place] [facility] [facility] Absolute Monocytes 0.79 0.00 - 1.10 K/uL 06/28/2023 10:26 AM EST [facility] [place] [facility] Absolute Eosinophils 0.30 0.00 - 0.70 K/uL 06/28/2023 10:26 AM EST [facility] [place] [facility] Absolute Basophils 0.05 0.00 - 0.20 K/uL 06/28/2023 10:26 AM EST [facility] [place] [facility] Blood Venous blood specimen / Unknown Venipuncture / Unknown 06/28/2023 10:11 AM EST 06/28/2023 10:11 AM EST Josh Sierra MD LAB BLOOD ORDERABLE S [facility] [place] [facility] [address] [place] [address] * CBC (06/28/2023 10:11 AM EST) WBC 7.94 4.00 - 10.80 K/uL 06/28/2023 10:26 AM EST [facility] [place] [facility] RBC 4.28 3.85 - 5.15 M/uL 06/28/2023 10:26 AM EST [facility] [place] [facility] HGB 13.6 12.0 - 15.3 g/dL 06/28/2023 10:26 AM EST [facility] [place] [facility] HCT 41.6 36.0 - 45.2 % 06/28/2023 10:26 AM EST [facility] [place] [facility] MCV 97.2 81.5 - 97.5 fL 06/28/2023 10:26 AM EST [facility] [place] [facility] MCH 31.8 27.0 - 34.0 pg 06/28/2023 10:26 AM EST [facility] [place] [facility] MCHC 32.7 32.0 - 36.0 g/dL 06/28/2023 10:26 AM EST [facility] [place] [facility] RDW 13.4 11.5 - 15.5 % 06/28/2023 10:26 AM EST [facility] [place] [facility] PLT 257 140 - 400 K/uL 06/28/2023 10:26 AM EST [facility] [place] [facility] [facility] MPV 11.1 6.6 - 11.1 fL 06/28/2023 10:26 AM EST [facility] [place] [facility] [facility] Blood Venous blood specimen / Unknown Venipuncture / Unknown 06/28/2023 10:11 AM EST 06/28/2023 10:11 AM EST Josh Sierra MD LAB BLOOD ORDERABLE S [facility] [place] [facility] [address] [place] [address] documented in this encounter Visit Diagnoses Diagnosis Rheumatoid arthritis involving multiple sites with positive rheumatoid factor (HCC) Long-term use of immunosuppressant medication Encounter for long-term (current) use of other medications documented in this encounter Advance Directives Documents on File Type Date Recorded 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 Question Answer Comments Discussion of Advance Directives occurred with: Patient Care Teams Relay Shop Tester Relationship Specialty Start Date End Date Ellis Matos MD [address] [place] [address] PCP - General Family Medicine 11/24/18 documented as of this encounter
--- OUTSIDE RECORDS SUMMARY | 2023-08-24 08:31 | External Medical Summary | Summary of Care ---
Author Name Unknown Organization [facility] Address [address] [facility] [place] [address] Phone [phone] Care Team Providers Care Clinical Educator Name Role Phone Gael De La Cruz MD Primary Care Provider [phone] [phone] Reason for Visit * Reason Comments eRx-Medication Refill Encounter Details Date Type Department Care Team (Late st Contact Info) Description 08/09/2023 Refill Family [facility] [address] [place] [address] Gael De La Cruz MD [address] [place] [address] HTN, goal below 130/80 Allergies Active Allergy Reactions Criticality Noted Date Comments Leflunomide Rash 07/08/2014 Sulfa Antibiotics Rash 01/25/2011 documented as of this encounter (statuses as of 08/10/2023) Medications Medication Sig Dispensed Refills Start Date [...] every morning 90 Tablet 1 08/07/2023 Active hydroCHLOROthiazi de 25 MG Oral Tablet (Hydrodiuril)Shoshana cations:HTN, goal below 130/80 take 1 tablet by mouth every morning 90 Tablet 3 08/10/2023 Active hydroCHLOROthiazi de 25 MG Oral Tablet (Hydrodiuril)Shoshana cations:HTN, goal below 130/80 Take 1 Tablet by mouth in the morning. 90 Tablet 3 08/20/2022 4 Discontinued documented as of this encounter (statuses as of 08/10/2023) Active Problems Problem Noted Date Diagnosed Date Hx of nonmelanoma skin cancer 06/13/2023 Overview: basal cell carcinoma (mid forehead 12/22, L bahai hairline 12/22) S/P total knee arthroplasty, left [...] as of this encounter (statuses as of 08/10/2023) Resolved Problems Problem Noted Date Diagnosed Date [...] as of this encounter (statuses as of 08/10/2023) Immunizations Name Administration Dates Next Due COVID-19 [...] encounter Miscellaneous Notes * Telephone Encounter - Heather Erickson, [facility] - 08/10/2023 8:19 AM EST Signed Prescriptions: Disp Refills hydroCHLOROthiazide 25 MG Oral Tablet (Hyd*90 Tab*3 Sig: take 1tablet by mouth every morningAuthorizing Provider: GAEL DE LA CRUZ User: HEATHER ERICKSON documented in this encounter Plan of Treatment Upcoming Encounters Date Type Department Care Team (Late st Contact Info) Description 11/04/2023 3:40 PM EDT Office Visit Rheumatology [address] [place] [address] Josh Sierra MD [address] [place] [address] [place] [address] 12/12/2023 10:00 AM EDT Office Visit Orthopaedics [facility] [address] [place] [place] [address] Mirza Chapman DO [address] [place] [address] 07/30/2024 10:20 AM EST Office Visit [address] [place] [address] Diana Olivares PA-C [address] [place] [address] [place] [id number] Scheduled Procedures Name Priority Associated Diagnoses Date/Ti [...] this encounter Medical Devices Implanted Type Area Ointment Mill Tender Device Identifier Shelf Expiration Date Model / Serial / Lot Knee Triathlon Bead No Amol L 3 - [id number] Implanted:Qty: 1 on 12/10/2022 by Mirza Chapman, at OR [facility] Left: Knee KATIE : ORTHOPAEDICS 08/02/2027 5517-F-[id number] / / [id number] Baseplate #3 Tritanium - [id number] Implanted:Qty: 1 on 12/10/2022 by Mirza Chapman, DO at OR [facility] Left: Knee KATIE : ORTHOPAEDICS 09/04/2027 5536-B-300 / / [id number] Knee X3 Ins Pos Cs Sz3 11 - [id number] Implanted:Qty: 1 on 12/10/2022 by Mirza Chapman, DO at OR [facility] Left: Knee KATIE : ORTHOPAEDICS 08/26/2027 5531-G-[id number] -[id number] / / [id number] documented as of this encounter Visit Diagnoses Diagnosis HTN, goal below 130/80 Unspecified essential hypertension documented in this encounter Advance Directives Documents on File Type Date Recorded 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 Question Answer Comments Discussion of Advance Directives occurred with: Patient Care Teams Clinical Educator Relationship Specialty Start Date End Date Gael De La Cruz MD [address] [place] [address] PCP - General Family Medicine 11/24/18 documented as of this encounter
--- OUTSIDE RECORDS SUMMARY | 2023-08-24 08:31 | External Medical Summary ---
Author Name Unknown Address Unknown Organization [facility] [address] [place] [address] Laboratory Report Ordering Provider Test Date Status SUZANNA FELDER 06/28/2023 10:11:42 Final Observation Date Value Abnormality Reference (Units ) Status SYNC LEUKOCYTES IN BLOOD BY AUTOMATED COUNT 06/28/2023 10:11:42 7.94 4.00-10.80 (K/uL) Final Segs 06/28/2023 10:11:42 62.9 40.0-75.0 (%) Final Lymphs % 06/28/2023 10:11:42 22.8 18.0-42.0 (%) Final Monos 06/28/2023 10:11:42 9.9 1.0-11.0 (%) Final Eosinophils 06/28/2023 10:11:42 3.8 0.0-6.0 (%) Final Basos 06/28/2023 10:11:42 0.6 0.0-2.0 (%) Final Absolute Segs 06/28/2023 10:11:42 4.99 1.80-7.70 (K/uL) Final Lymphs, absolute 06/28/2023 10:11:42 1.81 1.00-4.80 (K/ul) Final Monos, Abs 06/28/2023 10:11:42 0.79 0.00-1.10 (K/uL) Final Eos, Abs 06/28/2023 10:11:42 0.30 0.00-0.70 (K/uL) Final Basos, Abs 06/28/2023 10:11:42 0.05 0.00-0.20 (K/uL) Final [facility] Location [facility] [place] [address]
--- OUTSIDE RECORDS SUMMARY | 2023-08-24 08:32 | External Medical Summary | Summary of Care ---
Author Name Unknown Organization [facility] Address [address] [facility] [place] [address] Phone [phone] Care Team Providers Care Gas Distribution Supervisor Name Role Phone Ellis Matos MD Primary Care Provider +1 [phone] Reason for Visit * Reason Onset Date Comments Precert Denied 05/22/2023 Orencia Encounter Details Date Type Department Care Team (Late st Contact Info) Description 05/22/2023 Telephone Rheumatology [place] [address] [place] [address] Josh Sierra MD [facility] [place] [address] Precert Denied ( Orencia) Allergies Active Allergy Reactions Criticality Noted Date Comments Leflunomide Rash 07/08/2014 Sulfa Antibiotics Rash 01/25/2011 documented as of this encounter (statuses as of 06/10/2023) Medications Medication Sig Dispensed Refills Start Date [...] as of this encounter (statuses as of 06/10/2023) Active Problems Problem Noted Date Diagnosed Date S/P total knee arthroplasty, left 12/10/2022 Obesity, [...] as of this encounter (statuses as of 06/10/2023) Resolved Problems Problem Noted Date Diagnosed Date [...] as of this encounter (statuses as of 06/10/2023) Immunizations Name Administration Dates Next Due COVID-19 [...] Miscellaneous Notes * Telephone Encounter - Josh Sierra MD - 06/10/2023 2:51 PM EST Please fax and letter for expedited appeal * Telephone Encounter - Catherine Baker [facility] - 06/10/2023 2:16 PM EST Images from the original note were not included. Despite multiple attempts, P2P has not been received via call. Would now Suggest submitting an appeal * Telephone Encounter - Catherine Baker [facility] - 06/07/2023 10:49 AM EST P2P Scheduled Time to Expect Call: Today Case: EOC [id number] Provided Dr. Tovars phone number. Flagged as high priority as this 3rd attempt. * Telephone Encounter - Catherine Baker [facility] - 06/06/2023 3:44 PM EST P2P Scheduled Time to Expect Call: Today Case: EOC [id number] Provided Dr. Tovars phone number. * Telephone Encounter - Josh Sierra MD - 06/06/2023 12:12 PM EST I so far have not received any calls regarding this denial - I can give my cell number through teams (Do not want it in the chart) for them to call that * Telephone Encounter - Catherine Baker [facility] - 05/29/2023 2:24 PM EST P2P Scheduled Called back to provide office numbers, thanks! Time to Expect Call: Anytime 8 AM-3 PM on 06/04-06/06/23 Case: EOC [id number] Phone number to be calling in: [phone] Phone Number Provided: [phone] or [phone] * Telephone Encounter - Josh Sierra MD - 05/29/2023 2:16 PM EST I do not know what that 570 number is. We have the [phone] number to give. Our clinic number is [phone] but my nurses are not always able to answer it and there is no voice mail * Telephone Encounter - Catherine Baker RPh - 05/29/2023 2:14 PM EST The primary office number I had on file which is [phone] And then I provided my phone number as an alternative if they aren't able to reach you. Is there another phone number I should provide? * Telephone Encounter - Josh Sierra MD - 05/29/2023 2:10 PM EST What number did you give them to call? * Telephone Encounter - Catherine Baker RPh - 05/29/2023 1:59 PM EST P2P Scheduled Time to Expect Call: Anytime 8 AM-3 PM on 06/04-06/06/23 Case: EOC [id number] Phone number to be calling in: [phone] * Telephone Encounter - Josh Sierra MD - 05/28/2023 1:45 PM EST I am off this week. Would appeal as she ahs been on this for many years would good control. Catherine Baker [facility] - would you call to set up appeal? * Telephone Encounter - Catherine Baker RPh - 05/28/2023 12:58 PM EST Rheum Team: Appeal or P2P is recommended to facilitate PA approval since patient has been on this therapy of Orencia. Here is some information to help with the P2P. Name: Lore Brito : 1955 Current therapy: Orencia since 2016 Failed: MTX, HCQ, ETA, INF, NSAID, prednisone DX: RA * Telephone Encounter - Gabby Jerez CPhT - 05/28/2023 12:04 PM EST Nacho, Nacho! The prior authorization for orencia has been denied. Does the office plan on appealing this decision or will the provider be seeking alternate therapy for this patient? Please let us know how you plan to proceed so we may follow up appropriately. Thank you, Gabby Jerez CPhT [facility] * Telephone Encounter - Kiki Jerry CPhT - 05/28/2023 7:39 AM EST Images from the original note were not included. Rheumatology Pre-Certification Response Denied - See below Note: Physician may complete a peer to peer within 72 business hours by calling [phone]. Lucero Fernando Medication Veneer Layer Kiki Jerry CPhT-Adv Power Manager II [facility] Services ([facility]PS) (formerly Telepharmacy) 05/28/2023,7:39 AM * Telephone Encounter - Rangel Mosher, human development professor - 05/22/2023 9:20 AM EST New or re-auth: new Patient Lore Figueroa Daniellayohan needs a prior authorization for their Orencia through their [facility] insurance. ID: [id number] BIN:[id number] PCN:[id number] Target ship date is n/a. Thank you very much, Jillian Mosher Section Plotter Operator, [facility] 05/22/2023 9:20 AM documented in this encounter Plan of Treatment Upcoming Encounters Date Type Department Care Team (Late st Contact Info) Description 06/28/2023 10:20 AM EST Office Visit Family Practice [facility] [address] [place] [address] Ellis Matos MD [address] [place] [address] 11/04/2023 3:40 PM EDT [facility] [place] [address] Josh Sierra MD [facility] [employer] [place] [address] 12/12/2023 10:00 AM EDT Office Visit Orthopaedics [facility] [address] [place] [address] Mirza Chapman DO [address] [place] [address] Scheduled Procedures Name Priority Associated Diagnoses Date/Ti [...] Additional history exists DXA Scan 04/16/2029 04/16/2022, 11/2015, 02/07/2016 Influenza Vaccine (FLU shot) Completed [...] this encounter Medical Devices Implanted Type Area Platform Man Device Identifier Shelf Expiration Date Model / Serial / Lot Knee X3 Ins Pos Cs Sz3 11 - [id number] Implanted:Qty: 1 on 12/10/2022 by Mirza Chapman, DO at OR [facility] Left: Knee KATIE : ORTHOPAEDICS 08/26/2027 5531-G-311 -[id number] / / [id number] documented as of this encounter Advance Directives Documents on File Type Date Recorded 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 Question Answer Comments Discussion of Advance Directives occurred with: Patient Care Teams Gas Distribution Supervisor Relationship Specialty Start Date End Date Ellis Matos MD [address] [place] [address] PCP - General Family Medicine 11/24/18 documented as of this encounter
--- OUTSIDE RECORDS SUMMARY | 2023-08-24 08:32 | External Medical Summary | Summary of Care ---
Author Name Unknown Organization [facility] Address [address] [facility] [place] [address] Phone [phone] Care Team Providers Care Shift Boss Name Role Phone Ellis Matos MD Primary Care Provider +1 [phone] Reason for Visit * Reason Onset Date Comments Precert Denied 05/22/2023 Orencia Encounter Details Date Type Department Care Team (Late st Contact Info) Description 05/22/2023 Telephone Rheumatology [place] [address] [place] [address] Josh Sierra MD [facility] [place] [place] [address] Precert Denied ( Orencia) Allergies Active Allergy Reactions Criticality Noted Date Comments Leflunomide Rash 07/08/2014 Sulfa Antibiotics Rash 01/25/2011 documented as of this encounter (statuses as of 06/13/2023) Medications Medication Sig Dispensed Refills Start Date [...] as of this encounter (statuses as of 06/13/2023) Active Problems Problem Noted Date Diagnosed Date Hx of nonmelanoma skin cancer 06/13/2023 Overview: basal cell carcinoma (mid forehead 12/22, L protestant hairline 12/22) S/P total knee arthroplasty, left [...] as of this encounter (statuses as of 06/13/2023) Resolved Problems Problem Noted Date Diagnosed Date [...] as of this encounter (statuses as of 06/13/2023) Immunizations Name Administration Dates Next Due COVID-19 [...] encounter Miscellaneous Notes * Telephone Encounter - Anni Easley, operator automated process - 06/13/2023 1:08 PM EST Patients insurance would like to inform the office that Orencia is approved until from 05-24-23 to 06-13-24. Patient and pharmacy made aware by elif . Information will be faxed to the office. Thank you, Anni Easley,[facility] Dialysis Equipment Technician II Centralized Clin[facility] Pharmacy Services (CCPS) (formerly Telepharmacy) 06/13/2023,1:08 PM * Telephone Encounter - Sana Chavis LPN - 06/10/2023 4:09 PM EST Faxed to [facility] * Telephone Encounter - Catherine Baker RPh - 06/10/2023 3:53 PM EST Images from the original note were not included. * Telephone Encounter - Sana Chavis LPN - 06/10/2023 3:43 PM EST Do you have a fax # where we can fax the letter to? * Telephone Encounter - Josh Sierra MD - 06/10/2023 2:51 PM EST Please fax and letter for expedited appeal * Telephone Encounter - Catherine Baker RPh - 06/10/2023 2:16 PM EST Images from the original note were not included. Despite multiple attempts, P2P has not been received via call. Would now Suggest submitting an appeal * Telephone Encounter - Catherine Baker RPh - 06/07/2023 10:49 AM EST P2P Scheduled Time to Expect Call: Today Case: EOC [id number] Provided Dr. Canales phone number. Flagged as high priority as this 3rd attempt. * Telephone Encounter - Catherine Baker RP - 06/06/2023 3:44 PM EST P2P Scheduled Time to Expect Call: Today Case: EOC [id number] Provided Dr. Tovars phone number. * Telephone Encounter - Josh Sierra MD - 06/06/2023 12:12 PM EST I so far have not received any calls regarding this denial - I can give my cell number through teams (Do not want it in the chart) for them to call that * Telephone Encounter - Catherine Baker RP - 05/29/2023 2:24 PM EST P2P Scheduled Called back to provide office numbers, thanks! Time to Expect Call: Anytime 8 AM-3 PM on 06/04-06/06/23 Case: EOC [id number] Phone number to be calling in: [phone] Phone Number Provided: [phone] or [phone] * Telephone Encounter - Josh Sierra MD - 05/29/2023 2:16 PM EST I do not know what that 570 number is. We have the [phone] number to give. Our clinic number is [phone] but my nurses are not always able to answer it and there is no voice mail * Telephone Encounter - Catherine Baker RP - 05/29/2023 2:14 PM EST The primary office number I had on file which is [phone] And then I provided my phone number as an alternative if they aren't able to reach you. Is there another phone number I should provide? * Telephone Encounter - Josh Sierra MD - 05/29/2023 2:10 PM EST What number did you give them to call? * Telephone Encounter - Catherine Baker [facility] - 05/29/2023 1:59 PM EST P2P Scheduled Time to Expect Call: Anytime 8 AM-3 PM on 06/04-06/06/23 Case: EOC [id number] Phone number to be calling in: [phone] * Telephone Encounter - Josh Sierra MD - 05/28/2023 1:45 PM EST I am off this week. Would appeal as she ahs been on this for many years would good control. Catherine Baker [facility] - would you call to set up appeal? * Telephone Encounter - Catherine Baker [facility] - 05/28/2023 12:58 PM EST Rheum Team: [...] Jerez CPhT - 05/28/2023 12:04 PM EST Nacho Griffith! The prior authorization for orencia has been denied. Does the office plan on appealing this decision or will the provider be seeking alternate therapy for this patient? Please let us know how you plan to proceed so we may follow up appropriately. Thank you, Gabby Jerez CPhT [facility] * Telephone Encounter - Kiki Jerry CPhT - 05/28/2023 7:39 AM EST Images from the original note were not included. Rheumatology Pre-Certification Response Denied - See below Note: Physician may complete a peer to peer within 72 business hours by calling [phone]. Lucero Fernando Medication Office Technologist Kiki Jerry CPhT-Adv Vp Public Relations II Centralized Clinical Pharmacy Services (CCPS) (formerly Telepharmacy) 05/28/2023,7:39 AM * Telephone Encounter - Rangel Mosher operator automated process - 05/22/2023 9:20 AM EST New or re-auth: new Patient Lore Brito needs a prior authorization for their Orencia through their [facility] insurance. ID: [id number] BIN:[id number] PCN:[id number] Target ship date is n/a. Thank you very much, Jillian Mosher Dialysis Equipment Technician, [facility] 05/22/2023 9:20 AM documented in this encounter Plan of Treatment Upcoming Encounters Date Type Department Care Team (Late st Contact Info) Description 06/20/2023 9:20 AM EST [facility]at[facility], [place] [address] [address] [facility] [address] Diana Olivares PA-C [address] [place] [address] [place] [address] 06/28/2023 10:20 AM EST Office Visit Family [facility] [address] [place] [address] Ellis Matos MD [address] [place] [address] 07/29/2023 12:00 PM EST Imaging Radiology [facility] [address] [place] [address] 11/04/2023 3:40 PM EDT Office Visit Rheumatology [place] [address] [employer] [place] [address] Josh Sierra MD [address] [place] [address] [place] [address] 12/12/2023 10:00 AM EDT Office Visit Orthopaedics [facility] [address] [place] [address] Mirza Chapman DO [address] [place] [address] Scheduled Procedures Name Priority Associated Diagnoses Date/Ti me COLONOSCOPY FLEXIBLE PROXIMAL DIAGNOSTIC Recall History of colon polyps Health Maintenance Due Date Last Done Comments Zoster Vaccines (1 of 2) 1972 DTaP,Tdap,and Td Vaccines (1 - Tdap) 03/03/2013 03/02/2013 Depression Screening 02/16/2021 02/17/2020 COVID-19 Vaccine (5 - 2023-24 season) 2023 08/22/2021, 02/06/2021, 07/29/2020, Additional history [...] this encounter Medical Devices Implanted Type Area Route Driver Salesperson Device Identifier Shelf Expiration Date Model / Serial / Lot Knee X3 Ins Pos Cs Sz3 11 - [id number] Implanted:Qty: 1 on 12/10/2022 by Mirza Chapman DO at OR [facility] Left: Knee KATIE : ORTHOPAEDICS 08/26/2027 5531-G-311 -[id number] / / [id number] documented as of this encounter Advance Directives Documents on File Type Date Recorded Patient Pharmacist Hospital 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 Question Answer Comments Discussion of Advance Directives occurred with: Patient Care Teams Shift Boss Relationship Specialty Start Date End Date Ellis Matos MD [address] [place] [address] PCP - General Family Medicine 11/24/18 documented as of this encounter
--- OUTSIDE RECORDS SUMMARY | 2023-08-24 08:32 | External Medical Summary | Summary of Care ---
Author Name Unknown Organization [facility] Address [address] [facility] [place] [address] Phone [phone] Care Team Providers Care Retail Solar Advisor Name Role Phone Ellis Matos MD Primary Care Provider +1 [phone] Reason for Visit * Reason Onset Date Comments Precert Denied 05/22/2023 Orencia Encounter Details Date Type Department Care Team (Late st Contact Info) Description 05/22/2023 Telephone Rheumatology [place] [address] [place] [address] Josh Sierra MD [facility] [place] [address] Precert Denied ( Orencia) Allergies Active Allergy [...] encounter Miscellaneous Notes * Telephone Encounter - Catherine Baker RPh [...] Catherine Baker [facility] - 06/10/2023 2:16 PM EST Images from the original note were not included. Despite multiple attempts, P2P has not been received via call. Would now Suggest submitting an appeal * Telephone Encounter - Catherine Baker RP - 06/07/2023 10:49 AM EST P2P Scheduled Time to Expect Call: Today Case: EOC [id number] Provided Dr. Kendrick's phone number. Flagged as high priority as this 3rd attempt. * Telephone Encounter - Catherine Baker [facility] - 06/06/2023 3:44 PM EST P2P Scheduled Time to Expect Call: Today Case: EOC [id number] Provided Dr. Tovars phone number. * Telephone Encounter - Josh Sierra MD - 06/06/2023 12:12 PM EST I so far have not received any calls regarding this denial - I can give my cell number through teams (Do not want it in the chart) for them to call that * Telephone Encounter - Catherine Baker RPh - 05/29/2023 2:24 PM EST P2P Scheduled Called back to provide office numbers, thanks! Time to Expect Call: Anytime 8 AM-3 PM on 06/04-06/06/23 Case: EOC [id number] Phone number to be calling in: [phone] Phone Number Provided: [phone] or [phone] * Telephone Encounter - Josh Sierra MD - 05/29/2023 2:16 PM EST I do not know what that 570 number is. We have the [phone] number to give. Our clinic number is [phone] but my nurses are not always able to answer it and there is no voice mail * Telephone Encounter - Catherine Baker RPh - 05/29/2023 2:14 PM EST The primary office number I had on file which is [phone] And then I provided my phone number [...] 8 AM-3 PM on 06/04-06/06/23 Case: EOC [id number] Phone number to be calling in: [phone] Electronically signed by Catherine Baker [facility] at 05/29/2023 2:08 PM EST * Telephone Encounter - Josh Sierra MD - 05/28/2023 1:45 PM EST I am off this week. Would appeal as she ahs been on this for many years would good control. Catherine Baker [facility] - would you call to set up appeal? * Telephone Encounter - Catherine Baker [facility] - 05/28/2023 12:58 PM EST Rheum Team: Appeal or P2P is recommended to facilitate PA approval since patient has been on this therapy of Orencia. Here is some information to help with the P2P. Name: Lore Figueroa Krishna : 1955 Current therapy: Orencia since 2016 Failed: MTX, HCQ, ETA, INF, NSAID, prednisone DX: RA Electronically signed by Catherine Baker [facility] at 05/28/2023 1:02 PM EST * Telephone Encounter - Gabby Jerez CPhT - 05/28/2023 12:04 PM EST Nacho, Nacho! The prior authorization for orencia has been denied. Does the office plan on appealing this decision or will the provider be seeking alternate therapy for this patient? Please let us know how you plan to proceed so we may follow up appropriately. Thank you, Gabby Jerez CPhT [facility] * Telephone Encounter - Kiki Jerry CPhT - 05/28/2023 7:39 AM EST Images from the original note were not included. Rheumatology Pre-Certification Response Denied - See below Note: Physician may complete a peer to peer within 72 business hours by calling [phone]. Lucero Fernando Medication Public Records Officer Kiki Jerry CPhT-Adv Senior C Web Developer II [facility] Services (CCPS) (formerly Telepharmacy) 05/28/2023,7:39 AM * Telephone Encounter - Rangel Mosher PHARM Tech - 05/22/2023 9:20 AM EST New or re-auth: new Patient Lore Brito needs a prior authorization for their Orencia through their [facility] insurance. ID: [id number] BIN:[id number] PCN:[id number] Target ship date is n/a. Thank you very much, Jillian Mosher Hydraulic Billet Maker, [facility] 05/22/2023 9:20 AM documented in this encounter Plan of Treatment Upcoming Encounters Date Type Department Care Team (Late st Contact Info) Description 06/28/2023 10:20 AM EST Office Visit Family Practice [facility] [address] [place] [address] Ellis Matos MD [address] [place] [address] 11/04/2023 3:40 PM EDT Office Visit Rheumatology [place] [address] [facility] [place] [address] Josh Sierra MD [facility] [employer] [place] [address] 12/12/2023 10:00 AM EDT Office Visit Orthopaedics [facility] [address] [place] [address] Mirza Chapman DO [address] [place] [address] Scheduled Procedures Name Priority Associated Diagnoses Date/Ti [...] encounter Medical Devices Implanted Type Area Truck Mechanic Device Identifier Shelf Expiration Date Model / Serial / Lot Knee X3 Ins Pos Cs Sz3 11 - [id number] Implanted:Qty: 1 on 12/10/2022 by Mirza Chapman DO at OR [facility] Left: Knee KATIE : ORTHOPAEDICS 08/26/2027 [id number]-G-[id number] / / [id number] documented as of this encounter Advance Directives Documents on File Type Date Recorded Patient Health Care Specialist 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 Question Answer Comments Discussion of Advance Directives occurred with: Patient Care Teams Retail Solar Advisor Relationship Specialty Start Date End Date Ellis Matos MD [address] [place] [address] PCP - General Family Medicine 11/24/18 documented as of this encounter
--- OUTSIDE RECORDS SUMMARY | 2023-08-24 08:32 | External Medical Summary | Summary of Care ---
Author Name Unknown Organization [facility] Address [address] [facility] [place] [address] Phone [phone] Care Team Providers Care Linotype Machinist Apprentice Name Role Phone Ellis Matos MD Primary Care Provider [phone] Reason for Visit * Reason Onset Date Comments Precert Denied 05/22/2023 Orencia Encounter Details Date Type Department Care Team (Late st Contact Info) Description 05/22/2023 Telephone Rheumatology [place] [address] [place] [address] Josh Sierra MD [facility] [place] [address] Precert Denied ( Orencia) Allergies Active Allergy Reactions Criticality Noted Date Comments Leflunomide Rash 07/08/2014 Sulfa Antibiotics Rash 01/25/2011 documented as of this encounter (statuses as of 06/06/2023) Medications Medication Sig Dispensed Refills Start Date [...] as of this encounter (statuses as of 06/06/2023) Active Problems Problem Noted Date Diagnosed Date [...] as of this encounter (statuses as of 06/06/2023) Resolved Problems Problem Noted Date Diagnosed Date [...] as of this encounter (statuses as of 06/06/2023) Immunizations Name Administration Dates Next Due COVID-19 [...] Telephone Encounter - Catherine Baker RPh - 06/06/2023 3:44 PM EST P2P Scheduled Time to Expect Call: Today Case: EOC [id number] Provided Dr. Kendrick's phone number. * Telephone Encounter - Josh [...] 8 AM-3 PM on 06/04-06/06/23 Case: EOC [id number] Phone number to be calling in: [phone] Phone Number Provided: [phone] or [phone] * Telephone Encounter - Josh Sierra MD - 05/29/2023 2:16 PM EST I do not know what that 570 number is. We have the [phone] number to give. Our clinic number is [phone] but my nurses are not always able to answer it and there is no voice mail * Telephone Encounter - Catherine Baker RPh - 05/29/2023 2:14 PM EST The primary office number I had on file which is [phone] And then I provided my phone number as an alternative if they aren't able to reach you. Is there another phone number I should provide? * Telephone Encounter - Josh Sierra MD - 05/29/2023 2:10 PM EST What number did you give them to call? * Telephone Encounter - Catherine Baker [facility] - 05/29/2023 1:59 PM EST P2P Scheduled Time to Expect Call: Anytime 8 AM-3 PM on 06/04-06/06/23 Case: EOC [id number] Phone number to be calling in: [phone] * Telephone Encounter - Josh Sierra MD - 05/28/2023 1:45 PM EST I am off this week. Would appeal as she ahs been on this for many years would good control. Catherine Baker [facility] - would you call to set up appeal? * Telephone Encounter - Catherine Baker [facility] - 05/28/2023 12:58 PM EST Rheum [...] up appropriately. Thank you, Gabby Jerez CPhT [facility] * Telephone Encounter - Kiki Jerry CPhT - 05/28/2023 7:39 AM EST Images from the original note were not included. Rheumatology Pre-Certification Response Denied - See below Note: Physician may complete a peer to peer within 72 business hours by calling [phone]. Lucero Fernando Medication Pest Control Worker Kiki Jerry CPhT-Adv Patient Financial Advocate II [facility] Pharmacy Services (CCPS) (formerly Telepharmacy) 05/28/2023,7:39 AM * Telephone Encounter - Rangel Mosher PHARM Tech - 05/22/2023 9:20 AM EST New or re-auth: new Patient Lore Brito needs a prior authorization for their Orencia through their [facility] insurance. ID: [id number] BIN:[id number] PCN:[id number] Target ship date is n/a. Thank you very much, Jillian Mosher Senior Storage Administrator, [facility] 05/22/2023 9:20 AM documented in this encounter Plan of Treatment Upcoming Encounters Date Type Department Care Team (Late st Contact Info) Description 06/28/2023 10:20 AM EST Office Visit Family Practice [facility] [address] [place] [address] Ellis Matos MD [address] [place] [address] 11/04/2023 3:40 PM EDT Office Visit Rheumatology [place] [address] [place] [address] Josh Sierra MD [facility] [employer] [place] [address] 12/12/2023 10:00 AM EDT Office Visit Orthopaedics [facility] [address] [place] [address] Mirza Chapman, [address] [place] [address] Scheduled Procedures Name Priority Associated Diagnoses Date/Ti [...] this encounter Medical Devices Implanted Type Area Game Technician Device Identifier Shelf Expiration Date Model / Serial / Lot Knee X3 Ins Pos Cs Sz3 11 - [id number] Implanted:Qty: 1 on 12/10/2022 by Mirza Chapman, DO at OR [facility] Left: Knee KATIE : ORTHOPAEDICS 08/26/2027 [id number]-[id number] / / [id number] documented as of this encounter Advance Directives Documents on File Type Date Recorded Patient Commodities Manager 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 Question Answer Comments Discussion of Advance Directives occurred with: Patient Care Teams Linotype Machinist Apprentice Relationship Specialty Start Date End Date Ellis Matos MD [address] [place] [address] PCP - General Family Medicine 11/24/18 documented as of this encounter
--- OUTSIDE RECORDS SUMMARY | 2023-08-24 08:32 | External Medical Summary | Summary of Care ---
Author Name Unknown Organization [facility] Address [address] [facility] [address] Phone [phone] Care Team Providers Care Research Software Engineer Name Role Phone Ellis Matos MD Primary Care Provider [phone] [phone] Reason for Visit * Reason Onset Date Comments Medication Refill 05/21/2023 Encounter Details Date Type Department Care Team (Late st Contact Info) Description 05/21/2023 Refill Rheumatology [place] [address] [employer] [place] [address] Bradford Briseno MD [facility] [place] [address] Rheumatoid arthritis involving multiple sites with positive rheumatoid factor (HCC) Allergies Active Allergy Reactions Criticality Noted Date Comments Leflunomide Rash 07/08/2014 Sulfa Antibiotics Rash 01/25/2011 documented as of this encounter (statuses as of 05/21/2023) Medications Medication Sig Dispensed Refills Start Date [...] THE MORNING 90 Tablet 3 08/20/2022 4 Active predniSONE 5 MG Oral Tablet (Deltasone)Indicat ions:Rheumatoid arthritis involving multiple sites with positive rheumatoid factor (HCC) take 1-2 tablets by mouth every morning if needed 100 Tablet 2 12/19/2022 Active Methotrexate 2.5 MG Oral TabletIndications: Rheumatoid [...] for Sleep. 30 Capsule 3 04/24/2023 Active HYDROcodone-Acetam inophen 5-325 MG Oral TabletIndications: [...] a week. 4 mL 11 05/21/2023 Active Orencia 125 MG/ML Subcutaneous Solution Prefilled Syringe (Abatacept)Indicat ions:Rheumatoid arthritis involving multiple sites with positive rheumatoid factor (HCC) Inject 125 mg under the skin once a week. 4 mL 11 05/07/2022 3 Discontinue d(Refill) documented as of this encounter (statuses as of 05/21/2023) Active Problems Problem Noted Date Diagnosed Date [...] as of this encounter (statuses as of 05/21/2023) Resolved Problems Problem Noted Date Diagnosed Date [...] as of this encounter (statuses as of 05/21/2023) Immunizations Name Administration Dates Next Due COVID-19 [...] Telephone Encounter - Bradford Briseno MD - 05/21/2023 3:53 PM ESTSigned Prescriptions: Disp Refills Orencia 125 MG/ML Subcutaneous Solution Pr*4 mL 11 Sig: Inject 125 mg under the skin once a week. Authorizing Provider: BRADFORD BRISENO * Telephone Encounter - Mera Chavis LPN - 05/21/2023 9:47 AM EST Pending Prescriptions: Disp Refills Orencia 125 MG/ML Subcutaneous Solution P*4 mL 11 Sig: Inject 125 mg under the skin once a week. Last Visit: 05/16/2023 (in office), Visit date not found (telemedicine) Next Visit: 11/04/2023 Patient Active Problem List Diagnosis Code HTN, goal below 130/80 I10 Rheumatoid arthritis involving multiple sites with positive rheumatoid factor (HCC) M05.79 MEDICATION USE AGREEMENT EE4591 Vasculopathy I99.9 Dyslipidemia E78.5 Primary insomnia F51.01 Long-term use of immunosuppressant medication Z79.60 Gastroesophageal reflux disease with esophagitis K21.00 History of CVA (cerebrovascular accident) Z86.73 Reactive airway disease without complication J45.909 Obesity, Class II, BMI 35-39.9, isolated (see actual BMI) E66.9 S/P total knee arthroplasty, left Z96.652 documented in this encounter Plan of Treatment Upcoming Encounters Date Type Department Care Team (Late st Contact Info) Description 06/28/2023 10:20 AM EST Office Visit [facility] [address] [place] [address] Ellis Matos MD [address] [place] [address] 11/04/2023 3:40 PM EDT Office Visit Rheumatology [place] [address] [employer] [place] [address] Bradford Briseno MD [address] [place] [address] [place] [address] 12/12/2023 10:00 AM EDT Office Visit Orthopaedics [facility] [address] [place] [address] Mirza Chapman, [address] [place] [address] Scheduled Procedures Name Priority Associated Diagnoses Date/Ti [...] this encounter Medical Devices Implanted Type Area Citrix Architect Device Identifier Shelf Expiration Date Model / Serial / Lot Knee X3 Ins Pos Cs Sz3 11 - [id number] Implanted:Qty: 1 on 12/10/2022 by Mirza Chapman DO at OR [facility] Left: Knee KATIE : ORTHOPAEDICS 08/26/2027 [id number] / / [id number] documented as of this encounter Visit Diagnoses Diagnosis Rheumatoid arthritis involving multiple sites with positive rheumatoid factor (HCC) documented in this encounter Advance Directives Documents on File Type Date Recorded Patient Post Framer 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 Question Answer Comments Discussion of Advance Directives occurred with: Patient Care Teams Research Software Engineer Relationship Specialty Start Date End Date Ellis Matos MD [address] [facility] [place] [address] PCP - General Family Medicine 11/24/18 documented as of this encounter
--- OUTSIDE RECORDS SUMMARY | 2023-08-24 08:32 | External Medical Summary | Summary of Care ---
Author Name Unknown Organization [facility] Address [address] [facility] [place] [address] Phone [phone] Care Team Providers Care Manager Port Name Role Phone Ellis Matos MD Primary Care Provider +1 [phone] Reason for Visit * Reason Onset Date Comments Precert Denied 05/22/2023 Orencia Encounter Details Date Type Department Care Team (Late st Contact Info) Description 05/22/2023 Telephone Rheumatology [place] [address] [place] [address] Josh Sierra MD [facility] [place] [address] Precert Denied ( Orencia) Allergies Active Allergy Reactions Criticality Noted Date Comments Leflunomide Rash 07/08/2014 Sulfa Antibiotics Rash 01/25/2011 documented as of this encounter (statuses as of 06/07/2023) Medications Medication Sig Dispensed Refills Start Date [...] as of this encounter (statuses as of 06/07/2023) Active Problems Problem Noted Date Diagnosed Date [...] as of this encounter (statuses as of 06/07/2023) Resolved Problems Problem Noted Date Diagnosed Date [...] as of this encounter (statuses as of 06/07/2023) Immunizations Name Administration Dates Next Due COVID-19 [...] Time to Expect Call: Today Case: EOC [id number] Provided Dr. Kendrick's phone number. Flagged as high priority as this 3rd attempt. * Telephone Encounter - Catherine Baker RP - 06/06/2023 3:44 PM EST P2P Scheduled Time to Expect Call: Today Case: EOC [id number] Provided Dr. Canales phone number. * Telephone Encounter - Josh Sierra MD - 06/06/2023 12:12 PM EST I so far have not received any calls regarding this denial - I can give my cell number through teams (Do not want it in the chart) for them to call that * Telephone Encounter - Catherine Baker [facility] - 05/29/2023 2:24 PM EST P2P Scheduled Called back to provide office numbers, thanks! Time to Expect Call: Anytime 8 AM-3 PM on 06/04-06/06/23 Case: EOC [id number] Phone number to be calling in: [phone] Phone Number Provided: [phone] or [phone] * Telephone Encounter - Josh Sierra MD - 05/29/2023 2:16 PM EST I do not know what that 570 number is. We have the [phone] number to give. Our clinic number is [phone] but my nurses are not always able to answer it and there is no voice mail * Telephone Encounter - Catherine Baker [facility] - 05/29/2023 2:14 PM EST The primary office number I had on file which is [phone] And then I provided my phone number as an alternative if they aren't able to reach you. Is there another phone number I should provide? * Telephone Encounter - Josh Sierra MD - 05/29/2023 2:10 PM EST What number did you give them to call? * Telephone Encounter - Catherine Baker RP - 05/29/2023 1:59 PM EST P2P Scheduled Time to Expect Call: Anytime 8 AM-3 PM on 06/04-06/06/23 Case: EOC [id number] Phone number to be calling in: [phone] * Telephone Encounter - Josh Sierra MD - 05/28/2023 1:45 PM EST I am off this week. Would appeal as she ahs been on this for many years would good control. Catherine Baker [facility] - would you call to [...] up appropriately. Thank you, Gabby Jerez CPhT [facility] * Telephone Encounter - Kiki Jerry CPhT - 05/28/2023 7:39 AM EST Images from the original note were not included. Rheumatology Pre-Certification Response Denied - See below Note: Physician may complete a peer to peer within 72 business hours by calling [phone]. Lucero Fernando Medication Stunner And Shackler Kiki Jerry CPhT-Adv Carbonizer II Centralized Clinical Pharmacy Services (CCPS) (formerly Telepharmacy) 05/28/2023,7:39 AM * Telephone Encounter - Rangel Mosher PHARM Tech - 05/22/2023 9:20 AM EST New or re-auth: new Patient Lore Brito needs a prior authorization for their Orencia through their [facility] insurance. ID: [id number] BIN:[id number] PCN:[id number] Target ship date is n/a. Thank you very much, Jillian Mosher Weekend Caregiver, Yasmin [facility] 05/22/2023 9:20 AM documented in this encounter Plan of Treatment Upcoming Encounters Date Type Department Care Team (Late st Contact Info) Description 06/28/2023 10:20 AM EST Office Visit [address] [place] [address] Ellis Matos MD [address] [place] [address] 11/04/2023 3:40 PM EDT Office Visit Rheumatology [place] [address] [facility] [place] [address] Josh Sierra MD [facility] [employer] [place] [address] 12/12/2023 10:00 AM EDT Office Visit Orthopaedics [facility] [address] [place] [address] Mirza Chapman DO [address] [place] [address] Scheduled Procedures Name Priority Associated Diagnoses Date/Ti [...] Additional history exists Lipid Panel 05/13/2028 05/13/2023, 083 06/2022, 12/05/2021, Additional history exists DXA Scan [...] this encounter Medical Devices Implanted Type Area Chemical Operations And Training Device Identifier Shelf Expiration Date Model / Serial / Lot Knee X3 Ins Pos Cs Sz3 11 - [id number] Implanted:Qty: 1 on 12/10/2022 by Mirza Chapman, DO at OR 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 Question Answer Comments Discussion of Advance Directives occurred with: Patient Care Teams Manager Port Relationship Specialty Start Date End Date Ellis Matos MD [address] [place] [address] PCP - General Family Medicine 11/24/18 documented as of this encounter
--- OUTSIDE RECORDS SUMMARY | 2023-08-24 08:32 | External Medical Summary | Summary of Care ---
Author Name Unknown Organization [facility] Address [address] [facility] [place] [address] Phone [phone] Care Team Providers Care Entry Level Sales Representative Name Role Phone Ellis Matos MD Primary Care Provider [phone] [phone] Reason for Visit * Reason Onset Date Comments Precert Approved 05/22/2023 [place] Encounter Details Date Type Department Care Team (Late st Contact Info) Description 05/22/2023 Telephone Rheumatology [place] [id number] [place] [address] Josh Sierra MD [facility] [place] [address] Precert Approved ( [place]ia) Allergies Active Allergy Reactions Criticality Noted Date Comments Leflunomide Rash 07/08/2014 Sulfa Antibiotics Rash 01/25/2011 documented as of this encounter (statuses as of 06/14/2023) Medications Medication Sig Dispensed Refills Start Date [...] as of this encounter (statuses as of 06/14/2023) Active Problems Problem Noted Date Diagnosed Date Hx of nonmelanoma skin cancer 06/13/2023 Overview: basal cell carcinoma (mid forehead 12/22, L shinto hairline 12/22) S/P total knee arthroplasty, left [...] as of this encounter (statuses as of 06/14/2023) Resolved Problems Problem Noted Date Diagnosed Date [...] as of this encounter (statuses as of 06/14/2023) Immunizations Name Administration Dates Next Due COVID-19 [...] Notes * Telephone Encounter - Anni Easley, business system manager - 06/13/2023 1:08 PM EST Patients insurance would like to inform the office that Orencia is approved until from 05-24-23 to 06-13-24. Patient and pharmacy made aware by elif . Information will be faxed to the office. Thank you, Anni Easley,[facility] Delivery Assistant II Centralized Clincal Pharmacy Services (CCPS) (formerly Telepharmacy) 06/13/2023,1:08 PM * Telephone Encounter - Snaa Chavis LPN - 06/10/2023 4:09 PM EST Faxed to [facility] * Telephone Encounter - Catherine Baker RPh [...] Time to Expect Call: Today Case: EOC [id number] Provided Dr. Tovars phone number. Flagged as high priority as this 3rd attempt. * Telephone Encounter - Catherine Baker RP - 06/06/2023 3:44 PM EST P2P Scheduled Time to Expect Call: Today Case: EOC [id number] Provided Dr. Tovars phone number. * Telephone [...] 8 AM-3 PM on 06/04-06/06/23 Case: EOC [id number] Phone number to be calling in: [phone] Phone Number Provided: [phone] or [phone] * Telephone Encounter - Josh Sierra MD - 05/29/2023 2:16 PM EST I do not know what that 570 number is. We have the [phone] number to give. Our clinic number is [phone] but my nurses are not always able to answer it and there is no voice mail * Telephone Encounter - Catherine Baker RPh - 05/29/2023 2:14 PM EST The primary office number I had on file which is [phone] And then I provided my phone number [...] 8 AM-3 PM on 06/04-06/06/23 Case: EOC [id number] Phone number to be calling in: [phone] * Telephone Encounter - Josh Sierra MD - 05/28/2023 1:45 PM EST I am off this week. Would appeal as she ahs been on this for many years would good control. Catherine Baker [facility] - would you call to set [...] up appropriately. Thank you, Gabby Jerez CPhT [facility] * Telephone Encounter - Kiki Jerry CPhT - 05/28/2023 7:39 AM EST Images from the original note were not included. Rheumatology Pre-Certification Response Denied - See below Note: Physician may complete a peer to peer within 72 business hours by calling [phone]. Lucero Fernando Medication Finishing Range Operator Kiki Jerry CPhT-Adv Media Consultant II Centralized Clinical Pharmacy Services (CCPS) (formerly Telepharmacy) 05/28/2023,7:39 AM * Telephone Encounter - Rangel Mosher PHARM Tech - 05/22/2023 9:20 AM EST New or re-auth: new Patient Lore Brito needs a prior authorization for their Orencia through their [facility] insurance. ID: [id number] BIN:[id number] PCN:[id number] Target ship date is n/a. Thank you very much, Jillian Mosher Delivery Assistant, Yasmin [facility] 05/22/2023 9:20 AM documented in this encounter Plan of Treatment Upcoming Encounters Date Type Department Care Team (Late st Contact Info) Description 06/20/2023 9:20 AM EST Office Visit Dermatology, [place] [address] [address] [facility] [place] [address] Diana Olivares PA-C [address] [place] [address] [place] [address] 06/28/2023 10:20 AM EST Office Visit Family Practice [facility] [address] [place] [address] Ellis Matos MD [address] [place] [address] 07/29/2023 12:00 PM EST Imaging Radiology [facility] 1st [facility] [address] [place] [address] 11/04/2023 3:40 PM EDT Office Visit Rheumatology [place] [address] [facility] [place] [address] Josh Sierra MD [facility] [place] [address] 12/12/2023 10:00 AM EDT Office Visit Orthopaedics [facility] [address] [place] [address] Mirza Chapman DO [address] [place] [address] Scheduled Procedures Name Priority Associated Diagnoses Date/Ti [...] 09/17/2016, Additional history exists Mammogram 07/25/2023 07/25/2022, 09/02/2020, 10/30/2018, Additional history exists COLONOSCOPY-EVERY 5 YRS [...] this encounter Medical Devices Implanted Type Area Neuroscientist Device Identifier Shelf Expiration Date Model / Serial / Lot Knee X3 Ins Pos Cs Sz3 11 - [id number] Implanted:Qty: 1 on 12/10/2022 by Mirza Chapman, at OR [facility] Left: Knee KATIE : ORTHOPAEDICS 08/26/2027 5531-G-311 -[id number] / / [id number] documented as of this encounter Advance Directives Documents on File Type Date Recorded 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 Question Answer Comments Discussion of Advance Directives occurred with: Patient Care Teams Entry Level Sales Representative Relationship Specialty Start Date End Date Ellis Matos MD [address] [place] [address] PCP - General Family Medicine 11/24/18 documented as of this encounter
--- OUTSIDE RECORDS SUMMARY | 2023-08-24 08:32 | External Medical Summary | Summary of Care ---
Author Name Unknown Organization [facility] Address [address] [facility] [place] [address] Phone [phone] Care Team Providers Care Button Station Worker Name Role Phone Ellis Matos MD Primary Care Provider +1 [phone] Reason for Visit * Reason Onset Date Comments Precert Approved 05/22/2023 [place] Encounter Details Date Type Department Care Team (Late st Contact Info) Description 05/22/2023 Telephone Rheumatology [place] [address] [place] [address] Josh Sierra MD [facility] [place] [address] Precert Approved ( [place]) Allergies Active Allergy Reactions Criticality Noted Date [...] basal cell carcinoma (mid forehead 12/22, L oriental orthodox hairline 12/22) S/P total knee arthroplasty, left [...] Notes * Telephone Encounter - Anni Easley, welding machine operator - 06/13/2023 1:08 PM EST Patients insurance would like to inform the office that Orencia is approved until from 05-24-23 to 06-13-24. Patient and pharmacy made aware by elif . Information will be faxed to the office. Thank you, Anni Easley,[facility] Product Sales Engineer II Centralized Clincal Pharmacy Services (CCPS) (formerly Telepharmacy) 06/13/2023,1:08 PM * Telephone Encounter - Sana Chavis LPN - 06/10/2023 4:09 PM EST Faxed to [facility] * Telephone Encounter - Catherine Baker RPh [...] Time to Expect Call: Today Case: EOC [id number] Provided Dr. Tovars phone number. Flagged as high priority as this 3rd attempt. * Telephone Encounter - Catherine Baker RP - 06/06/2023 3:44 PM EST P2P Scheduled Time to Expect Call: Today Case: EOC [id number] Provided Dr. Tovars phone number. * Telephone [...] 8 AM-3 PM on 06/04-06/06/23 Case: EOC [id number] Phone number to be calling in: [phone] Phone Number Provided: [phone] or [phone] * Telephone Encounter - Josh Sierra MD - 05/29/2023 2:16 PM EST I do not know what that 570 number is. We have the [phone] number to give. Our clinic number is [phone] but my nurses are not always able to answer it and there is no voice mail * Telephone Encounter - Catherine Baker RPh - 05/29/2023 2:14 PM EST The primary office number I had on file which is [phone] And then I provided my phone number [...] 8 AM-3 PM on 06/04-06/06/23 Case: EOC [id number] Phone number to be calling in: [phone] * Telephone Encounter - Josh Sierra MD - 05/28/2023 1:45 PM EST I am off this week. Would appeal as she ahs been on this for many years would good control. Catherine Baker [facility] - would you call to set up [...] up appropriately. Thank you, Gabby Jerez CPhT [facility] * Telephone Encounter - Kiki Jerry CPhT - 05/28/2023 7:39 AM EST Images from the original note were not included. Rheumatology Pre-Certification Response Denied - See below Note: Physician may complete a peer to peer within 72 business hours by calling [phone]. Lucero Fernando Medication Jewelry Bearing Maker Kiki Jerry CPhT-Adv Auto Transmission Technician II Centralized Clinical Pharmacy Services (CCPS) (formerly Telepharmacy) 05/28/2023,7:39 AM * Telephone Encounter - Rangel Mosher PHARM Tech - 05/22/2023 9:20 AM EST New or re-auth: new Patient Lore Brito needs a prior authorization for their Orencia through their [facility] insurance. ID: [id number] BIN:[id number] PCN:[id number] Target ship date is n/a. Thank you very much, Jillian Mosher Product Sales Engineer, Yasmin [facility] 05/22/2023 9:20 AM documented in this encounter Plan of Treatment Upcoming Encounters Date Type Department Care Team (Late st Contact Info) Description 06/20/2023 9:20 AM EST Office [facility] D[facility]atology[facility] [place] [address] [address] [facility] [address] Diana Olivares PA-C [address] [place] [address] [place] [address] 06/28/2023 10:20 AM EST Office Visit Family Practice [facility] [address] [place] [address] Ellis Matos MD [address] [place] [address] 07/29/2023 12:00 PM EST Imaging Radiology [facility] 1st [facility] [address] [place] [address] 11/04/2023 3:40 PM EDT Office Visit Rheumatology [place] [address] [facility] [place] [address] Josh Sierra MD [facility] [employer] [facility] [place] [address] 12/12/2023 10:00 AM EDT Office Visit Orthopaedics [facility] [address] [place] [address] Mirza Chapman DO [address] [place] [address] Scheduled Procedures Name Priority Associated Diagnoses Date/Ti [...] this encounter Medical Devices Implanted Type Area Jig Inspector Device Identifier Shelf Expiration Date Model / Serial / Lot Knee X3 Ins Pos Cs Sz3 11 - [id number] Implanted:Qty: 1 on 12/10/2022 by Mirza Chapman, at OR [facility] Left: Knee KATIE : ORTHOPAEDICS 08/26/2027 5531-G-311 -[id number] / / [id number] documented as of this encounter Advance Directives Documents on File Type Date Recorded 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 Question Answer Comments Discussion of Advance Directives occurred with: Patient Care Teams Button Station Worker Relationship Specialty Start Date End Date Ellis Matos MD [address] [place] [address] PCP - General Family Medicine 11/24/18 documented as of this encounter
--- OUTSIDE RECORDS SUMMARY | 2023-08-24 08:32 | External Medical Summary | Summary of Care ---
Author Name Unknown Organization [facility] Address [address] [facility] [place] [address] Phone [phone] Care Team Providers Care Steam Trap Worker Name Role Phone Ellis Matos MD Primary Care Provider [phone] [phone] Reason for Visit * Reason Onset Date Comments Precert Denied 05/22/2023 Orencia Encounter Details Date Type Department Care Team (Late st Contact Info) Description 05/22/2023 Telephone Rheumatology [place] [address] [place] [address] Josh Sierra MD [facility] [place] [address] Precert Denied ( Orencia) Allergies Active Allergy [...] appeal * Telephone Encounter - Catherine Baker [facility] - 06/07/2023 10:49 AM EST P2P Scheduled Time to Expect Call: Today Case: EOC [id number] Provided Dr. Tovars phone number. Flagged as high priority as this 3rd attempt. * Telephone Encounter - Catherine Baker [facility] - 06/06/2023 3:44 PM EST P2P Scheduled Time to Expect Call: Today Case: EOC [id number] Provided Dr. Tovars phone number. * Telephone Encounter - Josh Sierra MD - 06/06/2023 12:12 PM EST I so far have not received any calls regarding this denial - I can give my cell number through teams (Do not want it in the chart) for them to call that * Telephone Encounter - Catherine Baker [facility] - 05/29/2023 2:24 PM EST P2P Scheduled Called back to provide office numbers, thanks! Time to Expect Call: Anytime 8 AM-3 PM on 06/04-06/06/23 Case: EOC [id number] Phone number to be calling in: [phone] Phone Number Provided: [phone] or [phone] * Telephone Encounter - Josh Sierra MD - 05/29/2023 2:16 PM EST I do not know what that 570 number is. We have the [phone] number to give. Our clinic number is [phone] but my nurses are not always able to answer it and there is no voice mail * Telephone Encounter - Catherine Baker RPh - 05/29/2023 2:14 PM EST The primary office number I had on file which is [phone] And then I provided my phone number as an alternative if they aren't able to reach you. Is there another phone number I should provide? * Telephone Encounter - Josh Sierra MD - 05/29/2023 2:10 PM EST What number did you give them to call? * Telephone Encounter - Catherine Baker [facility] - 05/29/2023 1:59 PM EST P2P Scheduled Time to Expect Call: Anytime 8 AM-3 PM on 06/04-06/06/23 Case: EOC [id number] Phone number to be calling in: [phone] * Telephone Encounter - Josh Sierra MD - 05/28/2023 1:45 PM EST I am off this week. Would appeal as she ahs been on this for many years would good control. Catherine Baker [facility] - would you call to set up [...] up appropriately. Thank you, Gabby Jerez CPhT [facility] * Telephone Encounter - Kiki Jerry CPhT - 05/28/2023 7:39 AM EST Images from the original note were not included. Rheumatology Pre-Certification Response Denied - See below Note: Physician may complete a peer to peer within 72 business hours by calling [phone]. Lucero Fernando Medication Manager Product Kiki Jerry CPhT-Adv Special Education Director II Centralized Clinical Pharmacy Services (CCPS) (formerly Telepharmacy) 05/28/2023,7:39 AM * Telephone Encounter - Rangel Mosher, vocational placement specialist - 05/22/2023 9:20 AM EST New or re-auth: new Patient Lore Brito needs a prior authorization for their Orencia through their [facility] insurance. ID: [id number] BIN:[id number] PCN:[id number] Target ship date is n/a. Thank you very much, Jillian Mosher Clinical Services Director, Yasmin [facility] 05/22/2023 9:20 AM documented in this encounter Plan of Treatment Upcoming Encounters Date Type Department Care Team (Late st Contact Info) Description 06/28/2023 10:20 AM EST Office Visit Family Practice [facility] [address] [place] [address] Ellis Matos MD [address] [place] [address] 11/04/2023 3:40 PM EDT Office [address]umatology [address] [place] [address] Josh Sierra MD [facility] [place] [address] 12/12/2023 10:00 AM EDT Office Visit Orthopaedics [facility] [address] [place] [address] Mirza Chapman DO [address] [place] [address] Scheduled Procedures Name Priority Associated Diagnoses Date/Ti [...] this encounter Medical Devices Implanted Type Area Flush Tester Device Identifier Shelf Expiration Date Model / Serial / Lot Knee X3 Ins Pos Cs Sz3 11 - [id number] Implanted:Qty: 1 on 12/10/2022 by Mirza Chapman, at OR [facility] Left: Knee KATIE : ORTHOPAEDICS 08/26/2027 5531-G-311 -[id number] / / [id number] documented as of this encounter Advance Directives Documents on File Type Date Recorded Patient Service Tech/Welder 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 Question Answer Comments Discussion of Advance Directives occurred with: Patient Care Teams Steam Trap Worker Relationship Specialty Start Date End Date Ellis Matos MD [address] [place] [address] PCP - General Family Medicine 11/24/18 documented as of this encounter
--- OUTSIDE RECORDS SUMMARY | 2023-08-24 08:32 | External Medical Summary | Summary of Care ---
Author Name Unknown Organization [facility] Address [address] [facility] [place] [address] Phone [phone] Care Team Providers Care Financial Planning Consultant Name Role Phone Ellis Matos MD Primary Care Provider [phone] Reason for Visit * Reason Onset Date Comments Precert Denied 05/22/2023 Orencia Encounter Details Date Type Department Care Team (Late st Contact Info) Description 05/22/2023 Telephone Rheumatology [place] [address] [place] [address] Josh Sierra MD [facility] [place] [address] Precert Denied ( Orencia) Allergies Active Allergy [...] encounter Miscellaneous Notes * Telephone Encounter - Sana Chavis LPN - 06/10/2023 3:43 PM EST Do you have a fax # where we can fax the letter to? * Telephone Encounter - Josh Sierra MD - 06/10/2023 2:51 PM EST Please fax and letter for expedited appeal * Telephone Encounter - Catherine Baker [facility] - 06/10/2023 2:16 PM EST Images from the original note were not included. Despite multiple attempts, P2P has not been received via call. Would now Suggest submitting an appeal * Telephone Encounter - Catherine Baker RP - 06/07/2023 10:49 AM EST P2P Scheduled Time to Expect Call: Today Case: EOC [id number] Provided Dr. Kendrick's phone number. Flagged as high priority as this 3rd attempt. * Telephone Encounter - Catherine Baker [facility] - 06/06/2023 3:44 PM EST P2P Scheduled Time to Expect Call: Today Case: EOC [id number] Provided Dr. Kendrick's phone number. * Telephone Encounter - Josh Sierra MD - 06/06/2023 12:12 PM EST I so far have not received any calls regarding this denial - I can give my cell number through teams (Do not want it in the chart) for them to call that * Telephone Encounter - Catherine Baker [facility] - 05/29/2023 2:24 PM EST P2P Scheduled Called back to provide office numbers, thanks! Time to Expect Call: Anytime 8 AM-3 PM on 06/04-06/06/23 Case: EOC [id number] Phone number to be calling in: [phone] Phone Number Provided: [phone] or [phone] * Telephone Encounter - Josh Sierra MD - 05/29/2023 2:16 PM EST I do not know what that 570 number is. We have the [phone] number to give. Our clinic number is [phone] but my nurses are not always able to answer it and there is no voice mail * Telephone Encounter - Catherine Baker RPh - 05/29/2023 2:14 PM EST The primary office number I had on file which is [phone] And then I provided my phone number [...] 8 AM-3 PM on 06/04-06/06/23 Case: EOC [id number] Phone number to be calling in: [phone] * Telephone Encounter - Josh Sierra MD - 05/28/2023 1:45 PM EST I am off this week. Would appeal as she ahs been on this for many years would good control. Catherine Baker [facility] - would you call to set up appeal? * Telephone Encounter - Catherine Baker [facility] - 05/28/2023 12:58 PM EST Rheum Team: Appeal or P2P is recommended to facilitate PA approval since patient has been on this therapy of Orencia. Here is some information to help with the P2P. Name: Lore Brito : 1955 Current therapy: Orencia since 2015 Failed: MTX, HCQ, ETA, INF, NSAID, prednisone [...] appropriately. Thank you, Gabby Jerez CPhT [facility] * Telephone Encounter - Kiki Jerry CPhT - 05/28/2023 7:39 AM EST Images from the original note were not included. Rheumatology Pre-Certification Response Denied - See below Note: Physician may complete a peer to peer within 72 business hours by calling [phone]. Lucero Fernando Medication Senior Radiation Therapist Kiki Jerry CPhT-Adv Fermenting Cellars Receiver II Centralized Clinical Pharmacy Services (CCPS) (formerly Telepharmacy) 05/28/2023,7:39 AM * Telephone Encounter - Rangel Mosher, clinical project assistant - 05/22/2023 9:20 AM EST New or re-auth: new Patient Lore Brito needs a prior authorization for their Orencia through their [facility] insurance. ID: [id number] BIN:[id number] PCN:[id number] Target ship date is n/a. Thank you very much, Jillian Mosher Document Management Analyst, [facility] 05/22/2023 9:20 AM documented in this encounter Plan of Treatment Upcoming Encounters Date Type Department Care Team (Late st Contact Info) Description 06/28/2023 10:20 AM EST Office Visit Family Practice [facility] [address] [place] [address] Ellis Matos MD [address] [place] [address] 11/04/2023 3:40 PM EDT Office Visit Rheumatology [address] [place] [address] Josh Sierra MD [address] [place] [address] [place] [address] 12/12/2023 10:00 AM EDT Office Visit Orthopaedics [facility] [address] [place] [address] Mirza Chapman DO [address] [place] [address] Scheduled Procedures Name Priority Associated Diagnoses Date/Ti [...] this encounter Medical Devices Implanted Type Area Press Writer Device Identifier Shelf Expiration Date Model / Serial / Lot Knee X3 Ins Pos Cs Sz3 11 - [id number] Implanted:Qty: 1 on 12/10/2022 by Mirza Chapman, DO at OR [facility] Left: Knee KATIE : ORTHOPAEDICS 08/26/2027 5531-G-311 -[id number] / / [id number] documented as of this encounter Advance Directives Documents on File Type Date Recorded Patient Bed Manager 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 Question Answer Comments Discussion of Advance Directives occurred with: Patient Care Teams Financial Planning Consultant Relationship Specialty Start Date End Date Ellis Matos MD [address] [facility] [place] [address] PCP - General Family Medicine 11/24/18 documented as of this encounter
--- OUTSIDE RECORDS SUMMARY | 2023-08-24 08:32 | External Medical Summary | Summary of Care ---
Author Name Unknown Organization [facility] Address [address] [facility] [place] [address] Phone [phone] Care Team Providers Care Skin Diving Teacher Name Role Phone Ellis Matos MD Primary Care Provider [phone] Reason for Visit * Reason Comments eRx-Medication Refill Encounter Details Date Type Department Care Team (Late st Contact Info) Description 05/15/2023 Refill Rheumatology [place] [address] [address] [place] [address] Bradford Briseno MD [facility] [place] [address] Allergies Active Allergy Reactions Criticality Noted Date Comments Leflunomide Rash 07/08/2014 Sulfa Antibiotics Rash 01/25/2011 documented as of this encounter (statuses as of 05/16/2023) Medications Medication Sig Dispensed Refills Start Date [...] for Wheezing. 18 g 1 10/13/2021 Active Orencia 125 MG/ML Subcutaneous Solution Prefilled Syringe (Abatacept)Indica tions:Rheumatoid arthritis involving multiple sites with positive rheumatoid factor (HCC) Inject 125 mg under the skin once a week. 4 mL 11 05/07/2022 Active hydroCHLOROthiazi de 25 MG Oral Tablet [...] 4 Active predniSONE 5 MG Oral Tablet (Deltasone)Indica tions:Rheumatoid arthritis involving multiple sites with positive rheumatoid factor (HCC) take 1-2 tablets by mouth every morning if needed 100 Tablet 2 12/19/2022 Active Methotrexate 2.5 MG Oral TabletIndications :Rheumatoid [...] for Sleep. 30 Capsule 3 04/24/2023 Active HYDROcodone-Aceta minophen 5-325 MG Oral TabletIndications :Rheumatoid arthritis involving multiple sites with positive rheumatoid factor (HCC) Take 1 Tablet by mouth every 6 hours as needed for Pain, Moderate. For ongoing therapy. May fill 04/24/23 or later 120 Tablet 0 04/24/2023 Active Hydroxychloroquin e Sulfate 200 MG [...] once daily 90 Tablet 3 05/16/2023 Active Folic Acid 1 MG Oral Tablet take 1 tablet by mouth once daily 90 Tablet 3 05/11/2022 3 Discontinued documented as of this encounter (statuses as of 05/16/2023) Active Problems Problem Noted Date Diagnosed Date [...] as of this encounter (statuses as of 05/16/2023) Resolved Problems Problem Noted Date Diagnosed Date [...] as of this encounter (statuses as of 05/16/2023) Immunizations Name Administration Dates Next Due COVID-19 [...] Miscellaneous Notes * Telephone Encounter - Isacc Nova [facility] - 05/16/2023 12:23 PM ESTSigned Prescriptions: Disp Refills Folic Acid 1 MG Oral Tablet 90 Tab*3 Sig: take 1 tablet by mouth once dailyAuthorizing Provider: BRADFORD BRISENO User: ISACC NOVA * Telephone Encounter - Isacc Nova RPh - 05/16/2023 12:23 PM EST Rheumatology: Refill Request(s) Per review of the refill parameters, Medication was refilled Isacc Nova RPh [facility] Clinical Pharmacist Rheumatology Department 05/16/2023,12:23 PM * Telephone Encounter - Thiago Winters - 05/15/2023 2:11 PM ESTPending Prescriptions: Disp Refills Folic Acid 1 MG Oral Tablet [Pharmacy Med *90 Tab*3 Sig: take 1 tablet by mouth once daily * Telephone Encounter - Thiago Winters - 05/15/2023 2:09 PM EST Did you pend patient's preferred pharmacy and medication before forwarding?yes Pharmacy: [id number] Pending Prescriptions: Disp Refills Folic Acid 1 MG Oral Tablet [Pharmacy Med*90 Tab*3 Sig: take 1 tablet by mouth once daily Last Visit: 07/25/2022 (in office), Visit date not found (telemedicine) Next Visit: 05/16/2023 If no future appointments scheduled, and last appointment is greater than a year ago, please schedule patient for a follow-up appointment Last date the medication was ordered: 12/14/2022 Is this request for a controlled substance?No Urine Drug Screen: Results for orders placed or performed in visit on 08/02/21 PAIN MANAGEMENT DRUG PANEL, URINE W/ INTERPRETATION Result Value Compliance Interpretation Based on the medication information provided: The presence of hydrocodone is CONSISTENT with hydrocodone use. Please note hydrocodone metabolites, hydromorphone and dihydrocodeine, are present but at concentrations below the limit of quantitation. The presence of temazepam and oxazepam is CONSISTENT with temazepam use. Amphetamine Negative Benzodiazepines Refer to confirmation results (A) Cannabinoids Negative Cocaine Metabolite Negative Hydrocodone / Hydromorphone Refer to confirmation results (A) Methadone Metabolite Negative Morphine / Codeine Negative Oxycodone / Oxymorphone Negative Valid Interpretation Normal Creatinine SIXTO 22 Narrative Cutoff Concentrations: Drug Level Amphetamines 500 ng/mL Benzodiazepines 100 ng/mL Cannabinoids 50 ng/mL Cocaine Metabolite 150 ng/mL Hydrocodone / Hydromorphone 300 ng/mL Methadone [...] Labs: Lab Results Component Value Date/Time CREAT 0.7 01/31/2023 10:54 AM CREAT 1.0 05/31/2020 03:59 PM POTASSIUM 4.2 01/31/2023 10:54 AM POTASSIUM 4.4 05/31/2020 03:59 PM LDLCALC 119 05/13/2023 11:39 AM LDLCALC 148 (H) 11/10/2019 03:32 PM LDLDIRECT NOT APPLICABLE 11/10/2019 03:32 PM ALT 17 01/31/2023 10:54 AM ALT 24 05/31/2020 03:59 PM HGBA1C 5.4 11/20/2022 11:26 AM documented in this encounter Plan of Treatment Upcoming Encounters Date Type Department Care Team (Late st Contact Info) Description 06/28/2023 10:20 AM EST Office Visit Family Practice [facility] [address] [place] [address] Ellis Matos MD [address] [place] [address] 11/04/2023 3:40 PM EDT Office Visit Rheumatology [place] [address] [address] [place] [address] Bradford Briseno MD [facility] [place] [address] 12/12/2023 10:00 AM EDT Office Visit Orthopaedics [facility] [address] [place] [address] Mirza Chapman DO [address] [place] [address] Scheduled Procedures Name Priority Associated Diagnoses Date/Ti [...] this encounter Medical Devices Implanted Type Area U.[place]. [employer] Device Identifier Shelf Expiration Date Model / Serial / Lot Knee X3 Ins Pos Cs Sz3 11 - [id number] Implanted:Qty: 1 on 12/10/2022 by Mirza Chapman, DO at OR [facility] Left: Knee KATIE : ORTHOPAEDICS 08/26/2027 [id number] / / [id number] documented as of this encounter Advance Directives Documents on File Type Date Recorded Patient Rn Complex Care 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 Question Answer Comments Discussion of Advance Directives occurred with: Patient Care Teams Skin Diving Teacher Relationship Specialty Start Date End Date Ellis Matos MD [address] [place] [address] PCP - General Family Medicine 11/24/18 documented as of this encounter
--- OUTSIDE RECORDS SUMMARY | 2023-08-24 08:32 | External Medical Summary | Summary of Care ---
Author Name Unknown Organization [facility] Address [address] [facility] [place] [address] Phone [phone] Care Team Providers Care Drinking Water Technician Name Role Phone Ellis Matos MD Primary Care Provider [phone] Reason for Visit * Reason Comments Rheum Follow Up Follow up - RA Encounter Details Date Type Department Care Team (Latest Contact Info) Description 05/16/2023 9:20 AM EST Office Visit Rheumatology [place] [phone] [place] [address] Josh Sierra MD [facility] [place] [address] Rheumatoid arthritis involving multiple sites with positive rheumatoid factor (HCC)*; Long-term use of immunosuppressant medication; Vasculopathy; MEDICATION USE AGREEMENT Allergies Active Allergy Reactions Criticality Noted Date [...] a week. 4 mL 11 05/07/2022 Active Folic Acid 1 MG Oral Tablet take 1 tablet by mouth once daily 90 Tablet 3 05/11/2022 Active hydroCHLOROthiazid e 25 MG Oral Tablet [...] once daily 90 Tablet 2 04/24/2023 Active Breo Ellipta 100-25 MCG/ACT Inhalation Aerosol Powder Breath Activated inhale 1 puff by mouth and INTO THE LUNGS once daily - RINSE MOUTH WELL AFTER USE 0 04/02/2023 Active Benzonatate 100 MG Oral Capsule (Tessalon Perles) take 1 capsule by mouth three times a day if needed 0 03/12/2023 Active oxyCODONE-Acetamin ophen 5-325 MG Oral Tablet (Percocet) Take 1 Tablet by mouth every 4 hours as needed for Pain, Severe. 30 Tablet 0 12/11/2022 3 Discontinue d(Medicatio n List Clean Up) documented as of this encounter (statuses as [...] Cigarettes Q uit: 12/01/1998 Smokeless Tobacco: Never Tobacco Cessation:Counseling Given: Not Answered Alcohol Use Standard Drinks/Week Comments Yes 0 [...] on file documented as of this encounter Last Filed Vital Signs Vital Sign Reading Time Taken Comments Blood Pressure - - Pulse - - Temperature 35.8 C (96.4 F) 05/16/2023 9:28 AM ES T Respiratory Rate - - Oxygen Saturation - - Inhaled Oxygen Concentration - - Weight 86.6 kg (191 lb) 05/16/2023 9:28 AM EST Height - - Body Mass Index 34.93 12/25/2022 10:09 AM EDT documented in this encounter Functional Status Functional Status Response [...] (15 years old or older) No 12/11/19 23 Cognitive Status Response Date of Assessm ent Because of a physical, menta l, or emotional condition, do you have serious difficulty concentrating, remembering, or making decisions? (5 years old or older) No 12/10/2022 documented as of this encounter Progress Notes * Josh Sierra MD - 05/16/2023 9:28 AM EST Images from the original note were not included. Assessment and Plan Rheumatoid arthritis involving multiple sites with positive rheumatoid factor (HCC) - Pain Management Drug Panel, Urine w/ Interpretation; Future - CBC with WBC Differential; Standing - Comprehensive Metabolic Panel; Standing Long-term use of immunosuppressant medication - CBC with WBC Differential; Standing - Comprehensive Metabolic Panel; Standing Vasculopathy MEDICATION USE AGREEMENT - Pain Management Drug Panel, Urine w/ Interpretation; Future She sign a med use agreement today will update urine tox screen and labs. Will continue with methotrexate, Orencia, Plaquenil and prednisone. Will continue with labs every 3 months. Return to clinic in 6 months. Rheumatology Synopsis: [facility] RA SYNOPSIS Date of RA Diagnosis: [birth year] (05/16/2023 9:00 AM) Current Treatment: MTX; ABT; HCQ (05/16/2023 9:00 AM) Previous Treatment: ETA; INF (05/16/2023 9:00 AM) 2009 Classification Criteria: Y (05/16/2023 9:00 AM) Seropositive or seronegative: Seropositive (05/16/2023 9:00 AM) RF and/or CCP: RF+ (05/16/2023 9:00 AM) Disease activity: Controlled Patient History History of Present Illness HPI:67 year old female presented to rheumatology clinic for Rheum Follow Up (Follow up - RA) She did have left knee replacement and that went well. Did hold her MTX and orencia with no issues.Knee is doing well. Has some joint pains and am stiffness for 30 min to 1 hr. Continues to have thevaculopathy which is stable. She is due for a med use agreement and urine tox screen. She states that she takes Vicodin usually once a day. She does take temazepam as well at bedtime. ROS: Review of Systems was asked and the following other significant symptoms are present: vasculopathy of the skin, chronic cough, joint pains Rheumatology History Subjective Patient's past history, medications, and allergies were reviewed. Objective Physical Exam Temp 35.8 C (96.4 F) (Infrared ) | Wt 86.6 kg (191 lb) | BMI 34.93 kg/m | BSA 1.95 m Constitutional: no acute distress HEENT: normal: normocephalic, atraumatic; no masses, tenderness, or adenopathy Eyes: PERRLA, sclera and conjunctiva normal Neck: supple, no adenopathy CV: normal rate and rhythm, no murmur, gallops or rub Chest: normal respiratory effort, lungs clear to auscultation and percussion Abdomen: normal: soft, bowel sounds normal, no masses, tenderness or organomegaly Musculoskeletal: Chronic changes noted to both hands without synovitis or effusions. Left knee replacement noted. No elbow effusions. Skin: warm, dry, vasculopathy lesions noted on right elbow, both hands : MSK/Joint exam (Homunculus) MSK Exam findings: Homunculus exam Studies: Labs and Imaging studies reviewed with pertinent findings noted below: Disease Treatment Response CDAI Scoring Patient Global: 40 mm Provider Global: 10 mm Tender (CAUSEY-28): 0 / 28 Swollen (CAUSEY-28): 0 / 28 CDAI: 5 CDAI (Clinical Disease Activity Index) [facility] Outcomes measures: Serial CDAI: Synopsis SmartLink 05/16/2023 09:20 CDAI CDAI 5 - Serial CDAI: - Yes - Remission: - Yes - low disease activity Currently on csDMARD: Yes Currently on Biologic DMARD: Yes Vaccination status: COVID: Vaccine and/or Health maintenance status Incomplete Influenza:Vaccine complete for this season Pneumococcal:Vaccine and/or Health maintainance status Incomplete Zoster:Vaccine and/or Health Maintainance Incomplete Last Hepatitis and TB testing: Hepatitis B: Not Tested, results not available Hepatitis C: Tested, result reviewed PPD or TB-Gold: Not Tested, results not available Lab Results Component Value Date HCVAB Negative 11/20/2022 No results found for: "TB GOLD AG NIL", "TB GOLD MITOGEN NIL", "PPD INDURATION", "PPD-OUTSIDE LAB","QUANTIFERON GOLD TB", "QUANTIFERON-TB PLUS", "QUANTIFERON-TB PLUS,1T", "QUANTIFERON-TB PLUS,4T" Wrap-Up Follow-up: Return in about 6 months (around 11/15/2023). | Check-out note: RA documented in this encounter Nursing Notes * Mera Chavis LPN - 05/16/2023 9:28 AM EST Chief Complaint Patient presents with Rheum Follow Up Follow up - RA documented in this encounter Plan of Treatment Upcoming Encounters Date Type Department Care Team (Late st Contact Info) Description 06/28/2023 10:20 AM EST Office Visit Family Practice [facility] [address] [place] [address] Ellis Matos MD [address] [place] [address] 11/04/2023 3:40 PM EDT Office Visit Rheumatology [address] [place] [address] Josh Sierra MD [address] [place], [place] [address] [address] 12/12/2023 10:00 AM EDT Office Visit Orthopaedics [facility] [address] [place] [address] Mirza Chapman DO [address] [place] [address] Pending Results Name Type Priority Associated Diagnoses Date /Time PAIN MANAGEMENT DRUG PANEL, URINE W/ INTERPRETATION Lab Routine Rheumatoid arthritis involving multiple sites with positive rheumatoid factor (HCC) MEDICATION USE AGREEMENT 05/16/2023 10:24 AM EST Scheduled Orders Name Type Priority Associated Diagnoses Orde r Schedule PAIN MANAGEMENT DRUG PANEL, URINE W/ INTERPRETATION Lab Routine Rheumatoid arthritis involving multiple sites with positive rheumatoid factor (HCC) MEDICATION USE AGREEMENT Expected: 05/16/2023, Expires: 05/16/2024 CBC WITH WBC DIFFERENTIAL Lab Routine Rheumatoid arthritis involving multiple sites with positive rheumatoid factor (HCC) Long-term use of immunosuppressant medication Every 3 Months for 999 Occurrences starting 05/16/2023 until 05/16/2024, 1 completed COMPREHENSIVE METABOLIC PANEL Lab Routine Rheumatoid arthritis involving multiple sites with positive rheumatoid factor (HCC) Long-term use of immunosuppressant medication Every 3 Months for 999 Occurrences starting 05/16/2023 until 05/16/2024, 1 completed Scheduled Procedures Name Priority Associated Diagnoses Date/Ti me COLONOSCOPY FLEXIBLE PROXIMAL DIAGNOSTIC Recall History of colon polyps Health Maintenance Due Date Last Done Comments Zoster Vaccines (1 of 2) 1972 DTaP,Tdap,and Td Vaccines (1 - Tdap) 03/03/2013 03/02/2013 Depression Screening 02/16/2021 02/17/2020 COVID-19 Vaccine (5 season) 2023 08/22/2021, 02/06/2021, 07/29/2020, Additional history exists Pneumococcal Vaccine: 65+ Years (4 - PPSV23 or PCV20) 04/04/2023 05/22/2019, 04/04/2018, 09/17/2016, Additional history exists Mammogram 07/25/2023 07/25/2022, 02/02, 10/30/2018, Additional history exists GFR 02/01/2024 05/16/2023, 01/03, 12/11/2022, Additional history exists COLONOSCOPY-EVERY 5 YRS AGES 18-100 03/03/2024 03/03/2019, 03/03/2019 Albumin/Creatinine Ratio 07/13/2024 07/13/2021 Diabetes Screening 01/31/2026 05/16/2023, 0 01/31/2023, 12/11/2022, Additional history exists Lipid Panel 05/13/2028 05/13/2023, 01/03, 12/05/2021, Additional history exists DXA Scan 04/16/2029 04/16/2022, 09/11/2015, 02/07/2016 Influenza Vaccine (FLU shot) Completed , [...] this encounter Medical Devices Implanted Type Area [employer] Device Identifier Shelf Expiration Date Model / Serial / Lot Knee X3 Ins Pos Cs Sz3 11 - [id number] Implanted:Qty: 1 on 12/10/2022 by Mirza Chapman, DO at OR [facility] Left: Knee KATIE : ORTHOPAEDICS 08/26/2027 [id number] / / [id number] documented as of this encounter Results * (ABNORMAL) COMPREHENSIVE METABOLIC PANEL (05/16/2023 10:19 AM EST) BUN 10 6 - 20 mg/dL 05/16/2023 11:32 AM EST [facility] Creatinine 0.7 0.5 - 1.0 mg/dL 05/16/2023 11:32 AM EST [facility] Estimated Glomerular Filtration Rate >90 >=60 mL/min 05/16/2023 11:32 AM EST [facility] Comment:eGFR is calculated b ased on the CKD-EPI 2020 equation Sodium 136 135 - 146 mmol/L 05/16/2023 11:32 AM EST [facility] Potassium 3.9 3.5 - 5.1 mmol/L 05/16/2023 11:32 AM EST [facility] Chloride 97(L) 98 - 107 mmol/L 05/16/2023 11:32 AM EST [facility] CO2 26 22 - 32 mmol/L 05/16/2023 11:32 AM EST [facility] Anion Gap 13 7 - 15 mmol/L 05/16/2023 11:32 AM EST [facility] Glucose 106 70 - 120 mg/dL 05/16/2023 11:32 AM EST [facility] Albumin 4.0 3.8 - 5.0 g/dL 05/16/2023 11:32 AM EST [facility] AST 17 10 - 35 U/L 05/16/2023 11:32 AM EST [facility] Alkaline Phosphatase 81 35 - 130 U/L 05/16/2023 11:32 AM EST [facility] Bilirubin, Total 0.4 <=1.2 mg/dL 05/16/2023 11:32 AM EST [facility] Calcium 9.5 8.4 - 10.2 mg/dL 05/16/2023 11:32 AM EST [facility] [place] [facility] Protein 6.4 6.0 - 8.3 g/dL 05/16/2023 11:32 AM EST [facility] [place] [facility] ALT 18 10 - 35 U/L 05/16/2023 11:32 AM EST [facility] Blood Venous blood specimen / Unknown Venipuncture / Unknown 05/16/2023 10:19 AM EST 05/16/2023 10:19 AM EST Josh Sierra MD LAB BLOOD ORDERABLE S [facility] [address] [place] [address] documented in this encounter Visit Diagnoses Diagnosis Rheumatoid arthritis involving multiple sites with positive rheumatoid factor (HCC)- Primary Long-term use of immunosuppressant medication Encounter for long-term (current) use of other medications Vasculopathy Unspecified circulatory system disorder MEDICATION USE AGREEMENT documented in this encounter Advance Directives Documents on File Type Date Recorded Patient Hay Baler 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 Question Answer Comments Discussion of Advance Directives occurred with: Patient Care Teams Drinking Water Technician Relationship Specialty Start Date End Date Ellis Matos MD [address] [place] [address] PCP - General Family Medicine 11/24/18 documented as of this encounter
--- OUTSIDE RECORDS SUMMARY | 2023-08-24 08:32 | External Medical Summary | Summary of Care ---
Author Name Unknown Organization [facility] Address [address] [facility] [place] [address] Phone [phone] Care Team Providers Care Electric Frying Pan Repairer Name Role Phone Ellis Matos MD Primary Care Provider [phone] [phone] Reason for Visit * Reason Onset Date Comments Precert Approved 05/22/2023 [place] Encounter Details Date Type Department Care Team (Late st Contact Info) Description 05/22/2023 Telephone Rheumatology [place] [id number] [place] [address] Josh Sierra MD [facility] [place] [address] Precert Approved ( [place]) Allergies Active Allergy Reactions Criticality Noted Date Comments Leflunomide Rash 07/08/2014 Sulfa Antibiotics Rash 01/25/2011 documented as of this encounter (statuses as of 06/17/2023) Medications Medication Sig Dispensed Refills Start Date [...] as of this encounter (statuses as of 06/17/2023) Active Problems Problem Noted Date Diagnosed Date Hx of nonmelanoma skin cancer 06/13/2023 Overview: basal cell carcinoma (mid forehead 12/22, L denominational hairline 12/22) S/P total knee arthroplasty, left [...] as of this encounter (statuses as of 06/17/2023) Resolved Problems Problem Noted Date Diagnosed Date [...] as of this encounter (statuses as of 06/17/2023) Immunizations Name Administration Dates Next Due COVID-19 [...] encounter Miscellaneous Notes * Telephone Encounter - Mera Chavis LPN - 06/17/2023 3:50 PM EST Patient Assistance Name of Medication: Dwayne Was patient spoken to: : NO Type of assistance: [facility] Card ID:[id number] Group: [id number] BIN: [id number] PCN: [id number] Applications mailed: : NO Follow up: Member was approved 12/16/2022 - 06/13/2024 * Telephone Encounter - Anni Easley billiard parlor manager - 06/13/2023 1:08 PM EST Patients insurance would like to inform the office that [place] is approved until from 05-24-23 to 06-13-24. Patient and pharmacy made aware by elif . Information will be faxed to the office. Thank you, Anni Easley,[facility] Resort Housekeeper II [facility] ([facility]) (formerly Telepharmacy) 06/13/2023,1:08 PM * Telephone Encounter - Sana Chavis LPN - 06/10/2023 4:09 PM EST Faxed to [facility] * Telephone Encounter - Catherine Baker [...] appeal * Telephone Encounter - Catherine Baker [facility] - 06/10/2023 2:16 PM EST Images from the original note were not included. Despite multiple attempts, P2P has not been received via call. Would now Suggest submitting an appeal * Telephone Encounter - Catherine Baker [facility] - 06/07/2023 10:49 AM EST P2P Scheduled Time to Expect Call: Today Case: EOC [id number] Provided Dr. Tovars phone number. Flagged as high priority as this 3rd attempt. * Telephone Encounter - Catherine Baker [facility] - 06/06/2023 3:44 PM EST P2P Scheduled Time to Expect Call: Today Case: EOC [id number] Provided Dr. Tovars phone number. * Telephone Encounter - Josh Sierra MD - 06/06/2023 12:12 PM EST I so far have not received any calls regarding this denial - I can give my cell number through teams (Do not want it in the chart) for them to call that * Telephone Encounter - Catherine Baker [facility] - 05/29/2023 2:24 PM EST P2P Scheduled Called back to provide office numbers, thanks! Time to Expect Call: Anytime 8 AM-3 PM on 06/04-06/06/23 Case: EOC [id number] Phone number to be calling in: [phone] Phone Number Provided: [phone] or [phone] * Telephone Encounter - Josh Sierra MD - 05/29/2023 2:16 PM EST I do not know what that 570 number is. We have the [phone] number to give. Our clinic number is [phone] but my nurses are not always able to answer it and there is no voice mail * Telephone Encounter - Catherine Baker RPh - 05/29/2023 2:14 PM EST The primary office number I had on file which is [phone] And then I provided my phone number [...] 8 AM-3 PM on 06/04-06/06/23 Case: EOC [id number] Phone number to be calling in: [phone] * Telephone Encounter - Josh Sierra MD - 05/28/2023 1:45 PM EST I am off this week. Would appeal as she ahs been on this for many years would good control. Catherine Baker [facility] - would you call to set up appeal? * Telephone Encounter - Catherine Baker [facility] - 05/28/2023 12:58 PM EST Rheum Team: [...] up appropriately. Thank you, Gabby Jerez CPhT [facility] * Telephone Encounter - Kiki Jerry CPhT - 05/28/2023 7:39 AM EST Images from the original note were not included. Rheumatology Pre-Certification Response Denied - See below Note: Physician may complete a peer to peer within 72 business hours by calling [phone]. Lucero Fernando Medication Histology Assistant Kiki Jerry CPhT-Adv Roller [place] II [facility] ([facility]) (formerly Telepharmacy) 05/28/2023,7:39 AM * Telephone Encounter - Rangel Mosher, billiard parlor manager - 05/22/2023 9:20 AM EST New or re-auth: new Patient Lore Brito needs a prior authorization for their Orencia through their [facility] insurance. ID: [id number] BIN:[id number] PCN:[id number] Target ship date is n/a. Thank you very much, Jillian Mosher Resort Housekeeper, [facility] 05/22/2023 9:20 AM documented in this encounter Plan of Treatment Upcoming Encounters Date Type Department Care Team (Late st Contact Info) Description 06/20/2023 9:20 AM EST Office Visit Dermatology[address] [place] [address] Diana Olivares, DAMIAN [address] [place] [address] [place] [address] 06/28/2023 10:20 AM EST Office Visit Family Practice [facility] [address] [place] [address] Ellis Matos MD [address] [place] [address] 07/29/2023 12:00 PM EST [facility] [address] [place] [address] 11/04/2023 3:40 PM EDT Office Visit Rheumatology [address] [place] [address] Josh Sierra MD [facility] [place] [address] 12/12/2023 10:00 AM EDT Office Visit Orthopaedics [facility] [address] [place] [address] Mirza Chapman, [address] [place] [address] Scheduled Procedures Name Priority Associated Diagnoses Date/Ti [...] this encounter Medical Devices Implanted Type Area Glass Wool Blanket Machine Feeder Device Identifier Shelf Expiration Date Model / Serial / Lot Knee X3 Ins Pos Cs Sz3 11 - [id number] Implanted:Qty: 1 on 12/10/2022 by Mirza Chapman DO at OR [facility] Left: Knee KATIE : ORTHOPAEDICS 08/26/2027 [id number] / / [id number] documented as of this encounter Advance Directives Documents on File Type Date Recorded Patient Gym Manager 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 Question Answer Comments Discussion of Advance Directives occurred with: Patient Care Teams Electric Frying Pan Repairer Relationship Specialty Start Date End Date Ellis Matos MD [address] [facility] [place] [address] PCP - General Family Medicine 11/24/18 documented as of this encounter
--- OUTSIDE RECORDS SUMMARY | 2023-08-24 08:32 | External Medical Summary | Summary of Care ---
Author Name Unknown Organization [facility] Address [address] [facility] [place] [address] Phone [phone] Care Team Providers Care Marine Equipment Preservation Inspector Name Role Phone Ellis Matos MD Primary Care Provider [phone] Reason for Visit * Reason Onset Date Comments Precert Denied 05/22/2023 [place] Encounter Details Date Type Department Care Team (Late st Contact Info) Description 05/22/2023 Telephone Rheumatology [place] [address] [place] [address] Josh Sierra MD [facility] [place] [address] Precert Denied ( Orencia) Allergies Active Allergy [...] - 06/10/2023 4:09 PM EST Faxed to [facility] * Telephone Encounter - Catherine Baker [facility] - 06/10/2023 3:53 PM EST Images from [...] Time to Expect Call: Today Case: EOC [id number] Provided Dr. Tovars phone number. Flagged as high priority as this 3rd attempt. * Telephone Encounter - Catherine Baker RPh - 06/06/2023 3:44 PM EST P2P Scheduled Time to Expect Call: Today Case: EOC [id number] Provided Dr. Canales phone number. * Telephone [...] 8 AM-3 PM on 06/04-06/06/23 Case: EOC [id number] Phone number to be calling in: [phone] Phone Number Provided: [phone] or [phone] * Telephone Encounter - Josh Sierra MD - 05/29/2023 2:16 PM EST I do not know what that 570 number is. We have the [phone] number to give. Our clinic number is [phone] but my nurses are not always able to answer it and there is no voice mail * Telephone Encounter - Catherine Baker RPh - 05/29/2023 2:14 PM EST The primary office number I had on file which is [phone] And then I provided my phone number [...] 8 AM-3 PM on 06/04-06/06/23 Case: EOC [id number] Phone number to be calling in: [phone] * Telephone Encounter - Josh Sierra MD - 05/28/2023 1:45 PM EST I am off this week. Would appeal as she ahs been on this for many years would good control. Catherine Baker [facility] - would you call to set up appeal? * Telephone Encounter - Catherine Baker [facility] - 05/28/2023 12:58 PM EST Rheum Team: [...] Jerez CPhT - 05/28/2023 12:04 PM EST Hello, [place]! The prior authorization for orencia has been denied. Does the office plan on appealing this decision or will the provider be seeking alternate therapy for this patient? Please let us know how you plan to proceed so we may follow up appropriately. Thank you, Gabby Jerez CPhT [facility] * Telephone Encounter - Kiki Jerry CPhT - 05/28/2023 7:39 AM EST Images from the original note were not included. Rheumatology Pre-Certification Response Denied - See below Note: Physician may complete a peer to peer within 72 business hours by calling [phone]. Lucero Fernando Medication Cdl Truck Driver Kiki Jerry CPhT-Adv Retail Agent II [facility] ([facility]) (formerly Telepharmacy) 05/28/2023,7:39 AM * Telephone Encounter - Rangel Mosher PHARM Tech - 05/22/2023 9:20 AM EST New or re-auth: new Patient Lore Brito needs a prior authorization for their Orencia through their [facility] insurance. ID: [id number] BIN:[id number] PCN:[id number] Target ship date is n/a. Thank you very much, Jillian Mosher Trade Union Secretary, [facility] 05/22/2023 9:20 AM documented in this encounter Plan of Treatment Upcoming Encounters Date Type Department Care Team (Late st Contact Info) Description 06/28/2023 10:20 AM EST Office Visit Family Practice [facility] [address] [place] [address] Ellis Matos MD [address] [place] [address] 11/04/2023 3:40 PM EDT Office Visit Rheumatology [place] [address] [facility] [place] [address] Josh Sierra MD [facility] [place] [address] 12/12/2023 10:00 AM EDT Office Visit Orthopaedics [facility] [address] [place] [address] Mirza Chapman, [address] [place] [address] Scheduled Procedures Name Priority Associated Diagnoses Date/Ti [...] this encounter Medical Devices Implanted Type Area Color Finisher Device Identifier Shelf Expiration Date Model / Serial / Lot Knee X3 Ins Pos Cs Sz3 11 - [id number] Implanted:Qty: 1 on 12/10/2022 by Mirza Chapman, at OR [facility] Left: Knee KATIE : ORTHOPAEDICS 08/26/2027 [id number] / / [id number] documented as of this encounter Advance Directives Documents on File Type Date Recorded Patient Punch Finisher 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 Question Answer Comments Discussion of Advance Directives occurred with: Patient Care Teams Marine Equipment Preservation Inspector Relationship Specialty Start Date End Date Ellis Matos MD [address] [place] [address] PCP - General Family Medicine 11/24/18 documented as of this encounter
--- OUTSIDE RECORDS SUMMARY | 2023-08-24 08:33 | External Medical Summary | Summary of Care ---
Author Name Unknown Organization [facility] Address [address] [facility] [address] Phone [phone] Care Team Providers Care Program Counselor Name Role Phone Ellis Matos MD Primary Care Provider [phone] Reason for Visit * Reason Onset Date Comments Medication Refill 04/24/2023 Encounter Details Date Type Department Care Team (Late st Contact Info) Description 04/24/2023 Refill Rheumatology, [address] [address] Josh Briseno MD [facility] [place] [address] Rheumatoid arthritis involving multiple sites with positive rheumatoid factor (HCC) Allergies Active Allergy Reactions Criticality Noted Date Comments Leflunomide Rash 07/08/2014 Sulfa Antibiotics Rash 01/25/2011 documented as of this encounter (statuses as of 04/24/2023) Medications Medication Sig Dispensed Refills Start Date [...] for Wheezing. 18 g 1 10/13/2021 Active Hydroxychloroquine Sulfate 200 MG Oral Tablet (Plaquenil)Indicat ions:Rheumatoid arthritis involving multiple sites with positive rheumatoid factor (HCC) take 1 tablet by mouth at bedtime 90 Tablet 3 03/22/2022 Active Orencia 125 MG/ML Subcutaneous Solution Prefilled [...] MORNING 90 Tablet 3 08/20/2022 4 Active Metoprolol Succinate ER 25 MG Oral Tablet Extended Release 24 Hour (toPROL XL)Indications:HTN , goal below 130/80 TAKE ONE TABLET BY MOUTH EVERY MORNING 90 Tablet 3 08/07/2022 4 Active oxyCODONE-Acetamin ophen 5-325 MG Oral Tablet (Percocet) Take 1 Tablet by mouth every 4 hours as needed for Pain, Severe. 30 Tablet 0 12/11/2022 Active predniSONE 5 MG Oral Tablet (Deltasone)Indicat [...] or later 120 Tablet 0 04/24/2023 Active Temazepam 30 MG Oral Capsule (Restoril) Take 1 Capsule by mouth at bedtime as needed for Sleep. 30 Capsule 3 02/11/2023 3 Discontinue d(Refill) HYDROcodone-Acetam inophen 5-325 MG Oral TabletIndications: Rheumatoid arthritis involving multiple sites with positive rheumatoid factor (HCC) Take 1 Tablet by mouth every 6 hours as needed for Pain, Moderate. For ongoing therapy. May fill 02/11/23 or later 120 Tablet 0 02/11/2023 3 Discontinue d(Refill) documented as of this encounter (statuses as of 04/24/2023) Active Problems Problem Noted Date Diagnosed Date [...] as of this encounter (statuses as of 04/24/2023) Resolved Problems Problem Noted Date Diagnosed Date [...] as of this encounter (statuses as of 04/24/2023) Immunizations Name Administration Dates Next Due COVID-19 mRNA, LNP-s, No Pre serve, 2-Dose Series (Moderna) 02/06/2021,07/29/2020,07/01/2020 COVID-19, mRNA, LNP-s, PF, B ooster, 100mcg/0.5mg (Moderna) 08/22/2021 PPD 08/01/2009 Pneumococcal Conjugate Vacc, 13 Valent (Prevnar) 05/22/2019 Pneumococcal Polysaccharide PPV23 (Pneumovax) 04/04/2018,09/17/2016,07/18/2010 SEASONAL INFLUENZA, PF, 6 M & Above, IM , (FLULAVAL or FLUZONE) 05/22/2019 Season Influenza, Quad, PF, Adjuvanted, 65+ Yrs, IM (FLUAD) 02/17/2020 Seasonal Influenza Virus Vac cine, Unspecified Formulation 06/06/2021,02/17/2020,05/22/2019,05/12,03/27/2017,03/09/2015 Seasonal Influenza, QUAD, wi th Preserv, 6 [...] Telephone Encounter - Josh Briseno MD - 04/24/2023 3:23 PM ESTSigned Prescriptions: Disp Refills Temazepam 30 MG Oral Capsule (Restoril) 30 Cap*3 Sig: Take 1 Capsule by mouth at bedtime as needed for Sleep.Authorizing Provider: JOSH BRISENO HYDROcodone-Acetaminophen 5-325 MG Oral Ta*120 Ta*0 Sig: Take 1 Tablet by mouth every 6 hours as needed for Pain,Moderate. For ongoing therapy. May fill 04/24/23 or laterAuthorizing Provider: JOSH BRISENO * Telephone Encounter - Josh Briseno MD - 04/24/2023 3:22 PM EST I have reviewed the patients controlled substance dispensing history in the Prescription Drug Monitoring Program in compliance with the [facility] regulations before prescribing a controlled substance. Last [...] pH SIXTO 5.3 * Telephone Encounter - Sana Chavis LPN - 04/24/2023 10:15 AM ESTPending Prescriptions: Disp Refills Temazepam 30 MG Oral Capsule (Restoril) 30 Cap*3 Sig: Take 1 Capsule by mouth at bedtime as needed for Sleep. HYDROcodone-Acetaminophen 5-325 MG Oral Ta*120 Ta*0 Sig: Take 1 Tablet by mouth every 6 hours as needed for Pain, Moderate. For ongoing therapy. May fill 02/11/23 or later * Telephone Encounter - Sana Chavis LPN - 04/24/2023 10:14 AM EST Pending Prescriptions: Disp Refills Temazepam 30 MG Oral Capsule (Restoril) 30 Cap*3 Sig: Take 1 Capsule by mouth at bedtime as needed for Sleep. HYDROcodone-Acetaminophen 5-325 MG Oral T*120 Ta*0 Sig: Take 1 Tablet by mouth every 6 hours as needed for Pain, Moderate. For ongoing therapy. May fill 02/11/23 or later Last Visit: 07/25/22(in office), Visit date not found (telemedicine) Next Visit: 05/16/23 Patient Active Problem List Diagnosis Code HTN, goal below 130/80 I10 Rheumatoid arthritis involving multiple sites with positive rheumatoid factor (HCC) M05.79 MEDICATION USE AGREEMENT AA3387 Vasculopathy I99.9 Dyslipidemia E78.5 Primary insomnia F51.01 [...] Care Team (Late st Contact Info) Description 05/16/2023 9:20 AM EST Office Visit Rheumatology [address] [place] [address] Josh Briseno MD [address] [place] [address] [place] [address] 06/28/2023 10:20 AM EST Office Visit Family Practice [facility] [address] [place] [address] Ellis Matos MD [address] [place] [address] 12/12/2023 10:00 AM EDT Office Visit Orthopaedics [facility] [address] [place] [address] Mirza Chapman DO [address] [place] [address] Scheduled Procedures Name Priority Associated Diagnoses Date/Ti me COLONOSCOPY FLEXIBLE PROXIMAL DIAGNOSTIC Recall History of colon polyps Health Maintenance Due Date Last Done Comments Zoster Vaccines (1 of 2) 1972 DTaP,Tdap,and Td Vaccines (1 - Tdap) 03/03/2013 03/02/2013 Depression Screening 02/16/2021 02/17/2020 COVID-19 Vaccine (24 season) 2023 08/22/2021, 02/06/2021, 07/29/2020, Additional history exists Influenza Vaccine (FLU shot) (#1) 2023 06/06/2021, 06/06/2021, 02/17/2020, Additional history exists Pneumococcal Vaccine: 65+ Years (4 - PPSV23 or PCV20) 04/04/2023 05/22/2019, 04/04/2018, 09/17/2016, Additional history exists Mammogram 07/25/2023 07/25/2022, 02/02, 10/30/2018, Additional history exists GFR 02/01/2024 01/31/2023, 12/01, 11/20/2022, Additional history exists COLONOSCOPY-EVERY 5 YRS AGES 18-100 03/03/2024 03/03/2019, 03/03/2019 Albumin/Creatinine Ratio 07/13/2024 07/13/2021 Diabetes Screening 01/31/2026 01/31/2023, 0 12/11/2022, 12/11/2022, Additional history exists Lipid Panel 02/01/2028 01/31/2023, 07/0 10/2021, 11/10/2019, Additional history exists DXA Scan 04/16/2029 04/16/2022, 09/0 11/2015, 02/07/2016 GARDASIL-HPV IMMUNIZATION SERIES Aged Out No longer eligible based on patient's age to complete this topic Hepatitis B Aged Out No longer eligi ble based on patient's age to complete this topic MENINGOCOCCAL (MENACTRA/MENVEO) Aged Out No longer eligible based on patient's age to complete this topic documented as of this encounter Medical Devices Implanted Type Area Supply And Distribution Manager Device Identifier Shelf Expiration Date Model / Serial / Lot Knee X3 Ins Pos Cs Sz3 11 - [id number] Implanted:Qty: 1 on 12/10/2022 by Mirza Chapman, DO at OR [facility] Left: Knee KATIE : ORTHOPAEDICS 08/26/2027 [id number] / / [id number] documented as of this encounter Visit Diagnoses Diagnosis Rheumatoid arthritis involving multiple sites with positive rheumatoid factor (HCC) documented in this encounter Advance Directives Documents on File Type Date Recorded Patient Conciliation Court Judge 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 Question Answer Comments Discussion of Advance Directives occurred with: Patient Care Teams Program Counselor Relationship Specialty Start Date End Date Ellis Matos MD [address] [place] [address] PCP - General Family Medicine 11/24/18 documented as of this encounter
--- OUTSIDE RECORDS SUMMARY | 2023-08-24 08:33 | External Medical Summary | Summary of Care ---
Author Name Unknown Organization [facility] Address [address] [facility] [address] Phone [phone] Care Team Providers Care Mortar Mixer Name Role Phone Ellis Matos MD Primary Care Provider [phone] [phone] Reason for Visit * Reason Comments Outpatient Testing Encounter Details Date Type Department Care Team (Latest Contact Info) Description 05/16/2023 10:20 AM EST Laboratory Laboratory, [facility] [address] [place] [address] [facility] [address] [place] [address] Rheumatoid arthritis involving multiple sites with positive rheumatoid factor (HCC); Long-term use of immunosuppressant medication; MEDICATION USE AGREEMENT Allergies Active Allergy Reactions [...] once daily 90 Tablet 3 05/11/2022 Active hydroCHLOROthiazide 25 MG Oral Tablet (Hydrodiuril)Indica [...] a day if needed 0 03/12/2023 Active documented as of this encounter (statuses [...] 06/28/2023 10:20 AM EST Office Visit [facility] [address] [place] [address] Ellis Matos MD [address] [place] [address] 11/04/2023 3:40 PM EDT Office Visit Rheumatology [place] [id number] [facility] [place] [address] Josh Sierra MD [facility] [email or web address] [place] [address] 12/12/2023 10:00 AM EDT Office Visit Orthopaedics [facility] [address] [place] [address] Mirza Chapman, [address] [place] [address] Pending Results Name Type Priority Associated Diagnoses Date /Time CBC WITH WBC DIFFERENTIAL Lab Routine Rheumatoid arthritis involving multiple sites with positive rheumatoid factor (HCC) Long-term use of immunosuppressant medication 05/16/2023 10:19 AM EST COMPREHENSIVE METABOLIC PANEL Lab Routine Rheumatoid arthritis involving multiple sites with positive rheumatoid factor (HCC) Long-term use of immunosuppressant medication 05/16/2023 10:19 AM EST CBC Lab Routine Rheumatoid arthritis involving multiple sites with positive rheumatoid factor (HCC) Long-term use of immunosuppressant medication 05/16/2023 10:19 AM EST DIFFERENTIAL, AUTOMATED Lab Routine Rheumatoid arthritis involving multiple sites with positive rheumatoid factor (HCC) Long-term use of immunosuppressant medication 05/16/2023 10:19 AM EST PAIN MANAGEMENT DRUG PANEL, URINE W/ INTERPRETATION Lab Routine Rheumatoid arthritis involving multiple sites with positive rheumatoid factor (HCC) MEDICATION USE AGREEMENT 05/16/2023 10:24 AM EST Scheduled Procedures Name Priority Associated [...] 12/11/2022, 12/11/2022, Additional history exists Lipid Panel 05/13/2028 [...] this encounter Medical Devices Implanted Type Area Transportation Maintenance Worker Device Identifier Shelf Expiration Date Model / Serial / Lot Knee X3 Ins Pos Cs Sz3 11 - [id number] Implanted:Qty: 1 on 12/10/2022 by Mirza Chapman, at OR [facility] Left: Knee KATIE : ORTHOPAEDICS 08/26/2027 [id number] / / [id number] documented as of this encounter Visit Diagnoses Diagnosis Rheumatoid arthritis involving multiple sites with positive rheumatoid factor (HCC) Long-term use of immunosuppressant medication Encounter for long-term (current) use of other medications MEDICATION USE AGREEMENT documented in this encounter Advance Directives Documents on File Type Date Recorded Patient Lines Tender 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 Question Answer Comments Discussion of Advance Directives occurred with: Patient Care Teams Mortar Mixer Relationship Specialty Start Date End Date Ellis Matos MD [address] [place] [address] PCP - General Family Medicine 11/24/18 documented as of this encounter
--- OUTSIDE RECORDS SUMMARY | 2023-08-24 08:33 | External Medical Summary ---
Author Name Unknown Address Unknown Organization [id number]:[facility]ATORY [facility] - [address] [place] [id number] Laboratory Report Ordering Provider Test Date Status SUZANNA FELDER 05/16/2023 10:24:38 Final Drugs that require complianc e testing:

Opioids:
Hydrocodone: Quantity 5/325 Date/Time of last Dose once daily - did miss yesterday and has not taken today

Benzodiazepines
Temazepam: Quantity 30mg Date/Time of last Dose nightly

Cutoff Concentrations:
Drug Level
Alpha-Hydroxyalprazolam 10 ng/mL
7-Aminoclonazepam 20 ng/mL
Nordiazepam 20 ng/mL
Oxazepam 20 ng/mL
Temazepam 20 ng/mL
Lorazepam 10 ng/mL

This test was developed and its performance characteristics determined by [employer]. It has not been cleared or approved by the [place] Food and Drug Administration. Observation Date Value Abnormality Reference (Units) Status METHODOLOGY 05/16/2023 10:24:38 LC-MS/MS Final Alpha hydroxyalprazolam cutoff [Mass/volume] in Urine for Confirmatory method 05/16/2023 10:24:38 Negative Negative Final 7-Aminoclonazepam [Mass/volume] in Urine by Confirmatory method 05/16/2023 10:24:38 Negative Negative Final Nordiazepam cutoff [Mass/volume] in Urine for Confirmatory method 05/16/2023 10:24:38 Negative Negative Final Oxazepam cutoff [Mass/volume] in Urine for Confirmatory method 05/16/2023 10:24:38 >1000 Above high normal Negative (ng/mL) Final Temazepam cutoff [Mass/volume] in Urine for Confirmatory method 05/16/2023 10:24:38 >1000 Above high normal Negative (ng/mL) Final LORazepam cutoff [Mass/volume] in Urine for Confirmatory method 05/16/2023 10:24:38 Negative Negative Final Performing Location LABORATORY [facility] - [facility] [address] [facility] [address]
--- OUTSIDE RECORDS SUMMARY | 2023-08-24 08:33 | External Medical Summary ---
Author Name Unknown Address Unknown Organization [id number][facility] [address] [place] [address] Laboratory Report Ordering Provider Test Date Status BRADFORD,SUZANNA 05/16/2023 10:19:48 Final Observation Date Value Abnormality Reference (Units ) Status WBC, Total 05/16/2023 10:19:48 11.10 Above high normal 4 .00-10.80 (K/uL) Final RBC 05/16/2023 10:19:48 4.14 3.85-5.15 (M/uL) Final Hemoglobin 05/16/2023 10:19:48 13.0 12.0-15.3 (g/dL) Final HCT 05/16/2023 10:19:48 39.3 36.0-45.2 (%) Final MCV 05/16/2023 10:19:48 94.9 81.5-97.5 (fL) Final MCH 05/16/2023 10:19:48 31.4 27.0-34.0 (pg) Final MCHC 05/16/2023 10:19:48 33.1 32.0-36.0 (g/dL) Final RDW 05/16/2023 10:19:48 13.8 11.5-15.5 (%) Final Platelets 05/16/2023 10:19:48 295 140-400 (K /uL) Final MPV 05/16/2023 10:19:48 10.8 6.6-11.1 ( fL) Final Performing [facility] [address] [place] [id number]
--- OUTSIDE RECORDS SUMMARY | 2023-08-24 08:33 | External Medical Summary | Summary of Care ---
Author Name Unknown Organization [facility] Address [address] [place] [address] Phone [phone] Care Team Providers Care Fleet Maintenance Foreman Name Role Phone Ellis Matos MD Primary Care Provider [phone] Encounter Details Date Type Department Care Team Description 03/04/2023 Patient Reported Data Patient Survey Ortho [facility]BERD Allergies Active Allergy Reactions Severity Noted Date Comments Leflunomide Rash 07/08/2014 Sulfa Antibiotics Rash 01/25/2011 documented as of this encounter (statuses as of 03/04/2023) Medications Medication Sig Dispensed Refills Start Date [...] MORNING 90 Tablet 3 08/20/2022 08/20/2023 Active Metoprolol Succinate ER 25 MG Oral Tablet Extended Release 24 Hour (toPROL XL)Indications:HTN, goal below 130/80 TAKE ONE TABLET BY MOUTH EVERY MORNING 90 Tablet 3 08/07/2022 08/07/2023 Active oxyCODONE-Acetamino phen 5-325 MG Oral Tablet (Percocet) Take 1 Tablet by mouth every 4 hours as needed for Pain, Severe. 30 Tablet 0 12/11/2022 Active predniSONE 5 MG Oral Tablet (Deltasone)Indicati [...] BEFORE BEDTIME 180 Capsule 3 01/18/2023 Active Temazepam 30 MG Oral Capsule (Restoril) Take 1 Capsule by mouth at bedtime as needed for Sleep. 30 Capsule 3 02/11/2023 Active HYDROcodone-Acetami nophen 5-325 MG Oral TabletIndications:R heumatoid arthritis involving multiple sites with positive rheumatoid factor (HCC) Take 1 Tablet by mouth every 6 hours as needed for Pain, Moderate. For ongoing therapy. May fill 02/11/23 or later 120 Tablet 0 02/11/2023 Active Albuterol Sulfate 0.63 MG/3ML Inhalation Nebulization Solution (Accuneb) Inhale 1 Vial via nebulizer every 4 hours as needed for Wheezing. 300 mL 1 02/13/2023 Active documented as of this encounter (statuses as of 03/04/2023) Active Problems Problem Noted Date S/P total knee arthroplasty, left 2022 Obesity, Class II, BMI 35-39.9, isolated (see actual BMI) 12/01/2021 Reactive airway disease without complica tion 06/06/2021 Gastroesophageal reflux disease with eso phagitis 05/22/2019 History of CVA (cerebrovascular accident ) 05/22/2019 Dyslipidemia 11/24/2018 Primary insomnia 11/24/2018 Long-term use of immunosuppressant medic ation 11/24/2018 Vasculopathy 08/29/2017 Overview: Palmar side of fingers - rheumatology treating with trental Rheumatoid arthritis involvi ng multiple sites with positive rheumatoid factor 01/20/2016 HTN, goal below 130/80 MEDICATION USE AGREEMENT documented as of this encounter (statuses as of 03/04/2023) Resolved Problems Problem Noted Date Resolved Date History of 2019 novel coronavirus disease (COVID -19) 08/02/2021 12/01/2021 Primary osteoarthritis of both knees 11/30/2020 12/25/2022 Primary osteoarthritis of left knee 12/13/2017 11/30/2020 Preoperative general physical examination 201612/25/2022 Encounter for long-term (current) use of medicat ions 08/11/2012 11/24/2018 Overview: ICD-10 update of inactive term ARTHRITIS,RHEUMATOID 01/20/2016 documented as of this encounter (statuses as of 03/04/2023) Immunizations Name Administration Dates Next Due COVID-19 [...] = 0.6 oz pur e alcohol) rarely Food Insecurity Answer Date Recorded Within the past 12 months, y ou worried that your food would run out before you got money to buy more. Never true 2022 Within the past 12 months, t he food you bought just didn't last and you didn't have money to get more. Never true 2022 Sex Assigned at Date Recorded Female 05/31/2020 3:[address] Job Start Date Occupation Industry Not on [...] or making decisions? (5 years old or older No 12/10/2022 documented as of this encounter Plan of Treatment Upcoming Encounters Date Type Specialty Care Team Description 04/04/2023 Office Visit Orthopedics Mirza Chapman DO [address] [place] [address] 05/16/2023 Office Visit Rheumatology Josh Sierra MD [address] [facility] [place] [address] 06/28/2023 Office Visit Family Medicine Ellis Matos MD [address] [place] [address] Scheduled Procedures Name Priority Associated Diagnoses Date/Ti me COLONOSCOPY FLEXIBLE PROXIMAL DIAGNOSTIC Recall History of colon polyps Health Maintenance Due Date Last Done Comments Zoster Vaccines (1 of 2) 1972 DTaP,Tdap,and Td Vaccines (1 - Tdap) 03/03/2013 03/02/2013 Depression Screening 02/16/2021 02/17/2020 COVID-19 Vaccine (5 - Moderna risk series) 10/17/2021 08/22/2021, 02/06/2021, 07/29/2020, Additional history exists Influenza [...] DXA Scan 04/16/2029 04/16/2022, 090 11/2015, 02/07/2016 GARDASIL-HPV IMMUNIZATION SERIES Aged Out No longer eligible based on patient's age to complete this topic Hepatitis B Aged Out No longer eligi ble based on patient's age to complete this topic MENINGOCOCCAL (MENACTRA/MENVEO) Aged Out No longer eligible based on patient's age to complete this topic documented as of this encounter Medical Devices Implanted Type Area Bluing Oven Tender Device Identifier Shelf Expiration Date Model / Serial / Lot Knee X3 Ins Pos Cs Sz3 11 - [id number] Implanted:Qty: 1 on 12/10/2022 by Mirza Chapman DO at OR [facility] Left: Knee KATIE : ORTHOPAEDICS 08/26/2027 [id number] / / [id number] documented as of this encounter Advance Directives Documents on File Type Date Recorded Patient Manager Operations Research 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 Question Answer Comments Discussion of Advance Directives occurred with: Patient Care Teams Fleet Maintenance Foreman Relationship Specialty Start Date End Date Ellis Matos MD [address] [place] [address] PCP - General Family Medicine 11/24/18 documented as of this encounter
--- OUTSIDE RECORDS SUMMARY | 2023-08-24 08:33 | External Medical Summary ---
Author Name Unknown Address Unknown Organization K0G:LABORATORY [facility] [address] - [address] [place] [address] Laboratory Report Ordering Provider Test Date Status BRADFORD,SUZANNA 05/16/2023 10:19:48 Final Observation Date Value Abnormality Reference (Units ) Status BUN 05/16/2023 10:19:48 10 6-20 (mg/dL) Final Creatinine 05/16/2023 10:19:48 0.7 0.5-1.0 (mg/dL) Final Glomerular filtration rate/1.73 sq M.predicted [Volume Rate/Area] in Serum, Plasma or Blood by Creatinine-based formula (CKD-EPI) 05/16/2023 10:19:48 >90 >=60 (mL/min) Final eGFR is calculated based on the CKD-EPI 2020 equation SODIUM 05/16/2023 10:19:48 136 135-146 (m mol/L) Final Potassium 05/16/2023 10:19:48 3.9 3.5-5.1 (m mol/L) Final Cl 05/16/2023 10:19:48 97 Below low normal 98- 107 (mmol/L) Final CO2 05/16/2023 10:19:48 26 22-32 (mmo l/L) Final Anion gap 05/16/2023 10:19:48 13 7-15 (mmol /L) Final Glucose 05/16/2023 10:19:48 106 70-120 (mg /dL) Final Albumin 05/16/2023 10:19:48 4.0 3.8-5.0 (g /dL) Final AST (Aspartate aminotransferase) 05/16/2023 10:19:48 17 10-35 (U/L) Fin al Alk Phos 05/16/2023 10:19:48 81 35-130 (U/ L) Final Bilirubin, Total 05/16/2023 10:19:48 0.4 <=1 .2 (mg/dL) Final Calcium 05/16/2023 10:19:48 9.5 8.4-10.2 ( mg/dL) Final Protein 05/16/2023 10:19:48 6.4 6.0-8.3 (g /dL) Final ALT (Alanine aminotransferase) 05/16/2023 10:19:48 18 10-35 (U/L) Dustin jeffries Performing Location LABORATORY [facility] [address] - [address] [place] [address]
--- OUTSIDE RECORDS SUMMARY | 2023-08-24 08:33 | External Medical Summary | Summary of Care ---
Author Name Unknown Organization [facility] Address [address] [facility] [place] [address] Phone [phone] Care Team Providers Care Foot Roentgenologist Name Role Phone Ellis Matos MD Primary Care Provider [phone] [phone] Reason for Visit * Reason Comments Follow Up Left knee Encounter Details Date Type Department Care Team (Late st Contact Info) Description 04/04/2023 11:15 AM EDT Office Visit Orthopaedics [facility] [address] [place] [address] Mirza Chapman, [address] [facility] [place] [address] Status post total knee replacement, left* Allergies Active Allergy Reactions Criticality Noted Date Comments Leflunomide Rash 07/08/2014 Sulfa Antibiotics Rash 01/25/2011 documented as of this encounter (statuses as of 04/04/2023) Medications Medication Sig Dispensed Refills Start Date [...] as of this encounter (statuses as of 04/04/2023) Active Problems Problem Noted Date Diagnosed Date [...] as of this encounter (statuses as of 04/04/2023) Resolved Problems Problem Noted Date Diagnosed Date [...] as of this encounter (statuses as of 04/04/2023) Immunizations Name Administration Dates Next Due COVID-19 [...] as of this encounter Progress Notes * Mirza Chapman, DO - 04/04/2023 11:31 AM EDT ORTHOPAEDIC SURGERY - Clinic Note SUBJECTIVE: Lore Brito is a 67 year old female. Chief Complaint Patient presents with Follow Up Left knee HPI: She is doing well about 4 months removed from left knee replacement. She has been performing home exercises but not to the degree she states she should be. Overall she is pleased with her level of function. She reports no pain. Review of Systems: Constitutional ROS: No fevers, sweats, or chills Cardiovascular ROS: No chest pain Gastrointestinal ROS: No abdominal pain Musculoskeletal/Extremities ROS: No pain Neurologic ROS: No numbness or tingling Review of patient's allergies indicates: Allergen Reactions Arava [Leflunomide] Rash Sulfa Antibiotics Rash Current Outpatient Medications Medication Sig Dispense Refill [...] as needed for Wheezing. 18 g 1 Hydroxychloroquine Sulfate 200 MG Oral Tablet (Plaquenil) take 1 tablet by mouth at bedtime 90 Tablet 3 Orencia 125 MG/ML Subcutaneous Solution Prefilled Syringe (Abatacept) Inject 125 mg under the skin once a week. 4 mL 11 Folic Acid 1 MG Oral Tablet take 1 tablet by mouth once daily 90 Tablet 3 hydroCHLOROthiazide 25 MG Oral Tablet (Hydrodiuril) Take [...] DAY IN THE MORNING 90 Tablet 3 Metoprolol Succinate ER 25 MG Oral Tablet Extended Release 24 Hour (toPROL XL) TAKE ONE TABLET BY MOUTH EVERY MORNING 90 Tablet 3 oxyCODONE-Acetaminophen 5-325 MG Oral Tablet (Percocet) Take 1 Tablet by mouth every 4 hours as needed for Pain, Severe. 30 Tablet 0 predniSONE 5 MG Oral Tablet (Deltasone) take [...] 1 CAPSULE BEFORE BEDTIME 180 Capsule 3 Temazepam 30 MG Oral Capsule (Restoril) Take 1 Capsule by mouth at bedtime as needed for Sleep. 30 Capsule 3 HYDROcodone-Acetaminophen 5-325 MG Oral Tablet Take 1 Tablet by mouth every 6 hours as needed for Pain, Moderate. For ongoing therapy. May fill 02/11/23 or later 120 Tablet 0 Albuterol Sulfate 0.63 MG/3ML Inhalation Nebulization Solution (Accuneb) Inhale 1 Vial via nebulizer every 4 hours as needed for Wheezing. 300 mL 1 No current facility-administered medications for this visit. Patient Active Problem List Diagnosis Code HTN, goal below 130/80 I10 Rheumatoid arthritis involving multiple sites with positive rheumatoid factor (HCC) M05.79 MEDICATION USE AGREEMENT [id number] Vasculopathy I99.9 Dyslipidemia E78.5 Primary insomnia F51.01 Long-term use of immunosuppressant medication Z79.60 Gastroesophageal reflux disease with esophagitis K21.00 History of CVA (cerebrovascular accident) Z86.73 Reactive airway disease without complication J45.909 Obesity, Class II, BMI 35-39.9, isolated (see actual BMI) E66.9 S/P total knee arthroplasty, left Z96.652 Past Medical History: Diagnosis Date Arthritis, rheumatoid [...] complication 06/06/2021 TIA (transient ischemic attack) 2000 Past Surgical History: Procedure Laterality Date ARTHROPLASTY KNEE TOTAL Left 12/10/2022 ROBOTIC ARTHROPLASTY KNEE TOTAL performed by Mirza Chapman DO at OR [facility] COLONOSCOPY, DIAGNOSTIC (RECTUM) 03/03/2019 adenomatous polyp, diverticulosis, repeat 5 yrs/COLONOSCOPY FLEXIBLE PROXIMAL DIAGNOSTIC performed by Elaine Sauceda DO at ENDOSCOPY [facility] EGD, FLEXIBLE, DIAGNOSTIC 03/03/2019 gastric irritation on bx/ESOPHAGOGASTRODUODENOSCOPY (EGD), FLEXIBLE, TRANSORAL, DIAGNOSTIC performed by Elaine Sauceda DO at ENDOSCOPY [facility] INFORMATION Bilateral B/l CTR. INFORMATION Tubal ligation. PUNCTURE DRAINAGE BREAST CYST Right 2018 benign REMOVAL OF APPENDIX REMOVAL OF TONSILS, UNDER AGE 10 Social History Tobacco Use Smoking status: Former Types: Cigarettes Quit date: 12/01/1998 Years since quittin.3 Smokeless tobacco: Never Vaping Use Vaping Use: Never used Substance Use Topics Alcohol use: Yes Comment: rarely Drug use: No Family history: Noncontributory OBJECTIVE: Diagnostic Testing: Updated x-rays of the left knee were obtained, viewed and interpreted in the office today demonstrating evidence of stable total knee prosthesis in anatomic alignment without evidence of hardware complication or prosthetic loosening. Vital Signs: There were no vitals taken for this visit. Physical Exam: Examination of the left knee reveals well-healed surgical scar without evidence of complication. There is no erythema. No warmth. She exhibits full extension and flexion to about 110 actively. Collateral stability intact. She has good overall quad strength. Sensation intact. Pulses palpable. Gaitassessment is nonantalgic and of normal derrick. ASSESSMENT: Status post total knee replacement, left (Primary) - XR KNEE 3 VIEWS Follow Up: Return in about 8 months (around 12/03/2023). PLAN: She is doing well following her left knee replacement. She will continue activities as tolerated. We discussed the importance of ongoing rehabilitation via home exercise program. I will see her back in roughly 8 months for her 1 year postoperative evaluation with repeat x-rays left knee before being seen. All questions answered. This chart was completed in part utilizing [employer]. Speech Voice Recognition Software. Grammatical errors, random word insertions, pronoun errors, and incomplete sentences are an occasional consequence of this system due to software limitations, ambient noise, and hardware issues. Any formal questions or concerns about the content, text, or information contained within the body of this dictation should be directly addressed to the provider for clarification. Mirza Chapman DO 04/04/2023 11:31 AM documented in this encounter Nursing Notes * Dana Jewell MED ASSIST - 04/04/2023 11:19 AM EDT Pt presents today for follow up left TKA, DOS 12/10/2022. documented in this encounter Plan of Treatment Upcoming Encounters Date Type Department Care Team (Late st Contact Info) Description 05/16/2023 9:20 AM EST Office [facility] [address] [place] [address] Josh Sierra MD [address] [place] [address] [place] [address] 06/28/2023 10:20 AM EST Office Visit Family Practice [facility] [address] [place] [address] Ellis Matos MD [address] [place] [address] 12/12/2023 10:00 AM EDT Office Visit Orthopaedics [facility] [address] [place] [address] Mirza Chapman DO [address] [place] [address] Pending Results Name Type Priority Associated Diagnoses Date /Time XR KNEE 3 VIEWS Medical Imaging Routine Status post total knee replacement, left 04/04/2023 11:25 AM EDT Scheduled Procedures Name Priority Associated Diagnoses Date/Ti [...] this encounter Medical Devices Implanted Type Area Gutter Installer Device Identifier Shelf Expiration Date Model / Serial / Lot Knee X3 Ins Pos Cs Sz3 11 - [id number] Implanted:Qty: 1 on 12/10/2022 by Mirza Chapman DO at OR [facility] Left: Knee KATIE : ORTHOPAEDICS 08/26/2027 [id number] / / [id number] documented as of this encounter Visit Diagnoses Diagnosis Status post total knee replacement, left- Primary documented in this encounter Advance Directives Documents on File Type Date Recorded Patient Replanting Machine Crew 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 Question Answer Comments Discussion of Advance Directives occurred with: Patient Care Teams Foot Roentgenologist Relationship Specialty Start Date End Date Ellis Matos MD [address] [place] [address] PCP - General Family Medicine 11/24/18 documented as of this encounter
--- OUTSIDE RECORDS SUMMARY | 2023-08-24 08:33 | External Medical Summary | Summary of Care ---
Author Name Unknown Organization [facility] Address [address] [facility] [place] [address] Phone [phone] Care Team Providers Care Sales Project Coordinator Name Role Phone Ellis Matos MD Primary Care Provider [phone] Reason for Visit * Reason Comments Outpatient Testing Encounter Details Date Type Department Care Team (Late st Contact Info) Description 05/13/2023 12:00 PM EST [facility] [address] [facility] [phone] [facility] [address] [place] [address] Encounter for long-term (current) use of medications Allergies Active Allergy Reactions Criticality Noted Date Comments Leflunomide Rash 07/08/2014 Sulfa Antibiotics Rash 01/25/2011 documented as of this encounter (statuses as of 05/13/2023) Medications Medication Sig Dispensed Refills Start Date [...] MORNING 90 Tablet 3 08/20/2022 08/20/2023 Active oxyCODONE-Acetamino phen 5-325 MG Oral Tablet [...] once daily 90 Tablet 2 04/24/2023 Active documented as of this encounter (statuses as of 05/13/2023) Active Problems Problem Noted Date Diagnosed Date [...] as of this encounter (statuses as of 05/13/2023) Resolved Problems Problem Noted Date Diagnosed Date [...] as of this encounter (statuses as of 05/13/2023) Immunizations Name Administration Dates Next Due COVID-19 [...] 05/16/2023 9:20 AM EST Office Visit Rheumatology [facility] [address] [place] [address] Josh Sierra MD [address] [place] [address] 06/28/2023 10:20 AM EST Office Visit Family Practice [facility] [address] [facility] [place] [address] Ellis Matos MD [address] [place] [address] 12/12/2023 10:00 AM EDT Office Visit Orthopaedics [facility] [address] [place] [address] Mirza Chapman, [address] [place] [address] Pending Results Name Type Priority Associated Diagnoses Date /Time LIPID PANEL WITH DIRECT LDL IF TG IS HIGH Lab Routine Encounter for long-term (current) use of medications 05/13/2023 11:39 AM EST Scheduled Procedures Name Priority Associated [...] Additional history exists Lipid Panel 02/01/2028 01/31/2023, 10/2021, 11/10/2019, Additional history exists DXA Scan 04/16/2029 04/16/2022, 11/2015, 02/07/2016 GARDASIL-HPV IMMUNIZATION SERIES Aged Out No longer eligible based on patient's age to complete this topic Hepatitis B Aged Out No longer eligi ble based on patient's age to complete this topic MENINGOCOCCAL (MENACTRA/MENVEO) Aged Out No longer eligible based on patient's age to complete this topic documented as of this encounter Medical Devices Implanted Type Area Aquacultural Worker Supervisor Device Identifier Shelf Expiration Date Model / Serial / Lot Knee X3 Ins Pos Cs Sz3 11 - [id number] Implanted:Qty: 1 on 12/10/2022 by Mirza Chapman, DO at OR [facility] Left: Knee KATIE : ORTHOPAEDICS 08/26/2027 [id number]-G-[id number] -[id number] / / [id number] documented as of this encounter Visit Diagnoses Diagnosis Encounter for long-term (current) use of medications Encounter for long-term (current) use of other medications documented in this encounter Advance Directives Documents on File Type Date Recorded Patient Gravel Roofer 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 Question Answer Comments Discussion of Advance Directives occurred with: Patient Care Teams Sales Project Coordinator Relationship Specialty Start Date End Date Ellis Matos MD [address] [place] [address] PCP - General Family Medicine 11/24/18 documented as of this encounter
--- OUTSIDE RECORDS SUMMARY | 2023-08-24 08:33 | External Medical Summary ---
Author Name Unknown Address Unknown Organization [id number]:[facility] [place] [address] [facility] [place] [address] Laboratory Report Ordering Provider Test Date Status MANOLO RIZVI 05/13/2023 11:39:24 Final Observation Date Value Abnormality Reference (Units ) Status Triglyceride 05/13/2023 11:39:24 118 <=174 ( mg/dL) Final Triglyceride Reference Range s (mg/dL):
<150 Acceptable
150-174 Borderline high
175-499 High
>=500 Very high Cholesterol 05/13/2023 11:39:24 202 Above high normal <200 (mg/dL) Final Total Cholesterol Reference Ranges (mg/dL):
<200 Desirable
200-239 Borderline high
>=240 High HDL 05/13/2023 11:39:24 59 >49 (mg/dL ) Final HDL Cholesterol Reference Ra nges (mg/dL):
>=60 High (Desirable)
<50 Low (Undesirable) For Females
<40 Low (Undesirable) For Males NON-HDL CHOLESTEROL 05/13/2023 11:39:24 143 <=159 (mg/dL) Final Non-HDL Cholesterol Referenc e Range (mg/dL):
<100 Target level for high risk ASCVD patient
<130 Optimal for general population
130-159 Near optimal for general population
160-189 Borderline High
190-219 High
>=220 Very High LDL, (calculated) 05/13/2023 11:39:24 119 <= 129 (mg/dL) Final LDL Cholesterol Reference Ra nges (mg/dL):
<70 Target level for high risk ASCVD patient
<100 Optimal for general population
100-129 Near optimal for general population
130-159 Borderline high
160-189 High
>=190 Very high Performing Location [facility] [place] - [address] [facility] [address]
--- OUTSIDE RECORDS SUMMARY | 2023-08-24 08:33 | External Medical Summary | Summary of Care ---
Author Name Unknown Organization [facility] Address [address] [place] [facility] [place] [address] Phone [phone] Care Team Providers Care Machine Turner Name Role Phone Ellis Matos MD Primary Care Provider [phone] Encounter Details Date Type Department Care Team [...] Chapman DO [address] [place] [address] 05/16/2023 Office Visit Rheumatology Josh Sierra MD [address] [place] [address] 06/28/2023 Office Visit Family Medicine Ellis Matos MD [address] [place] [address] Scheduled Procedures Name Priority Associated Diagnoses Date/Ti [...] this encounter Medical Devices Implanted Type Area Aerographer Device Identifier Shelf Expiration Date Model / Serial / Lot Knee X3 Ins Pos Cs Sz3 11 - [id number] Implanted:Qty: 1 on 12/10/2022 by Mirza Chapman DO at OR [facility] Left: Knee KATIE : ORTHOPAEDICS 08/26/2027 [id number] / / [id number] documented as of this encounter Advance Directives Documents on File Type Date Recorded Patient Neuroscience Director Na 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 Question Answer Comments Discussion of Advance Directives occurred with: Patient Care Teams Machine Turner Relationship Specialty Start Date End Date Ellis Matos MD [address] [place] [address] PCP - General Family Medicine 11/24/18 documented as of this encounter
--- OUTSIDE RECORDS SUMMARY | 2023-08-24 08:33 | External Medical Summary ---
Author Name Unknown Address Unknown Organization K0G:[facility] - [address] [place] [address] Laboratory Report Ordering Provider Test Date Status SUZANNA FELDER 05/16/2023 10:19:48 Final Observation Date Value Abnormality Reference (Units ) Status SYNC LEUKOCYTES IN BLOOD BY AUTOMATED COUNT 05/16/2023 10:19:48 11.10 Above high normal 4.00-10.80 (K/uL) Final Segs 05/16/2023 10:19:48 76.0 Above high normal 40.0-75.0 (%) Final Lymphs % 05/16/2023 10:19:48 15.1 Below low normal 18.0-42.0 (%) Final Monos 05/16/2023 10:19:48 6.2 1.0-11.0 (%) Final Eosinophils 05/16/2023 10:19:48 2.4 0.0-6.0 (%) Final Basos 05/16/2023 10:19:48 0.3 0.0-2.0 (%) Final Absolute Segs 05/16/2023 10:19:48 8.43 Above high normal 1.80-7.70 (K/uL) Final Lymphs, absolute 05/16/2023 10:19:48 1.68 1.00-4.80 (K/ul) Final Monos, Abs 05/16/2023 10:19:48 0.69 0.00-1.10 (K/uL) Final Eos, Abs 05/16/2023 10:19:48 0.27 0.00-0.70 (K/uL) Final Basos, Abs 05/16/2023 10:19:48 0.03 0.00-0.20 (K/uL) Final Performing Location [facility] - [address] [place] [address]
--- OUTSIDE RECORDS SUMMARY | 2023-08-24 08:33 | External Medical Summary | Summary of Care ---
Author Name Unknown Organization [facility] Address [address] [facility] [place] [address] Phone [phone] Care Team Providers Care Cob Sawyer Name Role Phone Ellis Matos MD Primary Care Provider [phone] Encounter Details Date Type Department Care Team Description 03/10/2023 Patient Reported Data Patient Survey Ortho FORCE Allergies Active Allergy Reactions Severity Noted Date Comments Leflunomide Rash 07/08/2014 Sulfa Antibiotics Rash 01/25/2011 documented as of this encounter (statuses as of 03/10/2023) Medications Medication Sig Dispensed Refills Start Date [...] as of this encounter (statuses as of 03/10/2023) Active Problems Problem Noted Date S/P total [...] as of this encounter (statuses as of 03/10/2023) Resolved Problems Problem Noted Date Resolved Date History of 2019 novel coronavirus disease (COVID -19) 08/02/2021 12/01/2021 Primary osteoarthritis of both knees 11/30/2020 12/25/2022 Primary osteoarthritis of left knee 12/13/2017 11/30/2020 Preoperative general physical examination 201612/25/2022 Encounter for long-term (current) use of medicat ions 08/11/2012 11/24/2018 Overview: ICD-10 update of inactive term ARTHRITIS,RHEUMATOID 01/20/2016 documented as of this encounter (statuses as of 03/10/2023) Immunizations Name Administration Dates Next Due COVID-19 [...] Chapman DO [address] [place] [address] 05/16/2023 Office Visit Rheumatology Josh Sierra MD [address] [place] [address] 06/28/2023 Office Visit Family Medicine Ellis Matos MD [address] [place] [address] Scheduled Procedures Name Priority Associated Diagnoses Date/Ti [...] this encounter Medical Devices Implanted Type Area Grocery Deliverer Device Identifier Shelf Expiration Date Model / Serial / Lot Knee X3 Ins Pos Cs Sz3 11 - [id number] Implanted:Qty: 1 on 12/10/2022 by Mirza Chapman DO at OR 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 Question Answer Comments Discussion of Advance Directives occurred with: Patient Care Teams Cob Sawyer Relationship Specialty Start Date End Date Ellis Matos MD [address] [place] [address] PCP - General Family Medicine 11/24/18 documented as of this encounter
--- OUTSIDE RECORDS SUMMARY | 2023-08-24 08:33 | External Medical Summary | Summary of Care ---
Author Name Unknown Organization [facility] Address [address] [place] [facility] [place] [address] Phone [phone] Care Team Providers Care Systems Technologist Name Role Phone Ellis Matos MD Primary Care Provider [phone] Encounter Details Date Type Department Care Team [...] Chapman DO [address] [place] [address] 05/16/2023 Office Visit Rheumatology Josh Sierra MD [address] [place] [address] 06/28/2023 Office Visit Family Medicine Ellis Matos MD [address] [place] [address] Scheduled Procedures Name Priority Associated Diagnoses Date/Ti [...] this encounter Medical Devices Implanted Type Area Product Development Intern Device Identifier Shelf Expiration Date Model / Serial / Lot Knee X3 Ins Pos Cs Sz3 11 - [id number] Implanted:Qty: 1 on 12/10/2022 by Mirza Chapman DO at OR [facility] Left: Knee KATIE : ORTHOPAEDICS 08/26/2027 5531-G-311 -[id number] / / [id number] documented as of this encounter Advance Directives Documents on File Type Date Recorded 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 Question Answer Comments Discussion of Advance Directives occurred with: Patient Care Teams Systems Technologist Relationship Specialty Start Date End Date Ellis Matos MD [address] [place] [address] PCP - General Family Medicine 11/24/18 documented as of this encounter
--- OUTSIDE RECORDS SUMMARY | 2023-08-24 08:33 | External Medical Summary | Summary of Care ---
Author Name Unknown Organization [facility] Address [address] [facility] [place] [address] Phone [phone] Care Team Providers Care Coin Collector Name Role Phone Ellis Matos MD Primary Care Provider [phone] [phone] Encounter Details Date Type Department Care Team Description 03/11/2023 Patient Reported Data Patient Survey Ortho FORCE Allergies Active Allergy Reactions Severity Noted Date Comments Leflunomide Rash 07/08/2014 Sulfa Antibiotics Rash 01/25/2011 documented as of this encounter (statuses as of 03/11/2023) Medications Medication Sig Dispensed Refills Start Date [...] as of this encounter (statuses as of 03/11/2023) Active Problems Problem Noted Date S/P total [...] as of this encounter (statuses as of 03/11/2023) Resolved Problems Problem Noted Date Resolved Date History of 2019 novel coronavirus disease (COVID -19) 08/02/2021 12/01/2021 Primary osteoarthritis of both knees 11/30/2020 12/25/2022 Primary osteoarthritis of left knee 12/13/2017 11/30/2020 Preoperative general physical examination 201612/25/2022 Encounter for long-term (current) use of medicat ions 08/11/2012 11/24/2018 Overview: ICD-10 update of inactive term ARTHRITIS,RHEUMATOID 01/20/2016 documented as of this encounter (statuses as of 03/11/2023) Immunizations Name Administration Dates Next Due COVID-19 [...] Chapman DO [address] [place] [address] 05/16/2023 Office Visit Rheumatology Josh Sierra MD [address] [place] [address] 06/28/2023 Office Visit Family Medicine Ellis Matos MD [address] [place] [address] Scheduled Procedures Name Priority Associated Diagnoses Date/Ti [...] this encounter Medical Devices Implanted Type Area Materials Associate Device Identifier Shelf Expiration Date Model / Serial / Lot Knee X3 Ins Pos Cs Sz3 11 - [id number] Implanted:Qty: 1 on 12/10/2022 by Mirza Chapman DO at OR [facility] Left: Knee KATIE : ORTHOPAEDICS 08/26/2027 5531-G-311 -E / / [id number] documented as of this encounter Advance Directives Documents on File Type Date Recorded 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 Question Answer Comments Discussion of Advance Directives occurred with: Patient Care Teams Coin Collector Relationship Specialty Start Date End Date Ellis Matos MD [address] [place] [address] PCP - General Family Medicine 11/24/18 documented as of this encounter
--- OUTSIDE RECORDS SUMMARY | 2023-08-24 08:33 | External Medical Summary | Summary of Care ---
Author Name Unknown Organization [facility] Address [address] [facility] [place] [address] Phone [phone] Care Team Providers Care Day Care Assistant Name Role Phone Ellis Matos MD Primary Care Provider [phone] [phone] Reason for Visit * Reason Comments eRx-Medication Refill Encounter Details Date Type Department Care Team (Late st Contact Info) Description 04/24/2023 Refill Rheumatology [place] [address] [employer] [place] [address] Bradford Briseno MD [facility] [place] [address] Rheumatoid arthritis involving multiple sites with positive rheumatoid factor (HCC) Allergies Active Allergy Reactions Criticality Noted Date Comments Leflunomide Rash 07/08/2014 Sulfa Antibiotics Rash 01/25/2011 documented as of this encounter (statuses as of 04/26/2023) Medications Medication Sig Dispensed Refills Start Date [...] once daily 90 Tablet 3 05/11/2022 Active hydroCHLOROthiazi de 25 MG Oral Tablet [...] MORNING 90 Tablet 3 08/20/2022 4 Active oxyCODONE-Acetami nophen 5-325 MG Oral Tablet (Percocet) Take 1 Tablet by mouth every 4 hours as needed for Pain, Severe. 30 Tablet 0 12/11/2022 Active predniSONE 5 MG Oral Tablet (Deltasone)Indica [...] at bedtime 90 Tablet 3 04/26/2023 Active Hydroxychloroquin e Sulfate 200 MG Oral Tablet (Plaquenil)Indica tions:Rheumatoid arthritis involving multiple sites with positive rheumatoid factor (HCC) take 1 tablet by mouth at bedtime 90 Tablet 3 03/22/2022 3 Discontinued documented as of this encounter (statuses as of 04/26/2023) Active Problems Problem Noted Date Diagnosed Date [...] as of this encounter (statuses as of 04/26/2023) Resolved Problems Problem Noted Date Diagnosed Date [...] as of this encounter (statuses as of 04/26/2023) Immunizations Name Administration Dates Next Due COVID-19 [...] Notes * Telephone Encounter - Isacc Nova [facility] - 04/26/2023 11:07 AM ESTSigned Prescriptions: Disp Refills Hydroxychloroquine Sulfate 200 MG Oral Tab*90 Tab*3 Sig: take 1 tablet by mouth at bedtimeAuthorizing Provider: BRADFORD BRISENO User: ISACC NOVA- * Telephone Encounter - Isacc Nova RP - 04/26/2023 11:06 AM EST Rheumatology: Refill Request(s) Per review of the refill parameters, Medication was refilled Isacc Nova [facility] Clinical Pharmacist Rheumatology Department 04/26/2023,11:06 AM * Telephone Encounter - Tameka Maier practice support specialist - 04/24/2023 4:23 PM EST Pending Prescriptions: Disp Refills Hydroxychloroquine Sulfate 200 MG Oral Tab*90 Tab*3 Sig: take 1 tablet by mouth at bedtime * Telephone Encounter - Tameka Maier practice support specialist - 04/24/2023 4:23 PM EST Patient is up to date for office visits. Pending Prescriptions: Disp Refills Hydroxychloroquine Sulfate 200 MG Oral Ta*90 Tab*3 Sig: take 1 tablet by mouth at bedtime Last Visit: 07/25/2022 (in office), Visit date not found (telemedicine) Next Visit: 05/16/2023 If no future appointments scheduled, and last appointment is greater than a year ago, please schedule patient for a follow-up appointment Last date the medication was ordered: 03/22 [facility]acy: [id number] [address] [place] [address] Is this request for a controlled substance?No it is not controlled. Urine Drug Screen: Results for orders placed [...] AM POTASSIUM 4.4 05/31/2020 03:59 PM LDLCALC 133 (H) 01/31/2023 10:54 AM LDLCALC 148 (H) 11/10/2019 03:32 PM LDLDIRECT NOT APPLICABLE 11/10/2019 03:32 PM ALT 17 01/31/2023 10:54 AM ALT 24 05/31/2020 03:59 PM HGBA1C 5.4 11/20/2022 11:26 AM documented in this encounter Plan of Treatment Upcoming Encounters Date Type Department Care Team (Late st Contact Info) Description 05/16/2023 9:20 AM EST Office Visit Rheumatology [address] [place] [address] Bradford Briseno MD [address] [place] [address] [place] [address] 06/28/2023 10:20 AM EST Office Visit Family Practice [facility] [address] [place] [address] Ellis Matos MD [address] [place] [address] 12/12/2023 10:00 AM EDT Office Visit Orthopaedics [facility] [address] [place] [address] Mirza Chapman DO [address] [place] [address] Scheduled Procedures Name Priority Associated Diagnoses Date/Ti me COLONOSCOPY FLEXIBLE PROXIMAL DIAGNOSTIC Recall History of colon polyps Health Maintenance Due Date Last Done Comments Zoster Vaccines (1 of 2) 1972 DTaP,Tdap,and Td Vaccines (1 - Tdap) 03/03/2013 03/02/2013 Depression Screening 02/16/2021 02/17/2020 COVID-19 Vaccine (5 - 24 season) 2023 08/22/2021, 02/06/2021, 07/29/2020, Additional history [...] Additional history exists Lipid Panel 02/01/2028 01/31/2023, 070 10/2021, 11/10/2019, Additional history exists DXA Scan [...] this encounter Medical Devices Implanted Type Area Electrician Locomotive Device Identifier Shelf Expiration Date Model / Serial / Lot Knee X3 Ins Pos Cs Sz3 11 - [id number] Implanted:Qty: 1 on 12/10/2022 by Mirza Chapman DO at OR [facility] Left: Knee KATIE : ORTHOPAEDICS 08/26/2027 [id number]-G-[id number] -[id number] / / [id number] documented as of this encounter Visit Diagnoses Diagnosis Rheumatoid arthritis involving multiple sites with positive rheumatoid factor (HCC) documented in this encounter Advance Directives Documents on File Type Date Recorded Patient Station Superintendent 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 Question Answer Comments Discussion of Advance Directives occurred with: Patient Care Teams Day Care Assistant Relationship Specialty Start Date End Date Ellis Matos MD [address] [place] [address] PCP - General Family Medicine 11/24/18 documented as of this encounter
--- OUTSIDE RECORDS SUMMARY | 2023-08-24 08:33 | External Medical Summary | Summary of Care ---
Author Name Unknown Organization [facility] Address [address] [facility] [place] [address] Phone [phone] Care Team Providers Care Balance Staff Inspector Name Role Phone Gael De La Cruz MD Primary Care Provider [phone] Reason for Visit * Reason Comments eRx-Medication Refill Encounter Details Date Type Department Care Team (Late st Contact Info) Description 04/24/2023 Refill Family Practice [facility] [address] [facility] [place] [address] Gael De La Cruz MD [address] [facility] [place] [id number] HTN, goal below 130/80 Allergies Active Allergy [...] for Wheezing. 18 g 1 10/13/2021 Active Hydroxychloroquin e Sulfate 200 MG Oral [...] or later 120 Tablet 0 04/24/2023 Active Metoprolol Succinate ER 25 MG Oral Tablet Extended Release 24 Hour (toPROL XL)Indications:HT N, goal below 130/80 take 1 tablet by mouth once daily 90 Tablet 2 04/24/2023 Active Metoprolol Succinate ER 25 MG Oral Tablet Extended Release 24 Hour (toPROL XL)Indications:HT N, goal below 130/80 TAKE ONE TABLET BY MOUTH EVERY MORNING 90 Tablet 3 08/07/2022 3 Discontinued documented as of this encounter [...] Notes * Telephone Encounter - Shawn Melvin RPh - 04/24/2023 4:38 PM EST Signed Prescriptions: Disp Refills Metoprolol Succinate ER 25 MG Oral Tablet *90 Tab*2 Sig: take 1 tablet by mouth once dailyAuthorizing Provider: GAEL DE LA CRUZ User: SHAWN MELVIN documented in this encounter Plan of Treatment Upcoming Encounters Date Type Department Care Team (Late st Contact Info) Description 05/16/2023 9:20 AM EST Office Visit Rheumatology [place] [address] [place] [address] Josh Sierra MD [facility] [employer] [place] [address] 06/28/2023 10:20 AM EST Office Visit Family Practice [facility] [address] [place] [address] Gael De La Cruz MD [address] [place] [address] 12/12/2023 10:00 AM EDT Office Visit Orthopaedics [facility] [address] [place] [phone] Mirza Chapman DO [address] [facility] [place] [address] Scheduled Procedures Name Priority Associated Diagnoses Date/Ti [...] this encounter Medical Devices Implanted Type Area Parts Delivery Driver Device Identifier Shelf Expiration Date Model / Serial / Lot Knee X3 Ins Pos Cs Sz3 11 - [id number] Implanted:Qty: 1 on 12/10/2022 by Mirza Chapman, at OR [facility] Left: Knee KATIE : ORTHOPAEDICS 08/26/2027 [id number] / / [id number] documented as of this encounter Visit Diagnoses Diagnosis HTN, goal below 130/80 Unspecified essential hypertension documented in this encounter Advance Directives Documents on File Type Date Recorded Patient Data Coordinator 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 Question Answer Comments Discussion of Advance Directives occurred with: Patient Care Teams Balance Staff Inspector Relationship Specialty Start Date End Date Gael De La Cruz MD [address] [place] [address] PCP - General Family Medicine 11/24/18 documented as of this encounter
--- OUTSIDE RECORDS SUMMARY | 2023-08-24 08:33 | External Medical Summary ---
Author Name Unknown Address Unknown Organization [id number]:[facility] [place] [address] [place] [id number] Laboratory Report Ordering Provider Test Date Status SUZANNA FELDER 05/16/2023 10:24:38 Final Drugs that require complianc e testing:

Opioids:
Hydrocodone: Quantity 5/325 Date/Time of last Dose once daily - did miss yesterday and has not taken today

Benzodiazepines
Temazepam: Quantity 30mg Date/Time of last Dose nightly

Cutoff Concentrations:
Drug Level
Hydrocodone 40 ng/mL
Hydromorphone 40 ng/mL
Dihydrocodeine 40 ng/mL

This test was developed and its performance characteristics determined by [facility]. It has not been cleared or approved by the [place] Food and Drug Administration. Observation Date Value Abnormality Reference (Units ) Status METHODOLOGY 05/16/2023 10:24:38 LC-MS/MS Final HYDROcodone cutoff [Mass/volume] in Urine for Confirmatory method 05/16/2023 10:24:38 Negative Negative Final HYDROmorphone [Mass/volume] in Urine 05/16/2023 10:24:38 Negative Negative Final Dihydrocodeine [Mass/volume] in Urine by Confirmatory method 05/16/2023 10:24:38 Negative Negative Final Performing Location [facility] [place] [facility] [place] [address] [address]
--- NOTE | 2023-08-24 13:36 | Hospitalist Progress Note ---
Date of Service August 24, 2023 Assessment & Plan (1) Abdominal pain, acute, epigastric: (2) Small bowel obstruction: Plan: Patient is a 67-year-old female with PMH HTN, dyslipidemia, CVA, RA, chronic prednisone use, vasculopathy presents to the ER with abdominal pain, nausea that started today. Denies vomiting, fever/chills. Small bowel obstruction H/O appendectomy --CT ABD:Unremarkable CT angiogram of the abdominal aorta and its major branches. There are decompressed loops of small bowel in the left mid to lower abdomen which appear hyperemic with surrounding mesenteric infiltration and fluid. The appearance is consistent with a nonspecific enteritis. The proximal small bowel loops are distended, and there is an apparent focal transition point in the left mid abdomen. Although this may be related to an associated ileus, a developing small bowel obstruction is not excluded. The distal small bowel loops are decompressed. Clinical correlation will be essential. No intraperitoneal free air is identified. There is no pneumatosis intestinalis or portal venous gas. Cardiomegaly and small pleural effusions. -- Conservative management Continue IV fluids, clear liquid diet Appreciate surgery input Clinically improving on KUB today (3) Rheumatoid arthritis: (4) Steroid dependence: Plan: Follows with Dr. Sierra On abatacept and methotrexate weekly Continue prednisone, hydroxychloroquine (5) HTN (hypertension): Plan: BP stable Continue losartan, metoprolol succinate HCTZ--hold for now (6) GERD (gastroesophageal reflux disease): Plan: Continue PPI (7) Dyslipidemia: Plan: Resume pravastatin as able (8) CVA (cerebral vascular accident): Plan: History CVA Continue aspirin Resume statin as able (9) Obesity: Plan: BMI: 33 DVT Prophylaxis SCDs for now Code Status Full Code Admission and Anticipated Discharge Date Admission Date: August 23, 2023 Subjective Patient is seen and examined at bedside Abdominal pain much improved Denies any nausea, vomiting, chest pain, dyspnea + Flatus, no bowel movement today Offers no other complaints Review of Systems Review of Systems: All systems reviewed & are unremarkable except as noted in Subjective Physical Exam Physical Exam: Physical Exam: Vitals signs as noted above General Appearance:Obese, no apparent distress Head: normocephalic, Atraumatic Eyes: normal inspection, EOMI Neck: supple, Trachea midline Respiratory/Chest: Normal breath sounds, CTA, No accessory muscle use Cardiovascular: S1, S2, No murmur Abdomen/GI:Soft, mild tender, decreased Bowel sounds Extremities/Musculoskeletal:normal inspection, Trace edema Neurologic/Psych:AAOX3, grossly no focal neurological deficits Skin: normal color, warm Results & Data Results & Data Vital Signs (Past 12 Hours) Vital Signs Temp Pulse Pulse Resp BP Pulse Ox O2 Del Method 08/24/23 11:43 36.8 C 70 18 148/84 H 95 Room Air 08/24/23 07:51 36.7 C 62 20 127/80 94 Room Air 08/24/23 07:18 Room Air 08/24/23 07:08 66 08/24/23 02:45 37 C 67 18 109/70 93 Room Air Laboratory Results Short CBC 08/23/23 08/24/23 Range/Units 14:40 06:44 WBC 13.70 H 7.97 (4.8-10.8) K/ul Hgb 14.3 13.5 (12.0-16.0) g/dl Hct 42.5 39.6 (37.0-47.0) % Plt Count 292 264 (130-400) K/uL BMP 08/23/23 08/24/23 14:40 06:44 Sodium 133 L 136 Potassium 3.6 3.6 Chloride 97 L 101 Carbon Dioxide 28 29 BUN 14 10 Creatinine 0.67 0.66 Glucose 117 H 101 H Calcium 9.7 8.9 Liver Function 08/23/23 Range/Units 14:40 Total Bilirubin 0.9 (0.2-1.0) mg/dl AST 13 (13-39) U/L ALT 12 (7-52) U/L Alkaline Phosphatase 61 (34-104) U/L Albumin 4.1 (3.4-5.0) gm/dl Urine 08/23/23 Range/Units 21:14 Urine Color Yellow Urine Appearance Clear (Clear) Urine pH 7.5 (4.5-7.5) Ur Specific [place] 1.025 (1.000-1.030) Urine Protein Negative (Negative) Urine Glucose (UA) Negative (Negative)
--- NOTE | 2023-08-24 13:39 | Surgery Progress Note ---
Date of Service August 24, 2023 Assessment & Plan (1) Small bowel obstruction: (2) Abdominal pain, acute, epigastric: Plan 67-year-old woman with prior history of appendectomy presents with enteritis versus possibly developing small bowel obstruction. today she is feeling much better. She is passing flatus. Advance her diet as tolerated. According to her , he had a similar issue earlier this week. She most likely has enteritis. If she tolerates her diet, she can most likely be discharged home. We will follow peripherally. Admission and Anticipated Discharge Date Admission Date: August 23, 2023 Subjective She is doing better this morning. She is passing flatus. Denies nausea or vomiting. Denies pain. Physical Exam Physical Exam: AFVSS NAD, A&O x 3 abdomen: Soft, nontender, nondistended Results & Data Vital Signs (Past 12 Hours) Vital Signs Temp Pulse Pulse Resp BP Pulse Ox O2 Del Method 08/24/23 11:43 36.8 C 70 18 148/84 H 95 Room Air 08/24/23 07:51 36.7 C 62 20 127/80 94 Room Air 08/24/23 07:18 Room Air 08/24/23 07:08 66 08/24/23 02:45 37 C 67 18 109/70 93 Room Air Laboratory Results 08/24/23 08/23/23 08/23/23 Range/Units 06:44 21:14 14:40 WBC 7.97 13.70 H (4.8-10.8) K/ul RBC 4.32 4.60 (4.20-5.40) M/uL Hgb 13.5 14.3 (12.0-16.0) g/dl POC Hgb 14.6 (12.0-16.0) g/dl Hct 39.6 42.5 (37.0-47.0) % POC Hct 43 (37-47) % MCV 91.7 92.4 (80.0-100.0) fL MCH 31.3 31.1 (25.0-34.0) pg MCHC 34.1 33.6 (32.0-36.0) g/dL RDW Std Deviation 45.1 44.2 (36.4-46.3) fL RDW Coeff of Viraj 13.3 13.2 (11.5-14.5) % Plt Count 264 292 (130-400) K/uL MPV 10.2 10.5 (9.4-12.4) fL Immature Gran % (Auto) 0.5 % Neut % (Auto) 80.5 % Lymph % (Auto) 11.6 % Robeson % (Auto) 6.9 % Eos % (Auto) 0.2 % Baso % (Auto) 0.3 % Neut # (Auto) 11.03 H (1.40-6.50) K/uL Lymph # (Auto) 1.59 (1.20-3.40) K/uL Robeson # (Auto) 0.94 H (0.11-0.59) K/uL Eos # (Auto) 0.03 (0.00-0.50) K/uL Baso # (Auto) 0.04 (0.00-0.20) K/uL Immature Gran # (Auto) 0.07 (0.01-0.20) K/uL PT 11.1 (9.0-12.0) Seconds INR 1.0 (0.9-1.1) POC Sodium 133 L (135-144) mmol/L Sodium 136 133 L (136-145) mmol/L POC Potassium 3.4 (3.3-5.0) mmol/L Potassium 3.6 3.6 (3.5-5.1) mmol/L POC Chloride 96 L (101-112) mmol/L Chloride 101 97 L (98-107) mmol/L Carbon Dioxide 29 28 (21-32) mmol/L POC Total CO2 26 (24-31) mmol/L Anion Gap 6 8 (3-11) POC Anion Gap 14.0 L (16-25) mmol/L POC BUN 13 (7-18) mg/dl BUN 10 14 (6-23) mg/dl Creatinine 0.66 0.67 (0.6-1.2) mg/dl POC Creatinine 0.7 (0.6-1.3) mg/dl Est Cr Clr Drug Dosing 84.2 81.6 ml/min Est GFR ( Amer) 104.5 103.9 ml/min Est GFR (Non-Af Amer) 90.1 89.7 ml/min BUN/Creatinine Ratio 15.2 20.9 H (10-20) Glucose 101 H 117 H (70-99(Fasting)) mg/dl POC Glucose (other) 121 H (70-99) mg/dl Calcium 8.9 9.7 (8.6-10.3) mg/dl POC Ioniz Calcium Mikala 1.14 (1.12-1.32) mmol/l Phosphorus 3.5 (2.5-4.9) mg/dl Magnesium 1.9 (1.7-2.4) mg/dl Total Bilirubin 0.9 (0.2-1.0) mg/dl AST 13 (13-39) U/L ALT 12 (7-52) U/L Alkaline Phosphatase 61 (34-104) U/L Troponin I High Sens 8.0 (0-14) pg/ml Total Protein 6.9 (6.0-8.3) gm/dl Albumin 4.1 (3.4-5.0) gm/dl Globulin 2.8 (2.5-4.0) gm/dl Albumin/Globulin Ratio 1.5 (0.9-2) Lipase 4 L (11-82) U/L Urine Color Yellow Urine Appearance Clear (Clear) Urine pH 7.5 (4.5-7.5) Ur Specific [place] 1.025 (1.000-1.030) Urine Protein Negative (Negative) Urine Glucose (UA) Negative (Negative) Urine Ketones Negative (Negative) Urine Blood Negative (Negative) Urine Nitrite Negative (Negative) Urine Bilirubin Negative (Negative) Urine Urobilinogen Negative (Negative) Ur Leukocyte Esterase Negative (Negative)
[2023-08-25 06:51] LABS: Hematocrit (blood only) 38.9 % (37.0-47.0); Hemoglobin 12.9 g/dl (12.0-16.0); Mean Corpuscular Hemoglobin 30.8 pg (25.0-34.0); Mean Corpuscular Hgb Conc 33.2 g/dL (32.0-36.0); Mean Corpuscular Volume 92.8 fL (80.0-100.0); Mean Platelet Volume 10.4 fL (9.4-12.4); Platelet Count 241 K/uL (130-400); RDW Coefficient of Variation 13.1 % (11.5-14.5); RDW Standard Deviation 44.2 fL (36.4-46.3); Red Blood Count 4.19 M/uL (4.20-5.40); White Blood Count 6.48 K/ul (4.8-10.8)
[2023-08-25 07:08] LABS: BUN Creatinine Ratio 10.5 (10-20); Calcium 8.3 mg/dl (8.6-10.3); Creatinine Clr Calc Pharmacy 97.2 ml/min; Est GFR (African American) 109.6 ml/min; Est GFR (Non-African American) 94.6 ml/min; Magnesium 1.9 mg/dl (1.7-2.4); Potassium 3.7 mmol/L (3.5-5.1)
[2023-08-25] MEDS: POTASSIUM CHLORIDE CRTAB 20 MEQ TABCR PO ONE (10:00)
--- NOTE | 2023-08-25 10:04 | XRay Report ---
XR KUB/Abdomen 1 view CLINICAL HISTORY: R/O SBO TECHNIQUE: 1 view of the abdomen was obtained. Comparison: Comparison is made to chest radiograph 08/24/2023 FINDINGS: Stable surgical clips are seen in the pelvis compatible with prior tubal ligation. Degenerative sheehan es are seen in the visualized skeleton. The bowel gas pattern is nonobstructive. A moderate amount of stool is noted within the large bowel. IMPRESSION: No evidence of small bowel obstruction. ACT 112: Negative or not required by law. Electronically signed by: Tank Carmen M.D. 08/25/2023 10:03 AM
--- NOTE | 2023-08-25 10:21 | Surgery Progress Note ---
Date of Service August 25, 2023 Assessment & Plan (1) Small bowel obstruction: (2) Abdominal pain, acute, epigastric: Plan 67-year-old woman with prior history of appendectomy presents with enteritis versus possibly developing small bowel obstruction. today she is feeling much better. She is passing flatus. Advance her diet as tolerated. According to her , he had a similar issue earlier this week. She most likely has enteritis. If she tolerates her diet, she can most likely be discharged home. We will follow peripherally. Doing well today. Passing flatus. May be discharged home. We will sign off for now. Admission and Anticipated Discharge Date Admission Date: August 23, 2023 Subjective Doing very well this morning. No further pain. Passing flatus. Tolerating diet. Physical Exam Physical Exam: AFVSS NAD, A&O x 3 abdomen: Soft, nontender, nondistended Results & Data Vital Signs (Past 12 Hours) Vital Signs Temp Pulse Pulse Resp BP BP Pulse Ox 08/25/23 09:22 62 08/25/23 08:12 36.7 C 60 18 155/88 H 96 08/25/23 02:57 36.4 C L 58 L 16 150/81 H 95 08/24/23 23:17 36.4 C L 61 16 150/90 H 95 O2 Del Method 08/25/23 09:22 08/25/23 08:12 Room Air 08/25/23 02:57 Room Air 08/24/23 23:17 Room Air
--- NOTE | 2023-08-25 11:31 | Hospitalist Progress Note ---
Date of Service August 25, 2023 Assessment & Plan (1) Abdominal pain, acute, epigastric: (2) Small bowel obstruction: Plan: Patient is a 67-year-old female with PMH HTN, dyslipidemia, CVA, RA, chronic prednisone use, vasculopathy presents to the ER with abdominal pain, nausea that started today. Denies vomiting, fever/chills. Small bowel obstruction H/O appendectomy --CT ABD:Unremarkable CT angiogram of the abdominal aorta and its major branches. There are decompressed loops of small bowel in the left mid to lower abdomen which appear hyperemic with surrounding mesenteric infiltration and fluid. The appearance is consistent with a nonspecific enteritis. The proximal small bowel loops are distended, and there is an apparent focal transition point in the left mid abdomen. Although this may be related to an associated ileus, a developing small bowel obstruction is not excluded. The distal small bowel loops are decompressed. Clinical correlation will be essential. No intraperitoneal free air is identified. There is no pneumatosis intestinalis or portal venous gas. Cardiomegaly and small pleural effusions. -- Conservative management Continue IV fluids Appreciate surgery input Had BM KUB today showed no signs of bowel obstruction Advanced to low fiber diet today Plan to discharge home today (3) Rheumatoid arthritis: (4) Steroid dependence: Plan: Follows with Dr. Sierra On abatacept and methotrexate weekly Continue prednisone, hydroxychloroquine (5) HTN (hypertension): Plan: BP stable Continue losartan, metoprolol succinate HCTZ--hold for now (6) GERD (gastroesophageal reflux disease): Plan: Continue PPI (7) Dyslipidemia: Plan: Resume pravastatin as able (8) CVA (cerebral vascular accident): Plan: History CVA Continue aspirin Resume statin as able (9) Obesity: Plan: BMI: 33 DVT Prophylaxis SCDs for now Code Status Full Code Disposition Home Admission and Anticipated Discharge Date Admission Date: August 23, 2023 Subjective Patient is seen and examined at bedside States feeling better today Abdominal pain resolved Had bowel movement today Denies any nausea, vomiting, chest pain, dyspnea Tolerating current diet No other complaints Eager to get discharged Review of Systems Review of Systems: All systems reviewed & are unremarkable except as noted in Subjective Physical Exam Physical Exam: Physical Exam: Vitals signs as noted above General Appearance:Obese, no apparent distress Head: normocephalic, Atraumatic Eyes: normal inspection, EOMI Neck: supple, Trachea midline Respiratory/Chest: Normal breath sounds, CTA, No accessory muscle use Cardiovascular: S1, S2, No murmur Abdomen/GI:Soft, non tender, + Bowel sounds Extremities/Musculoskeletal:normal inspection, Trace edema Neurologic/Psych:AAOX3, grossly no focal neurological deficits Skin: normal color, warm Results & Data Results & Data Vital Signs (Past 12 Hours) Vital Signs Temp Pulse Pulse Resp BP Pulse Ox O2 Del Method 08/25/23 09:22 62 08/25/23 08:12 36.7 C 60 18 155/88 H 96 Room Air 08/25/23 02:57 36.4 C L 58 L 16 150/81 H 95 Room Air Laboratory Results Short CBC 08/25/23 Range/Units 06:13 WBC 6.48 (4.8-10.8) K/ul Hgb 12.9 (12.0-16.0) g/dl Hct 38.9 (37.0-47.0) % Plt Count 241 (130-400) K/uL BMP 08/25/23 06:13 Sodium 137 Potassium 3.7 Chloride 104 Carbon Dioxide 30 BUN 6 Creatinine 0.57 L Glucose 99 Calcium 8.3 L
--- NOTE | 2023-08-25 11:38 | Discharge Summary ---
Date of Service August 25, 2023 Admission HPI Per Admitting Provider Patient is a 67-year-old female presents to the ER with abdominal pain that started today. This began approximately 24 hours prior to arrival with patient seeing her primary care provider via telemedicine on the morning of just prior to coming to the ER. She reported experiencing upper abdominal pain since this morning and has been burping more feeling intermittent nausea. She denies any fevers chills dysphagia odynophagia vomiting constipation or diarrhea. Last bowel movement was yesterday. Reports two loose BM's yesterday but this in not unusual for patient. Patient reported history of appendectomy 15 years ago. She is steroid-dependent taking prednisone daily for rheumatoid arthritis and takes omeprazole 20 mg twice daily. She reports a history of EGD with ulcers in the past last noted EGD was March 2019 with a normal esophagus and nonbleeding gastric ulcers that were biopsied and negative and normal examined duodenum. Patient had telemedicine visit today and sucralfate was to be given however decision was made to be evaluated at ER instead. Given that her pain was worsening as the day progressed she presented to the ER. Per ER provider her upper abdominal pain/lower chest radiates to her back. Patient has no history of trauma or syncope and no history of similar symptoms in the past. She reports that when symptoms began around 7 AM and initially thought she was hungry so had granola bar and that did not change her pain. Pain progressed throughout the day. She also took Tums at home which did not help. She has no pain in the arms or upper back and no other chest pain. Denies fever/chills, diaphoresis, melena, hematochezia, CHENG, dizziness, syncope, vision changes, neck pain, CP, SOB, orthopnea, palpitations, rhinorrhea, paresthesias, weakness, extremity edema, rashes, urinary symptoms. In ER an EKG was obtained without significantly acute changes. CTA of the chest abdomen pelvis ruled out evidence of dissection. This did find evidence of nonspecific enteritis versus associated ileus versus small bowel obstruction. No free air or pneumatosis was noted. No NG tube was placed at this point as she was stable and not vomiting. Admission Exam Per Admitting Provider General: no acute distress, non-ill appearing, overweight female Head: normocephalic, atraumatic Eyes: conjunctiva non-injected, anicteric ENT: normal inspection external ears, nose, mucous membranes moist Neck: supple, trachea midline Lungs: clear, no respiratory distress, no wheezing/rhonchi/rales CV: RRR, no murmur Abd: normal BS, soft, +tender to palpation epigastric and slight to LLE without rebound or guarding Ext: no cyanosis, no calf tenderness, BLE large without pitting edema Neuro: A&O x 3, no focal deficits noted, normal affect Skin: warm, dry Principal Diagnosis Small bowel obstruction Discharge Data Allergies Allergy/AdvReac Type Severity Reaction Status Date / Time leflunomide [From Arava] AdvReac Unknown Unknown Verified 08/23/23 16:34 Sulfa (Sulfonamide AdvReac Unknown Unknown Verified 08/23/23 16:34 Antibiotics) Consultations 08/23/23 16:07 ED Decision to Admit Stat 08/23/23 18:06 Consult General Surgery Routine Procedures Performed Laboratory Results WBC 6.48 K/ul (4.8-10.8) 08/25/23 06:13 RBC 4.19 M/uL (4.20-5.40) L 08/25/23 06:13 Hgb 12.9 g/dl (12.0-16.0) 08/25/23 06:13 POC Hgb 14.6 g/dl (12.0-16.0) 08/23/23 14:40 Hct 38.9 % (37.0-47.0) 08/25/23 06:13 POC Hct 43 % (37-47) 08/23/23 14:40 MCV 92.8 fL (80.0-100.0) 08/25/23 06:13 MCH 30.8 pg (25.0-34.0) 08/25/23 06:13 MCHC 33.2 g/dL (32.0-36.0) 08/25/23 06:13 RDW Std Deviation 44.2 fL (36.4-46.3) 08/25/23 06:13 RDW Coeff of Viraj 13.1 % (11.5-14.5) 08/25/23 06:13 Plt Count 241 K/uL (130-400) 08/25/23 06:13 MPV 10.4 fL (9.4-12.4) 08/25/23 06:13 Immature Gran % (Auto) 0.5 % 08/23/23 14:40 Neut % (Auto) 80.5 % 08/23/23 14:40 Lymph % (Auto) 11.6 % 08/23/23 14:40 [place]bot % (Auto) 6.9 % 08/23/23 14:40 Eos % (Auto) 0.2 % 08/23/23 14:40 Baso % (Auto) 0.3 % 08/23/23 14:40 Neut # (Auto) 11.03 K/uL (1.40-6.50) H 08/23/23 14:40 Lymph # (Auto) 1.59 K/uL (1.20-3.40) 08/23/23 14:40 [place]bot # (Auto) 0.94 K/uL (0.11-0.59) H 08/23/23 14:40 Eos # (Auto) 0.03 K/uL (0.00-0.50) 08/23/23 14:40 Baso # (Auto) 0.04 K/uL (0.00-0.20) 08/23/23 14:40 Immature Gran # (Auto) 0.07 K/uL (0.01-0.20) 08/23/23 14:40 PT 11.1 Seconds (9.0-12.0) 08/23/23 14:40 INR 1.0 (0.9-1.1) 08/23/23 14:40 POC Sodium 133 mmol/L (135-144) L 08/23/23 14:40 Sodium 137 mmol/L (136-145) 08/25/23 06:13 POC Potassium 3.4 mmol/L (3.3-5.0) 08/23/23 14:40 Potassium 3.7 mmol/L (3.5-5.1) 08/25/23 06:13 POC Chloride 96 mmol/L (101-112) L 08/23/23 14:40 Chloride 104 mmol/L (98-107) 08/25/23 06:13 Carbon Dioxide 30 mmol/L (21-32) 08/25/23 06:13 POC Total CO2 26 mmol/L (24-31) 08/23/23 14:40 Anion Gap 3 (3-11) 08/25/23 06:13 POC Anion Gap 14.0 mmol/L (16-25) L 08/23/23 14:40 POC BUN 13 mg/dl (7-18) 08/23/23 14:40 BUN 6 mg/dl (6-23) 08/25/23 06:13 Creatinine 0.57 mg/dl (0.6-1.2) L 08/25/23 06:13 POC Creatinine 0.7 mg/dl (0.6-1.3) 08/23/23 14:40 Est Cr Clr Drug Dosing 97.2 ml/min 08/25/23 06:13 Est GFR ( Amer) 109.6 ml/min 08/25/23 06:13 Est GFR (Non-Af Amer) 94.6 ml/min 08/25/23 06:13 BUN/Creatinine Ratio 10.5 (10-20) 08/25/23 06:13 Glucose 99 mg/dl (70-99(Fasting)) 08/25/23 06:13 POC Glucose (other) 121 mg/dl (70-99) H 08/23/23 14:40 Calcium 8.3 mg/dl (8.6-10.3) L 08/25/23 06:13 POC Ioniz Calcium Mikala 1.14 mmol/l (1.12-1.32) 08/23/23 14:40 Phosphorus 3.5 mg/dl (2.5-4.9) 08/24/23 06:44 Magnesium 1.9 mg/dl (1.7-2.4) 08/25/23 06:13 Total Bilirubin 0.9 mg/dl (0.2-1.0) 08/23/23 14:40 AST 13 U/L (13-39) 08/23/23 14:40 ALT 12 U/L (7-52) 08/23/23 14:40 Alkaline Phosphatase 61 U/L (34-104) 08/23/23 14:40 Troponin I High Sens 8.0 pg/ml (0-14) 08/23/23 14:40 Total Protein 6.9 gm/dl (6.0-8.3) 08/23/23 14:40 Albumin 4.1 gm/dl (3.4-5.0) 08/23/23 14:40 Globulin 2.8 gm/dl (2.5-4.0) 08/23/23 14:40 Albumin/Globulin Ratio 1.5 (0.9-2) 08/23/23 14:40 Lipase 4 U/L (11-82) L 08/23/23 14:40 Urine Color Yellow 08/23/23 21:14 Urine Appearance Clear (Clear) 08/23/23 21:14 Urine pH 7.5 (4.5-7.5) 08/23/23 21:14 Ur Specific [place] 1.025 (1.000-1.030) 08/23/23 21:14 Urine Protein Negative (Negative) 08/23/23 21:14 Urine Glucose (UA) Negative (Negative) 08/23/23 21:14 Urine Ketones Negative (Negative) 08/23/23 21:14 Urine Blood Negative (Negative) 08/23/23 21:14 Urine Nitrite Negative (Negative) 08/23/23 21:14 Urine Bilirubin Negative (Negative) 08/23/23 21:14 Urine Urobilinogen Negative (Negative) 08/23/23 21:14 Ur Leukocyte Esterase Negative (Negative) 08/23/23 21:14 Impressions Abdomen/Pelvis CTA 08/23/23 14:39 CT ANGIOGRAM OF THE ABDOMEN AND PELVIS CLINICAL HISTORY: Epigastric abdominal pain. COMPARISON STUDY: No priors. TECHNIQUE: Following the IV administration of 112 cc of Optiray 350, CT angiogram of the abdomen and pelvis was performed from the lung bases the proximal femora. Images are reviewed in the axial, sagittal, and coronal planes. 3-D MIPS images are created and assessed. IV contrast was administered without complication. A dose lowering technique was utilized adhering to the principles of ALARA. FINDINGS: Lower chest: The heart is enlarged and without pericardial effusion. The coronary arteries are densely calcified. There are small pleural effusions, left larger than right noting bibasilar scarring/atelectasis. There is no airspace consolidation typical for pneumonia. Liver: The contrast-enhanced liver is normal in size, contour, and attenuation. There is no intrahepatic biliary ductal dilatation. The main portal veins appear patent. Gallbladder: Unremarkable. Spleen: Normal in size and attenuation noting heterogeneous arterial phase enhancement. Pancreas: Unremarkable. Adrenal glands: There is nonspecific thickening of the adrenal glands. Kidneys: The contrast enhanced kidneys are normal in size and without hydronephrosis. The kidneys enhance symmetrically. Abdominal aorta and iliac arteries: There is advanced atherosclerotic calcification and mild ectasia of the abdominal aorta. The abdominal aorta is patent. No dissection is seen. The iliac arteries are patent bilaterally noting advanced atherosclerotic plaque and irregularity. Major branches of the abdominal aorta: The celiac trunk, superior mesenteric, and inferior mesenteric arteries are widely patent. Hepatic arterial anatomy is conventional. The splenic artery is patent. Single bilateral renal arteries are widely patent. Bowel: There are hyperemic appearing loops of relatively decompressed small b owel in the left lower quadrant (best seen on axial image #482) with surrounding infiltration and trace interloop fluid. There are distended and fluid-filled loops of more proximal small bowel in the left midabdomen which measure up to 2.8 cm in diameter. There is an apparent focal twisting/transition point in the left midabdomen seen on axial image #371. The distal small bowel appears decompressed. There is no pneumatosis intestinalis or portal venous gas. There are scattered colonic diverticula without CT evidence of acute diverticulitis. Mild/moderate fecal retention is noted throughout the colon. A small duodenal diverticulum is noted. The appendix is not visualized. Peritoneum: There is no intraperitoneal free air or abdominal ascites. Lymphadenopathy: None. Pelvic viscera: The bladder, uterus, and adnexa are normal as visualized. There are bilateral adnexal surgical clips. A small volume of free fluid is seen in the cul-de-sac. Skeletal structures: The skeletal structures are osteopenic. There is mild to moderate lumbosacral spondylosis. No lytic or blastic bony lesions are seen. Advanced arthritic changes seen in the left hip. IMPRESSION: 1. Unremarkable CT angiogram of the abdominal aorta and its major branches. 2. There are decompressed loops of small bowel in the left mid to lower abdomen which appear hyperemic with surrounding mesenteric infiltration and fluid. The appearance is consistent with a nonspecific enteritis. 3. The proximal small bowel loops are distended, and there is an apparent focal transition point in the left mid abdomen. Although this may be related to an associated ileus, a developing small bowel obstruction is not excluded. The distal small bowel loops are decompressed. Clinical correlation will be essential. 4. No intraperitoneal free air is identified. There is no pneumatosis intestinalis or portal venous gas. 5. Cardiomegaly and small pleural effusions. 6. Additional findings as above.. ACT 112: Negative or not required by law. Electronically signed by: Jorje Hu M.D. 08/23/2023 3:39 PM Chest CTA 08/23/23 14:39 CT ANGIOGRAPHY OF THE CHEST DISSECTION PROTOCOL CLINICAL HISTORY: chest/epigastric pain to back COMPARISON STUDY: No previous studies for comparison. TECHNIQUE: Before and following the IV administration of 112 mL of Optiray, helical axial images of the chest were obtained. Maximal intensity projections and sagittal and coronal reformats were viewed on an independent 3D workstation. IV contrast was administered without complication. Automated exposure control was utilized for the study. A dose lowering technique was utilized adhering to the principles of ALARA. CT DOSE: 2571.78 mGy.cm FINDINGS: The caliber of the thoracic aorta is normal. There is no thoracic aortic dissection or intramural hematoma. There is moderate atherosclerotic plaque of the thoracic aorta. The heart is mildly enlarged. There is no pericardial effusion. There is moderate coronary artery calcification. Small left and trace right pleural effusions are present. Subpleural opacities favor atelectasis. There is no consolidation to suggest pneumonia. Suspected mild pulmonary edema with interlobular septal thickening. There are no pulmonary emboli. No acute fractures within the bony thorax. The abdomen and pelvis CT will be reported separately. IMPRESSION: 1. No thoracic aortic dissection. 2. Small left and trace right pleural effusions. 3. Mild cardiomegaly and moderate coronary artery calcification. 4. Mild interstitial pulmonary edema. ACT 112: Negative or not required by law. Electronically signed by: Claudio Sterling M.D. 08/23/2023 3:15 PM KUB X-Ray 08/25/23 08:21 XR KUB/Abdomen 1 view CLINICAL HISTORY: R/O SBO TECHNIQUE: 1 view of the abdomen was obtained. Comparison: Comparison is made to chest radiograph 08/24/2023 FINDINGS: Stable surgical clips are seen in the pelvis compatible with prior tubal ligation. Degenerative changes are seen in the visualized skeleton. The bowel gas pattern is nonobstructive. A moderate amount of stool is noted within the large bowel. IMPRESSION: No evidence of small bowel obstruction. ACT 112: Negative or not required by law. Electronically signed by: Tank Carmen M.D. 08/25/2023 10:03 AM Ordered Studies 08/23/23 14:39 CT angio abdomen pelvis w con Stat CT angio chest dissec wo/w con Stat Hospital Course (1) Abdominal pain, acute, epigastric: (2) Small bowel obstruction: Patient is a 67-year-old female with PMH HTN, dyslipidemia, CVA, RA, chronic prednisone use, vasculopathy presents to the ER with abdominal pain, nausea that started today. Denies vomiting, fever/chills. Small bowel obstruction H/O appendectomy --CT ABD:Unremarkable CT angiogram of the abdominal aorta and its major branches. There are decompressed loops of small bowel in the left mid to lower abdomen which appear hyperemic with surrounding mesenteric infiltration and fluid. The appearance is consistent with a nonspecific enteritis. The proximal small bowel loops are distended, and there is an apparent focal transition point in the left mid abdomen. Although this may be related to an associated ileus, a developing small bowel obstruction is not excluded. The distal small bowel loops are decompressed. Clinical correlation will be essential. No intraperitoneal free air is identified. There is no pneumatosis intestinalis or portal venous gas. Cardiomegaly and small pleural effusions. -- Conservative management Continue IV fluids Appreciate surgery input Had BM KUB today showed no signs of bowel obstruction Advanced to low fiber diet today Plan to discharge home today (3) Rheumatoid arthritis: (4) Steroid dependence: Follows with Dr. Sierra On abatacept and methotrexate weekly Continue prednisone, hydroxychloroquine (5) HTN (hypertension): BP stable Continue losartan, metoprolol succinate HCTZ--hold for now (6) GERD (gastroesophageal reflux disease): Continue PPI (7) Dyslipidemia: Resume pravastatin as able (8) CVA (cerebral vascular accident): History CVA Continue aspirin Resume statin as able (9) Obesity: BMI: 33 DVT Prophylaxis SCDs for now Code Status Full Code Disposition Home Total Time Total Time Spent Total Time Spent (In Minutes): 59 minutes Discharge Plan Discharge Items Patient Disposition: Home - Self-Care Reason For Visit: ABDOMINAL PAIN Discharge Diagnosis: Small bowel obstruction Activity: Per Instructions section Exercise/Sports: Gradually increase as tolerated Non-emergency contact: Primary Care Provider Call non-emergency contact if: you have any medication questions, your symptoms worsen, your pain is concerning for you and you have a fever Follow-up/Referrals: Ellis Matos MD [Primary Care Provider] - Diet: Low Fiber Addtl Attending Provider Instructions: Follow-up with your primary care physician Dr. Matos in 1 week -- Continue low fiber diet for now. Discussed with your primary care physician for further instructions as advised. --Can use stool softener as needed. Seek immediate medical attention if your symptoms reoccur or worsen Please take all medications as instructed on discharge list below. Please call if you have any questions or problems. You can reach a [facility] hospitalist on duty at [facility] 24 hours a day by calling [phone] Pending Studies at Discharge: No Stand-Alone Forms: My [facility], Smoking Cessation Medications and DC Order Prescriptions: Continued hydrocodone-acetaminophen 5-325 mg tablet 1 tab PO Q6H PRN (Reason: Pain) alendronate 70 mg tablet 70 mg PO WK Rx Instructions: Saturday methotrexate sodium 2.5 mg tablet 20 mg PO WK Rx Instructions: Saturday temazepam 30 mg capsule 15 mg PO HS losartan 25 mg tablet 25 mg PO QAM omeprazole 20 mg capsule,delayed release(DR/EC) 20 mg PO BID folic acid 1 mg tablet 1 mg PO QAM pravastatin 20 mg tablet 20 mg PO HS hydrochlorothiazide 25 mg tablet 25 mg PO QAM metoprolol succinate 25 mg tablet extended release 24 hr 25 mg PO HS hydroxychloroquine 200 mg tablet 200 mg PO HS [place] 125 mg/mL syringe 125 mg SUBCUT WK Rx Instructions: Saturday fluticasone furoate-vilanterol [Breo Ellipta] 100-25 mcg/dose blister with device 2 inh INHALATION QAM multivitamin Tablet 1 tab PO DAILY aspirin 325 mg Tablet 325 mg PO DAILY prednisone 5 mg tablet 5 mg PO DAILY albuterol sulfate 90 mcg/actuation HFA aerosol inhaler 2 puff INHALATION Q4H PRN (Reason: Shortness Of Breath) cholecalciferol (vitamin D3) 125 mcg (5,000 unit) Capsule 125 mcg PO DAILY Discharge Orders: Discharge Order (Routine); Ordered 08/25/23 Ordered By: Dayton Almendarez Admission Data Admit Date/Time: 08/23/23 16:36 Attending Provider: Dayton Almendarez Admit Provider: Jerri Billings Primary Care Provider: Ellis Matos Other Providers: Jerri Billings; Matthew Aldridge
[2023-08-28] MEDS ORDERED: metHOTREXate sodium 2.5 MG TAB PO SCH (09:00)
== END 2023-08-25 14:46 | disposition home or self-care (01) | DRG 390 ==
LOC: ED 14:17 → SUATTDRO 16:36 → 2N 16:36